=== PATIENT | female | born 1965 | race Caucasian/White ===

== ENCOUNTER 2021-02-06 16:05 | Inpatient (IN) | payer SELFPAY ==
[2021-02-06] VITALS (7 sets, daily range): BP systolic 99–145; BP diastolic 79–113; PULSE 120–157; RESP 16–27; TEMP 36.6; O2SAT 94–96; BMI 42.5
--- NOTE | 2021-02-06 16:33 | XRR_ITS ---
PROCEDURE INFORMATION: Exam: XR Chest Exam date and time: 02/06/2021 4:37 PM Age: 55 years old Clinical indication: Shortness of breath; Additional info: SOB TECHNIQUE: Imaging protocol: XR of the chest. Views: 1 view. COMPARISON: No relevant prior studies available. FINDINGS: Lungs: Well inflated and clear. Pleural spaces: Unremarkable. No pleural effusion. No pneumothorax. Heart/Mediastinum: The cardiac shadow is significantly enlarged. Bones/joints: No acute abnormality. XR/XR chest 1V portable [id number] IMPRESSION: Significant enlargement of the cardiac shadow.
--- NOTE | 2021-02-06 16:36 | ECG_ITS ---
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1965 Requested By: Gomez Ty Order Number: [id number] Reading MD: DAVID TY Measurements Intervals [place] Rate: 154 P: [place]: QRS: 64 QRSD: 64 T: 0 QT: 142 QTc: 227 Interpretive Statements ATRIAL FLUTTER/TACHYCARDIA WITH RAPID VENTRICULAR RESPONSE LOW QRS VOLTAGE IN PRECORDIAL LEADS [QRS DEFLECTION < 1.0 mV IN CHEST LEADS] NONSPECIFIC ST & T-WAVE ABNORMALITY CRITICAL TEST RESULT No previous ECG available for comparison Electronically Signed On 02-06-2021 21:15:47 CDT by DAVID TY [id number]
--- NOTE | 2021-02-06 16:42 | W.ED.SOB ---
HPI - SOB/Dyspnea General: Chief Complaint: Shortness of Breath/Dyspnea Stated Complaint: sob Time Seen by Provider: 02/06/21 16:22 History of Present Illness: HPI Narrative: 85-year-old female comes in with shortness of breath. She states this started on Sunday. She states Sunday and Sunday night at work she felt hot and then cold. She does not think she had a fever though. She has been having a very little cough and not coughing anything up. She denies nausea or vomiting, no pain or burning with urination, no diarrhea or constipation, no abdominal pain no flank pain. She has no previous history of any asthma, emphysema or COPD. She has not used inhalers previously however she states that 2 hours ago she used a friend's albuterol per nebulizer. She states that did seem to help. She denies any chest pain. She states she can tell that her heart is going a little fast but she denies any palpitations. She states since Sunday her heart rate has been 100-150. She states if she tries to exert herself she gets more short of breath. Associated symptoms: Reports orthopnea and palpitations (Patient states she did feel her heart beating fast. She denied any chest p); Deny abdominal pain, chest pain, extremity pain, fever(s), hemoptysis, lightheadedness, nausea, syncope or vomiting Review of Systems Const: Reports: other (Patient states she did feel hot and cold.); Denies: fever(s), chills, body aches, change in weight or night sweats Card: Reports: palpitations (Patient states she did feel her heart beating fast. She denied any chest p), dyspnea on exertion and orthopnea; Denies: chest pain, edema, swelling of feet/ankles, lightheadedness, syncope or pre-syncope Resp: Reports: dyspnea and wheezing; Denies: productive cough, non-productive cough, pain on inspiration or hemoptysis GI: Denies: abdominal pain, nausea or vomiting : Denies: flank pain, difficulty voiding, dysuria, urinary frequency or urinary urgency Musc: Denies: neck pain, back pain, extremity pain, extremity swelling, joint pain or joint swelling Neuro: Denies: headache(s), numbness in extremities, weakness in extremities or lack of coordination Physical Exam Narrative: EXAM NARRATIVE: 55-year-old female comes in with shortness of breath. She appears to be in no acute distress. Const: COMMON NORMALS: patient oriented x3 and alert GENERAL APPEARANCE: not lethargic ORIENTATION/CONSCIOUSNESS: Yes oriented to person, Yes oriented to place and Yes oriented to time; not lethargic HENMT: COMMON NORMALS: normocephalic, atraumatic and hearing grossly normal bilaterally HEAD & SCALP: normocephalic and atraumatic MOUTH: Normal oral and palatal mucosa present Eye: COMMON NORMALS: Equal, round and reactive pupils present, EOMs intact bilaterally, conjunctivae normal, no scleral icterus and no papilledema GENERAL EYE: appearance normal, both eyes and all related structures and normal light reflex CONJUNCTIVA: Yes conjunctivae normal PUPIL: Yes Equal, round and reactive pupils present DIRECT OPHTHALMOSCOPY: Yes normal light reflex and Yes no papilledema Neck/C-Spine: COMMON NORMALS: full ROM, no lymphadenopathy, supple, no meningeal signs, no JVD and Thyroid normal GENERAL: Yes normal visual inspection, Yes trachea midline and No anterior neck swelling THYROID: Thyroid normal CERVICAL SPINE: Yes cervical ROM normal and No pain with cervical ROM Resp: COMMON NORMALS: negative for No retractions, negative for No use of accessory muscles and negative for clear to auscultation bilaterally EFFORT & INSPECTION: Yes able to speak in complete sentences, Yes symmetric chest movement, No abnormal respiratory pattern, No tachypneic, No respiratory distress, No decreased respiratory effort, No labored, No grunting, No stridor, No Actively coughing, No retractions and No uses accessory muscles AUSCULTATION: not clear to auscultation bilaterally, crackles, no rales, no rhonchi, wheezes and diminished lung sounds Cardio: COMMON NORMALS: no JVD, regular rate, regular rhythm, No gallops present (Cardio), No clicks present (Cardio), No murmurs present (Cardio), No rub (Cardio) and Peripheral pulses 2+ throughout RATE: regular rate RHYTHM: regular rhythm HEART SOUNDS: no murmurs PERIPHERAL PULSES: Peripheral pulses 2+ throughout GI: COMMON NORMALS: Soft to palpation, non-tender, No hepatosplenomegaly present, no masses and no bruits INSPECTION: Yes normal to inspection AUSCULTATION: Yes normoactive bowel sounds PALPATION: Yes Soft to palpation, No Firmness to palpation present (GI), No Tenderness to palpation present (GI), No Guarding due to palpation present (GI), No Rigid due to palpation and Yes No hepatosplenomegaly present : COMMON NORMALS: Yes no CVA tenderness BLADDER/KIDNEY EXAM: Yes no CVA tenderness Back/Pelvis: COMMON NORMALS: no CVA tenderness Extremity: COMMON NORMALS: normal to inspection, full ROM, capillary refill normal, no joint enlargement, no clubbing, cyanosis or edema, no calf tenderness and no pedal edema GENERAL: Yes normal exam except as noted Neuro: COMMON NORMALS: patient oriented x3, moves all extremities and no focal motor deficits SENSORIUM/ORIENTATION: Yes alert, Yes oriented to person, Yes oriented to place, Yes oriented to time, Yes Orientation impaired, No lethargic, No somnolent, No obtunded and No stuporous MENINGEAL SIGNS: Yes no meningeal signs Course Vital Signs: Vital signs: Vital Signs Temperature 97.8 F 02/06/21 16:09 Pulse Rate 157 H 02/06/21 16:09 Respiratory Rate 18 02/06/21 16:09 Blood Pressure 139/101 02/06/21 16:09 Pulse Oximetry 96 02/06/21 16:09 MDM - SOB/Dyspnea Lab Data: Labs: Lab Results 02/06/21 02/06/21 02/06/21 Range/Units 17:00 17:00 17:00 WBC 8.1 (4.0-10.0) 10^3/ uL RBC 4.53 (4.1-5.3) 10^6/u L Hgb 12.9 (11.5-15.3) g/dL Hct 41.5 (37.0-47.0) % MCV 91.6 (81-99) fL MCH 28.5 (28.0-34.0) pg MCHC 31.1 (30.0-36.0) g/dL RDW 12.9 (12.1-15.1) % Plt Count 295 (130-400) 10^3/c mm MPV 11.1 H (7.4-10.4) fL Neut % (Auto) 72.7 % Lymph % (Auto) 19.7 % [place] % (Auto) 5.1 % Eos % (Auto) 1.5 % Baso % (Auto) 0.6 % Neut # (Auto) 5.90 (1.8-7.7) 10^3/u L Lymph # (Auto) 1.6 (0.8-4.8) 10^3/u L [place] # (Auto) 0.4 (0.2-0.9) 10^3/u L Eos # (Auto) 0.1 (0.0-0.8) 10^3/u L Baso # (Auto) 0.1 (0.0-0.1) 10^3/u L Nucleated RBC % (a uto) 0 % Nucleated RBCs # 0.0 /100WBC Sodium 141 (136-145) mmol/L Potassium 4.0 (3.5-5.1) mmol/L Chloride 106 (98-107) mmol/L Carbon Dioxide 24 (22-29) mmol/L Anion Gap 15.0 (5-19) BUN 17 (6-20) mg/dL Creatinine 0.5 (0.5-0.9) mg/dL GFR Calculation 127.2 (90-130) mL/min Glucose 108 (65-115) mg/dL Calculated Osmolal ity 294 (285-295) mOsm/k g Lactate (0.5-2.2) mmol/L Calcium 8.2 L (8.5-10.5) mg/dL Magnesium 2.0 (1.7-2.3) mg/dL Total Bilirubin 0.5 (0.15-1.2) mg/dL AST 114 H (0-32) U/L ALT 184 H (0-33) U/L Alkaline Phosphata se 164 H (35-105) IU/L Troponin T Baselin e 32 H (0-10) ng/L NT-Pro-B Natriuret Pep 2866 H (0-125) pg/mL Total Protein 6.2 L (6.6-8.7) g/dL Albumin 4.1 (3.5-5.2) g/dL Globulin 2.1 (1.3-4.6) g/dL 02/06/21 Range/Units 17:14 WBC (4.0-10.0) 10^3/ uL RBC (4.1-5.3) 10^6/u L Hgb (11.5-15.3) g/dL Hct (37.0-47.0) % MCV (81-99) fL MCH (28.0-34.0) pg MCHC (30.0-36.0) g/dL RDW (12.1-15.1) % Plt Count (130-400) 10^3/c mm MPV (7.4-10.4) fL Neut % (Auto) % Lymph % (Auto) % [place] % (Auto) % Eos % (Auto) % Baso % (Auto) % Neut # (Auto) (1.8-7.7) 10^3/u L Lymph # (Auto) (0.8-4.8) 10^3/u L [place] # (Auto) (0.2-0.9) 10^3/u L Eos # (Auto) (0.0-0.8) 10^3/u L Baso # (Auto) (0.0-0.1) 10^3/u L Nucleated RBC % (a uto) % Nucleated RBCs # /100WBC Sodium (136-145) mmol/L Potassium (3.5-5.1) mmol/L Chloride (98-107) mmol/L Carbon Dioxide (22-29) mmol/L Anion Gap (5-19) BUN (6-20) mg/dL Creatinine (0.5-0.9) mg/dL GFR Calculation (90-130) mL/min Glucose (65-115) mg/dL Calculated Osmolal ity (285-295) mOsm/k g Lactate 1.3 (0.5-2.2) mmol/L Calcium (8.5-10.5) mg/dL Magnesium (1.7-2.3) mg/dL Total Bilirubin (0.15-1.2) mg/dL AST (0-32) U/L ALT (0-33) U/L Alkaline Phosphata se (35-105) IU/L Troponin T Baselin e (0-10) ng/L NT-Pro-B Natriuret Pep (0-125) pg/mL Total Protein (6.6-8.7) g/dL Albumin (3.5-5.2) g/dL Globulin (1.3-4.6) g/dL Discharge Plan Discharge Prescriptions: No Action multivitamin Tablet 1 tab PO DAILY RF: 0 aspirin 325 mg Tablet 325 mg PO DAILY RF: 0 Tylenol Extra Strength 500 mg Tablet 1,000 mg PO PRN RF: 0 Coding Level of Care Code ED Secondary History Teacher for Richie Weber
[2021-02-06 17:10] LABS: Basophils # 0.1 10^3/uL (0.0-0.1); Basophils % 0.6 %; Eosinophils # 0.1 10^3/uL (0.0-0.8); Eosinophils % 1.5 %; Hematocrit 41.5 % (37.0-47.0); Hemoglobin 12.9 g/dL (11.5-15.3); Lymphocytes # 1.6 10^3/uL (0.8-4.8); Lymphocytes % 19.7 %; Mean Corpuscular HGB Conc 31.1 g/dL (30.0-36.0); Mean Corpuscular Hemoglobin 28.5 pg (28.0-34.0); Mean Corpuscular Volume 91.6 fL (81-99); Mean Platelet Volume 11.1 fL (7.4-10.4); Monocytes # 0.4 10^3/uL (0.2-0.9); Monocytes % 5.1 %; Neutrophils % 72.7 %; Nucleated Red Blood Cells % 0 %; Platelet Count 295 10^3/cmm (130-400); Red Blood Count 4.53 10^6/uL (4.1-5.3); Red Cell Distribution Width 12.9 % (12.1-15.1); White Blood Count 8.1 10^3/uL (4.0-10.0)
[2021-02-06 17:31] LABS: Troponin(5th) Baseline 32 ng/L (0-10)
[2021-02-06 17:44] LABS: Lactate (Lactic Acid level) 1.3 mmol/L (0.5-2.2)
[2021-02-06 17:48] LABS: Alanine Aminotransferase 184 U/L (0-33); Albumin Level 4.1 g/dL (3.5-5.2); Alkaline Phosphatase 164 IU/L (35-105); Aspartate Amino Transferase 114 U/L (0-32); Blood Urea Nitrogen 17 mg/dL (6-20); Calcium 8.2 mg/dL (8.5-10.5); Carbon Dioxide 24 mmol/L (22-29); Chloride 106 mmol/L (98-107); Globulin 2.1 g/dL (1.3-4.6); Glomerular Filtration Rate 127.2 mL/min (90-130); Glucose 108 mg/dL (65-115); NT Pro B Type Natriuretic Pept 2866 pg/mL (0-125); Osmolality Calculated 294 mOsm/kg (285-295); Sodium 141 mmol/L (136-145); Total Bilirubin 0.5 mg/dL (0.15-1.2); Total Protein 6.2 g/dL (6.6-8.7)
[2021-02-06 18:21] LABS: INR 1.09 (0.8-1.2); Partial Thromboplastin Time 28.3 SECONDS (23.9-36.7)
--- NOTE | 2021-02-06 18:36 | ECG_ITS ---
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1965 Requested By: Gomez Ty Order Number: [id number] Reading MD: DAVID TY Measurements Intervals [place] Rate: 155 P: [place]: QRS: 63 QRSD: 105 T: -84 QT: 294 QTc: 473 Interpretive Statements ATRIAL FLUTTER/TACHYCARDIA WITH RAPID VENTRICULAR RESPONSE MODERATE T-WAVE ABNORMALITY, CONSIDER INFERIOR ISCHEMIA [-0.1+ mV T WAVE IN II/aVF] CRITICAL TEST RESULT Compared to ECG 02/06/2021 16:47:43 Possible ischemia now present T-wave abnormality still present Electronically Signed On 02-06-2021 21:16:33 CDT by DAVID TY [id number]
[2021-02-06] MEDS: labetalol 5 mg/mL SDV 20mL 10 MG IVP ×2 (18:50→20:20)
[2021-02-06] MEDS: esmolol drip 2,500 MG/250 ML PREMIX 30.6 MG IV (19:25)
[2021-02-06 20:15] LABS: Troponin 5 2HR 40.75 ng/L (0-10); Troponin 5 2HR Delta 8.75 ABS# (0-10)
--- NOTE | 2021-02-06 22:36 | ECG_ITS ---
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1965 Requested By: Gomez Ty Order Number: [id number] Reading MD: DAVID TY Measurements Intervals [place] Rate: 144 P: 73 IA: 154 QRS: 37 QRSD: 78 T: 191 QT: 302 QTc: 468 Interpretive Statements SINUS TACHYCARDIA, POSSIBLE ATRIAL FLUTTER LOW QRS VOLTAGE IN PRECORDIAL LEADS [QRS DEFLECTION < 1.0 mV IN CHEST LEADS] NONSPECIFIC T-WAVE ABNORMALITY Compared to ECG 02/06/2021 18:38:46 Low QRS voltage now present Possible ischemia no longer present T-wave abnormality still present Electronically Signed On 02-06-2021 21:16:28 CDT by DAVID TY [id number]
[2021-02-06] MEDS: sodium chloride 0.9% 500 ML 999 ML IV (22:46)
[2021-02-06] MEDS: LORazepam 2 mg/mL INJ 1 mL 1 MG IVP (22:46)
[2021-02-06 23:01] LABS: D Dimer 1.52 ug/mIFEU (0-0.59)
--- NOTE | 2021-02-06 23:13 | CTR_ITS ---
PROCEDURE INFORMATION: Exam: CTA Chest With Contrast Exam date and time: 02/06/2021 11:38 PM Age: 55 years old Clinical indication: Shortness of breath; Patient HX: C/O cp and SOB worsening x 1 week hr 140; Additional info: Chest pain TECHNIQUE: Imaging protocol: Computed tomographic angiography of the chest with contrast. 3D rendering (Not supervised by radiologist): MIP and/or 3D reconstructed images were created by the technologist. Radiation optimization: All CT scans at this facility use at least one of these dose optimization techniques: automated exposure control; mA and/or kV adjustment per patient size (includes targeted exams where dose is matched to clinical indication); or iterative reconstruction. Contrast material: OMNI 350; Contrast volume: 83 ml; Contrast route: INTRAVENOUS (IV); COMPARISON: CR (CHEST, ) 02/06/2021 4:55 PM RADIATION DOSE METRICS: Total DLP (mGy-cm): 512.33 FINDINGS: Pulmonary arteries: The segmental and subsegmental right upper lobe pulmonary arteries are not well evaluated due to streak artifact. Otherwise no evidence of pulmonary embolus. The pulmonary trunk is normal in caliber. Aorta: No acute abnormality. Veins: Reflux of contrast into the hepatic veins and IVC. Lungs: Minimal right basilar atelectasis. Pleural spaces: Small right trace left pleural effusions. Heart: The heart is enlarged. Trace pericardial effusion. The RV to LV ratio is normal. Lymph nodes: No enlarged lymph nodes. Bones/joints: No acute fracture. Soft tissues: Within normal limits. CT/CT angio chest PE protcl [id number] IMPRESSION: 1. The segmental and subsegmental right upper lobe pulmonary arteries are not well evaluated due to streak artifact. Otherwise no evidence of pulmonary embolus. 2. Small right and trace left pleural effusions. Minimal right basilar atelectasis. 3. Cardiomegaly and trace pericardial effusion. Radiation Dose CTDIVOL = (mGy): DLP = 512.33 (mGy-cm)
--- NOTE | 2021-02-06 23:17 | PM.HP ---
Providers/Chief Complaint Chief Complaint: sob History of Present Illness Poonam Javier is a 55 year old female with no significant past medical history who presents to emergency room with complaints of shortness of breath and palpitations for last 7 to 10 days. Initially intermittent then it became more frequent and currently is constant and severe. Denies any similar episodes in the past. Evaluation in ER revealed atrial flutter with RVR. ER physician spoke with Dr. Ty, on-call steam press operator. The patient was given 2 doses of labetalol and 2 doses of diltiazem without improvement of the heart rate. Then the patient was started on esmolol drip which did not help either. Then the patient was given bolus of amiodarone, again without significant effect. 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 Denies cough, fever or chills, chest pain, nausea or vomiting, diarrhea. Denies any similar episodes in the past. Review of Systems General: Reports: 10 or more systems reviewed and unremarkable except in HPI and below Medications/Allergies Home Medications Medication Instructions Recorded Confirmed Last Taken Type acetaminophen [Tylenol Extra 1,000 mg PO PRN 02/06/21 02/06/21 Unknown History Strength] aspirin 325 mg PO DAILY 02/06/21 02/06/21 02/06/21 10:00 History multivitamin 1 tab PO DAILY 02/06/21 02/06/21 02/05/21 History Allergies Allergy/AdvReac Type Severity Reaction Status Date / Time amoxicillin Allergy ADR-Itching Verified 02/06/21 16:13 Penicillins Allergy ALGY-Rash Verified 02/06/21 16:46 Vitals/I&O/Wt Last Vital Signs Temp 97.8 F 02/06/21 16:09 Pulse 144 H 02/06/21 21:39 Resp 16 02/06/21 21:39 BP 99/85 02/06/21 21:39 Pulse Ox 96 02/06/21 21:39 02/06/21 02/06/21 02/07/21 14:59 22:59 06:59 Intake Total 161.288 / 161.288 Balance 161.288 / 161.288 Weight last 48 hrs Weight 102.058 kg Physical Exam Narrative: EXAM NARRATIVE: The patient is awake alert oriented. No acute distress. Mood and affect are appropriate. And responses are adequate. Skin is warm and dry. Worsening tremors Eyes PERRL, extraocular muscles are intact Neck supple. No JVD Normal speech Lungs bilateral wheezes are present. No respiratory distress at rest. Heart. S1, S2, irregularly irregular Abdomen is obese, soft, nontender, bowel sounds are present Extremities no edema cyanosis or calf tenderness bilaterally Neuro examination is nonfocal Data : 02/06/21 17:00 02/06/21 17:00 Other Labs: Laboratory Results WBC 8.1 10^3/uL (4.0-10.0) 02/06/21 17:00 RBC 4.53 10^6/uL (4.1-5.3) 02/06/21 17:00 Hgb 12.9 g/dL (11.5-15.3) 02/06/21 17:00 Hct 41.5 % (37.0-47.0) 02/06/21 17:00 MCV 91.6 fL (81-99) 02/06/21 17:00 MCH 28.5 pg (28.0-34.0) 02/06/21 17:00 MCHC 31.1 g/dL (30.0-36.0) 02/06/21 17:00 RDW 12.9 % (12.1-15.1) 02/06/21 17:00 Plt Count 295 10^3/cmm (130-400) 02/06/21 17:00 MPV 11.1 fL (7.4-10.4) H 02/06/21 17:00 Neut % (Auto) 72.7 % 02/06/21 17:00 Lymph % (Auto) 19.7 % 02/06/21 17:00 [place] % (Auto) 5.1 % 02/06/21 17:00 Eos % (Auto) 1.5 % 02/06/21 17:00 Baso % (Auto) 0.6 % 02/06/21 17:00 Neut # (Auto) 5.90 10^3/uL (1.8-7.7) 02/06/21 17:00 Lymph # (Auto) 1.6 10^3/uL (0.8-4.8) 02/06/21 17:00 [place] # (Auto) 0.4 10^3/uL (0.2-0.9) 02/06/21 17:00 Eos # (Auto) 0.1 10^3/uL (0.0-0.8) 02/06/21 17:00 Baso # (Auto) 0.1 10^3/uL (0.0-0.1) 02/06/21 17:00 Nucleated RBC % (auto) 0 % 02/06/21 17:00 Nucleated RBCs # 0.0 /100WBC 02/06/21 17:00 PT 14.40 SECONDS (12.1-14.9) 02/06/21 17:14 INR 1.09 (0.8-1.2) 02/06/21 17:14 APTT 28.3 SECONDS (23.9-36.7) 02/06/21 17:14 D-Dimer 1.52 ug/mIFEU (0-0.59) H 02/06/21 17:14 Sodium 141 mmol/L (136-145) 02/06/21 17:00 Potassium 4.0 mmol/L (3.5-5.1) 02/06/21 17:00 Chloride 106 mmol/L (98-107) 02/06/21 17:00 Carbon Dioxide 24 mmol/L (22-29) 02/06/21 17:00 Anion Gap 15.0 (5-19) 02/06/21 17:00 BUN 17 mg/dL (6-20) 02/06/21 17:00 Creatinine 0.5 mg/dL (0.5-0.9) 02/06/21 17:00 GFR Calculation 127.2 mL/min (90-130) 02/06/21 17:00 Glucose 108 mg/dL (65-115) 02/06/21 17:00 Calculated Osmolality 294 mOsm/kg (285-295) 02/06/21 17:00 Lactate 1.3 mmol/L (0.5-2.2) 02/06/21 17:14 Calcium 8.2 mg/dL (8.5-10.5) L 02/06/21 17:00 Magnesium 2.0 mg/dL (1.7-2.3) 02/06/21 17:00 Total Bilirubin 0.5 mg/dL (0.15-1.2) 02/06/21 17:00 AST 114 U/L (0-32) H 02/06/21 17:00 ALT 184 U/L (0-33) H 02/06/21 17:00 Alkaline Phosphatase 164 IU/L (35-105) H 02/06/21 17:00 Troponin T Baseline 32 ng/L (0-10) H 02/06/21 17:00 Troponin T 120 Minute 40.75 ng/L (0-10) H 02/06/21 19:35 Delta Troponin T 8.75 ABS# (0-10) 02/06/21 19:35 NT-Pro-B Natriuret Pep 2866 pg/mL (0-125) H 02/06/21 17:00 Total Protein 6.2 g/dL (6.6-8.7) L 02/06/21 17:00 Albumin 4.1 g/dL (3.5-5.2) 02/06/21 17:00 Globulin 2.1 g/dL (1.3-4.6) 02/06/21 17:00 Impressions Chest X-Ray 02/06/21 16:33 IMPRESSION: Significant enlargement of the cardiac shadow. Micro: Microbiology 02/06/21 17:40 Blood Culture - Preliminary Blood SPECIMEN COLLECTED 02/06/21 17:14 Blood Culture - Preliminary Blood SPECIMEN COLLECTED A&P Additional A&P Information 55-year-old female with no significant past medical history who is presenting with palpitations and shortness of breath. Has atrial flutter with RVR. BNP is elevated. Atrial flutter, RVR. Did not respond to beta-andrew or calcium channel andrew. Did not improve with bolus of amiodarone. Currently amiodarone drip is being initiated. Discussed with Dr. Ty. We will try digoxin if amiodarone drip is not effective. Additionally the patient will receive IV fluids for possible dehydration. Her D-dimer is elevated. We will send her to CT to rule out PE. Will start Lovenox. We will check her TSH Dehydration. Gentle hydration. Elevated BNP. Her CHF could be due to RVR. I think it is reasonable to try to gently hydrate her in order to control her ventricular rate. However if her breathing worsens will consider diuretics. Elevated LFTs. She denies history of alcohol. Could be from fatty liver. We will monitor this. We will probably require outpatient work-up and close monitoring. CODE STATUS. She wants to be full code. The plan of care was discussed with the patient and her significant other who is at the bedside. They verbalized understanding and agreement. Attestations Medical Necessity Statement*: Based on my assessment of her current condition and findings she needs to be admitted to ICU for very close monitoring and IV cardiac medications. I expect that the patient will spend more than 2 midnights in the hospital. Critical care time spent on this encounter is 55 minutes. Coding Level of Care Code Acute Export Coordinator for Richie Weber
[2021-02-06 23:51] LABS: Troponin 5 6HR 34.93 ng/L (0-10); Troponin 5 6HR Delta 2.93 ng/L (0-12)
[2021-02-07] VITALS (43 sets, daily range): BP systolic 103–141; BP diastolic 55–110; PULSE 0–146; RESP 13–42; TEMP 36.3; O2SAT 87–98
[2021-02-07] MEDS: iohexol 350 mg/mL 100 mL Btl IV (00:18)
[2021-02-07] MEDS: enoxaparin 100 mg/mL Syringe SUBCUT ×2 (00:48→10:46)
[2021-02-07 02:19] LABS: Add Urine Microscopic? YES; Bilirubin Urine 1+ (Negative); Blood Urine 2+ (Negative); Glucose Urine UA Norm (Normal); Ketones Urine 1+ (Negative); Leukocyte Esterase Urine Negative (Negative); Nitrate Urine Negative (Negative); Protein Urine 2+ (Negative); Urine Appearance SL Hazy (CLEAR); Urine Color Yellow (Yellow); Urobilinogen Urine 1 mg/dL (Negative); pH Urine 5 (5-7)
[2021-02-07 02:20] LABS: Add Urine Culture? No; Bacteria Urine 3+ /hpf; Mucus Urine 2+ /hpf; Squamous Epithelial Cell Urine >100 /hpf (0-5)
[2021-02-07] MEDS: LORazepam 2 mg/mL INJ 1 mL 1 MG IVP (02:35)
[2021-02-07] MEDS: digoxin 250 mcg/ml INJ 2 mL IVP (02:36)
[2021-02-07] MEDS: lactated ringers 1,000 ML 75 ML IV (02:37)
--- NOTE | 2021-02-07 02:43 | PC.NURSE ---
SOB Pt complaining of shortness of breath. Pt breathing 28 times a minute, panting and mumbling oh god between breaths. Lungs clear throughout, oxygen saturation 95% room air. Pt remains in Afib rvr rate is 138. Dr. Roberts called nurse and gave orders for administration of 250mcg IVP digoxin. Also gave orders for 1mg IV Ativan. Pt laying far on left side, declines position changes at this time.
[2021-02-07 05:06] LABS: Alanine Aminotransferase 173 U/L (0-33); Albumin Level 3.8 g/dL (3.5-5.2); Alkaline Phosphatase 150 IU/L (35-105); Anion Gap 17.5 (5-19); Aspartate Amino Transferase 93 U/L (0-32); Blood Urea Nitrogen 20 mg/dL (6-20); Calcium 7.7 mg/dL (8.5-10.5); Carbon Dioxide 20 mmol/L (22-29); Chloride 106 mmol/L (98-107); Globulin 2.3 g/dL (1.3-4.6); Glucose 158 mg/dL (65-115); Osmolality Calculated 296 mOsm/kg (285-295); Potassium 3.5 mmol/L (3.5-5.1); Sodium 140 mmol/L (136-145); Thyroid Stimulating Hormone 0.89 uIU/mL (0.27-4.20); Total Bilirubin 0.7 mg/dL (0.15-1.2); Total Protein 6.1 g/dL (6.6-8.7)
[2021-02-07 05:25] LABS: Basophils % 0.4 %; Eosinophils % 0.1 %; Hematocrit 41.1 % (37.0-47.0); Hemoglobin 12.4 g/dL (11.5-15.3); Lymphocytes % 12.5 %; Mean Corpuscular HGB Conc 30.2 g/dL (30.0-36.0); Mean Corpuscular Volume 96.3 fL (81-99); Mean Platelet Volume 11.4 fL (7.4-10.4); Monocytes # 0.4 10^3/uL (0.2-0.9); Neutrophils % 81.5 %; Nucleated Red Blood Cells % 0 %; Platelet Count 279 10^3/cmm (130-400); Red Blood Count 4.27 10^6/uL (4.1-5.3)
[2021-02-07] MEDS: ALPRAZolam 0.25 mg Tablet 0.125 MG PO ×2 (06:22→20:23)
[2021-02-07] MEDS: digoxin 250 mcg/ml INJ 2 mL 125 MCG IVP (06:23)
--- NOTE | 2021-02-07 09:10 | P.CONIM_ITS ---
Providers/Reason For Consult Consulting Physican/Specialty*: Cardiology Reason for Consult*: New onset of heart failure, atrial flutter with rapid ventricle response. Attending Physician: Xu Cox MD History of Present Illness History of Present Illness Poonam Javier is a 55 year old female past medical history significant hypertension was admitted with worsening of shortness of breath PND orthopnea by noted to have atrial flutter with rapid ventricle response. According to the patient for the past few days she has been feeling off and on fluttering sensation but she did not know what is going on. She also admits to worsening of shortness of breath which is going on for months but in the last 1 week she noticed orthopnea and post nocturnal dyspnea. She thinks that she continues to gain weight but this is going on for many years. She denies any history of diabetes mellitus or smoking. In the ER she was given Cardizem bolus and started on esmolol drip despite of that she did not slow down. She was then switched to amiodarone. We have been asked to assist in her care. When I saw her this morning patient continues to be in A. fib with RVR. She appeared to be volume overloaded. She denies chest pain Review of Systems General: Reports: 10 or more systems reviewed and unremarkable except in HPI and below Const: Reports: other (Patient states she did feel hot and cold.); Denies: fever(s), chills, body aches, change in weight or night sweats Card: Reports: palpitations (Patient states she did feel her heart beating fast. She denied any chest p), dyspnea on exertion and orthopnea; Denies: chest pain, edema, swelling of feet/ankles, lightheadedness, syncope or pre-syncope Resp: Reports: dyspnea and wheezing; Denies: productive cough, non-productive cough, pain on inspiration or hemoptysis GI: Denies: abdominal pain, nausea or vomiting : Denies: flank pain, difficulty voiding, dysuria, urinary frequency or urinary urgency Musc: Denies: neck pain, back pain, extremity pain, extremity swelling, joint pain or joint swelling Neuro: Denies: headache(s), numbness in extremities, weakness in extremities or lack of coordination Meds/Allergies Home Medications and Allergies Home Medications Medication Instructions Recorded Confirmed Last Taken Type acetaminophen [Tylenol Extra 1,000 mg PO PRN 02/06/21 02/06/21 Unknown History Strength] aspirin 325 mg PO DAILY 02/06/21 02/06/21 02/06/21 10:00 History multivitamin 1 tab PO DAILY 02/06/21 02/06/21 02/05/21 History Allergies Allergy/AdvReac Type Severity Reaction Status Date / Time amoxicillin Allergy ADR-Itching Verified 02/06/21 16:13 Penicillins Allergy ALGY-Rash Verified 02/06/21 16:46 Current Medications Current Medications Generic Name Dose Route Start Last Admin Trade Name Freq PRN Reason Stop Dose Admin Alprazolam 0.125 mg 02/07/21 06:09 02/07/21 06:22 Alprazolam 0.25 Mg Tablet PO 0.125 mg TID PRN Administration ANXIETY Enoxaparin Sodium 100 mg 02/06/21 23:45 02/07/21 00:48 Enoxaparin 100 Mg/Ml Syringe SUBCUT 100 mg Q12H MALLORY Administration Amiodarone HCl 900 mg/ 518 mls @ 0 mls/hr 02/06/21 22:45 02/07/21 06:07 Dextrose/ IV Miscellaneous IV 0.5 mg/min Supplies .Q0M MALLORY 17.3 mls/hr Titration Protocol Per Protocol Lactated Ringer's 1,000 mls @ 75 mls/hr 02/06/21 23:15 02/07/21 02:37 Lactated Ringers IV 02/07/21 12:34 75 mls/hr .[id number] MALLORY Administration Vitals/I&O/Wt Last Vital Signs Temp 97.4 F L 02/07/21 08:00 Pulse 138 H 02/07/21 08:00 Resp 19 H 02/07/21 08:00 BP 118/99 02/07/21 08:00 Pulse Ox 95 02/07/21 08:00 02/06/21 02/07/21 02/07/21 22:59 06:59 14:59 Intake Total 161.288 / 161.288 241.5 / 402.788 603 / 603 Output Total 300 / 300 Balance 161.288 / 161.288 -58.5 / 102.788 603 / 603 Weight last 48 hrs Weight 264 lb 1.6 oz Weight 264 lb 1.6 oz Weight 225 lb Physical Exam Narrative: EXAM NARRATIVE: GENERAL: Patient is alert, awake and oriented x3. NECK: No jugular vein distension. HEENT: No cyanosis. No icterus. No pallor. HEART: Regularly irregular S1 and S2. No murmur, rub or gallop. LUNGS: Clear to auscultate bilaterally. ABDOMEN: Soft, nontender and nondistended. Positive bowel sounds. No guarding, rebound or tenderness. CENTRAL NERVOUS SYSTEM: Grossly nonfocal. EXTREMITIES: Lower extremities with 1+ edema bilaterally. Data Micro: Micro: Microbiology 02/06/21 17:40 Blood Culture - Pr eliminary Blood [facility] 02/06/21 17:14 Blood Culture - Pr eliminary Blood [facility] A&P Assessment and plan (1) Atrial flutter: Patient was started on amiodarone she has not converted back in sinus rhythm. At this point I will add metoprolol to the regimen. I will diurese patient as she is volume overloaded which also can drive her heart rate high, due to high end-diastolic pressure. Once slow down will ask for echocardiogram to assess LV function Status: Acute Qualifiers: Atrial flutter type: atypical Qualified Code(s): I48.4 - Atypical atrial flutter (2) CHF (congestive heart failure): We will start patient on IV diuresis with 60 mg of Lasix twice a day and 20 mEq of potassium. Continue to Status: Acute Qualifiers: Heart failure chronicity: acute Heart failure type: unspecified Qualified Code(s): I50.9 - Heart failure, unspecified (3) Essential hypertension: Well-controlled. 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
[2021-02-07] MEDS: FUROsemide 10 mg/mL SDV 10mL 60 MG IVP ×2 (09:33→20:55)
[2021-02-07] MEDS: potassium chloride ER 20 mEq Tablet PO ×2 (09:51→17:07)
--- NOTE | 2021-02-07 17:20 | PM.PN ---
Subjective Subjective: Interval history: Patient admitted overnight. H&P and labs noted. On examination patient sitting comfortably in chair. She denies any nausea vomiting, headache. She continues to remain in A. fib with RVR. States her breathing is better. She denies of feeling any palpitations at present. Vitals/I&O/Wt Last Vital Signs Temp 97.4 F L 02/07/21 08:00 Pulse 140 H 02/07/21 16:00 Resp 19 H 02/07/21 16:00 BP 118/99 02/07/21 08:00 Pulse Ox 95 02/07/21 08:00 02/07/21 02/07/21 02/07/21 06:59 14:59 22:59 Intake Total 241.5 / 860.691 3026.5 / 1213.5 Output Total 300 / 300 1200 / 1200 400 / 1600 Balance -58.5 / 102.788 13.5 / 13.5 -400 / -386.5 Weight last 48 hrs Weight 119.794 kg Weight 119.794 kg Weight 102.058 kg Physical Exam Narrative: EXAM NARRATIVE: The patient is awake alert oriented. No acute distress. Mood and affect are appropriate. And responses are adequate. Skin is warm and dry. Worsening tremors Eyes PERRL, extraocular muscles are intact Neck supple. No JVD Normal speech Lungs bilateral wheezes are present. No respiratory distress at rest. Heart. S1, S2, irregularly irregular Abdomen is obese, soft, nontender, bowel sounds are present Extremities no edema cyanosis or calf tenderness bilaterally Neuro examination is nonfocal Data : 02/07/21 03:50 02/07/21 03:50 Micro: Microbiology 02/06/21 17:40 Blood Culture - Preliminary Blood SPECIMEN COLLECTED 02/06/21 17:14 Blood Culture - Preliminary Blood SPECIMEN COLLECTED A&P Additional A&P Information 55-year-old female with no significant past medical history who is presenting with palpitations and shortness of breath. Has atrial flutter with RVR. BNP is elevated. Atrial flutter, RVR: Continue with amiodarone load for now. Patient still drinks. Will give bolus 150 again. It is quite possible if patient continues to remain in A. fib with RVR she will require DENNIS cardioversion. Stop IV fluids. Start patient on IV Lasix 40 mg twice daily. Strict input output charting. Daily weights. Echocardiogram awaited. Continue with Lovenox 1 mg/kg body weight for anticoagulation for now. Appreciate Dr Ty's recommendations. Congestive heart failure: Echocardiogram awaited. Most likely secondary to rapid ventricular response. Continue with Lasix for now. Oxygen supplementation keeping saturation over 92. Transaminitis: Could be secondary to congestive hepatomegaly versus secondary to obesity. Check hepatitis panel, HIV. Ultrasound liver. We will continue to monitor. She does not have PCP or insurance. Will ask case management of financial assistance and PCP if possible. Check iron panel because folic acid, vitamin B12 levels, lipid panel, HbA1c. CODE STATUS. She wants to be full code. Lovenox will help with DVT PPx. The plan of care was discussed with the patient and her significant other who is at the bedside. They verbalized understanding and agreement. Attestations Medical Necessity Statement*: Patient requires further hospitalization for management of A. fib with RVR, congestive heart failure. Critical Care Time: Amnio drip for A. 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
[2021-02-07] MEDS: metoprolol tartrate 25 mg Tablet PO (17:56)
[2021-02-07 19:14] LABS: Gamma Glutamyl Transferase 308 U/L (5-36); Iron 42 ug/dL (37-145); Percent Saturation 16.1 % (20-50); Total Iron Binding Capacity 260 mcg/dl; Unsaturated Iron Binding 218 ug/dL (112-347)
[2021-02-07 19:15] LABS: HIV 1 & 2 Antibody Non-Reactive (Non-Reactiv); HIV 1 & 2 Antigen Non-Reactive (Non-Reactiv)
[2021-02-07 20:32] LABS: Hepatitis A Antibody IgM Non-Reactive (Nonreactive); Hepatitis B Core AB, Total Non-Reactive (Nonreactive); Hepatitis B Surface AB 3.5 (11.5-1000); Hepatitis B Surface Antigen Non-Reactive (Nonreactive); Hepatitis C Virus Antibody Non-Reactive (Nonreactive)
[2021-02-08] VITALS (39 sets, daily range): BP systolic 86–157; BP diastolic 63–119; PULSE 96–144; RESP 14–27; TEMP 36.6–36.8; O2SAT 90–98
[2021-02-08] MEDS: enoxaparin 100 mg/mL Syringe SUBCUT ×3 (00:24→23:20)
[2021-02-08] MEDS: diphenhydrAMINE 50 mg/mL SDV 1mL 25 MG IVP (00:50)
[2021-02-08 03:43] LABS: Basophils # 0.1 10^3/uL (0.0-0.1); Basophils % 0.6 %; Eosinophils # 0.1 10^3/uL (0.0-0.8); Eosinophils % 0.9 %; Hematocrit 39.5 % (37.0-47.0); Hemoglobin 12.6 g/dL (11.5-15.3); Lymphocytes # 2.6 10^3/uL (0.8-4.8); Lymphocytes % 25.2 %; Mean Corpuscular HGB Conc 31.9 g/dL (30.0-36.0); Mean Corpuscular Hemoglobin 28.9 pg (28.0-34.0); Mean Corpuscular Volume 90.6 fL (81-99); Monocytes # 0.7 10^3/uL (0.2-0.9); Neutrophils # 6.69 10^3/uL (1.8-7.7); Neutrophils % 65.9 %; Nucleated Red Blood Cells % 0 %; Platelet Count 269 10^3/cmm (130-400); Red Blood Count 4.36 10^6/uL (4.1-5.3); Red Cell Distribution Width 12.8 % (12.1-15.1); White Blood Count 10.2 10^3/uL (4.0-10.0)
[2021-02-08 04:04] LABS: Alanine Aminotransferase 127 U/L (0-33); Albumin Level 3.6 g/dL (3.5-5.2); Alkaline Phosphatase 137 IU/L (35-105); Anion Gap 12.2 (5-19); Aspartate Amino Transferase 56 U/L (0-32); Blood Urea Nitrogen 18 mg/dL (6-20); Calcium 8.1 mg/dL (8.5-10.5); Carbon Dioxide 29 mmol/L (22-29); Chloride 102 mmol/L (98-107); Chol HDL Ratio 3.19 mg/dL (0.0-4.40); Cholesterol 118 mg/dL (0-200); Globulin 2.3 g/dL (1.3-4.6); Glomerular Filtration Rate 86.2 mL/min (90-130); Glucose 121 mg/dL (65-115); HDL Cholesterol 37 mg/dL (60-100); LDL Cholesterol Calculated 59 mg/dL (50-129); Osmolality Calculated 293 mOsm/kg (285-295); Potassium 3.2 mmol/L (3.5-5.1); Sodium 140 mmol/L (136-145); Total Bilirubin 0.5 mg/dL (0.15-1.2); Total Protein 5.9 g/dL (6.6-8.7); Triglycerides 108 mg/dL (0-150); VLDL Cholestrol Calculation 22 mg/dL (0-30)
[2021-02-08 04:12] LABS: Estmated Average Glucose 117; Hemoglobin A1C 5.7 % (4.0-6.0)
--- NOTE | 2021-02-08 07:55 | PC.NURSE ---
Physician Rounding Dr. Ty and this nurse at bedside discussing plan of care. Plans to perform a DENNIS w/ cardioversion later this afternoon. Pt verbalized understanding, asking, What time will this procedure be done exactly? This Nurse states, We will have to get ahold of anesthesiology to get a time. Pt verbalizes understanding. Will continue to monitor.
[2021-02-08] MEDS: potassium chloride ER 20 mEq Tablet PO ×2 (08:36→17:56)
[2021-02-08] MEDS: potassium chloride ER 20 mEq Tablet 40 MEQ PO (08:36)
[2021-02-08] MEDS: metoprolol tartrate 25 mg Tablet PO ×2 (08:37→20:16)
[2021-02-08] MEDS: acetaminophen 325 mg Tablet 650 MG PO ×3 (08:46→23:17)
[2021-02-08] MEDS: FUROsemide 10 mg/mL SDV 10mL 60 MG IVP ×2 (08:53→20:30)
[2021-02-08] MEDS: ALPRAZolam 0.25 mg Tablet 0.125 MG PO ×2 (10:50→23:17)
--- NOTE | 2021-02-08 10:50 | PC.NURSE ---
Pt complains SOB Pt complaining of shortness of breath feelings of being suffocated, vital signs listed below. Pt appears to be sweating and request for the fan to be turned back on and to be placed back on oxygen. Temperature therapy applied via cold wet wash cloth placed on pt forehead and fan turned back on. O2 0.5L NC applied. PRN Xanax 0.125MG PO given per patient's request. Immediately after pt states I already am feeling better, I believe it is just anxiety. I feel like I'm am having a anxiety attack. Will continue to monitor. Vital Signs TEMP: 97.8 oral HR: 141 (Afib) O2: 93% on 0.5L NC RR: 24 BP: 128/86 1200 Pt states, That xanax helped me so much, I took the oxygen off. I feel a whole lot better. O2: 96% on Room Air
--- NOTE | 2021-02-08 13:25 | P.ANESASSM_ITS ---
Pre-Anesthetic Assessment Pre-Anesthetic Assessment: Height/Weight: Height 1.55 m Weight 116.709 kg Temp Pulse Resp BP Pulse Ox 97.8 F 142 H 22 H 128/86 96 02/08/21 12:00 02/08/21 13:08 02/08/21 13:08 02/08/21 12:00 02/08/21 13:08 Preop Diagnosis: Atrial flutter Proposed Procedure: Operation Date: 02/08/21 16:00 Proposed Procedures p DENNIS (Transesophageal Echocardiogram)(Not Applicable) - Osmin Ty MD Familial anesthetic complications: None Was Beta Tania taken within 24 hours: N/A Was Clonidine taken within 24 hours: N/A Last intake: NPO > 8 hrs Social: Social History: No alcohol and No tobacco Exam: Pre-Anes Outpt Exam: alert, oriented x 3, clear to auscultation bilaterally and regular rate & rhythm Airway: Cervical ROM: WNL MP: 4 Dentition: Full CV/HEM: CV/HEM: Afib, CHF and HTN Hepatic: Comments: increased LFTS Metabolic: Metabolic: Morbid obesity Anesthetic Plan: ASA status: 3 Anesthesia: MAC Risk of > 500 ml blood loss (7ml/kg in children): No Meds/Allergies Current Medications: Current Medications Generic Name Dose Route Start Last Admin Trade Name Freq PRN Reason Stop Dose Admin Acetaminophen 650 mg 02/08/21 08:43 02/08/21 08:46 Acetaminophen 32 5 Mg Tablet PO 650 mg Q6H PRN Administration MILD PAIN Alprazolam 0.125 mg 02/07/21 06:09 02/08/21 10:50 Alprazolam 0.25 Mg Tablet PO 0.125 mg TID PRN Administration ANXIETY Enoxaparin Sodium 100 mg 02/06/21 23:45 02/08/21 10:49 Enoxaparin 100 M g/Ml Syringe SUBCUT 100 mg Q12H MALLORY Administration Furosemide 60 mg 02/07/21 09:30 02/08/21 08:53 Furosemide 10 Mg /Ml Sdv 10ml IVP 60 mg Q12H MALLORY Administration Amiodarone HCl 900 mg/ 518 mls @ 0 mls/h r 02/06/21 22:45 02/07/21 22:56 Dextrose/ IV Misce llaneous IV 0.5 mg/min Supplies .Q0M MALLORY 17.3 mls/hr Administration Protocol Per Protocol Metoprolol Tartrat e 25 mg 02/07/21 18:00 02/08/21 08:37 Metoprolol Tartr ate 25 Mg Tablet PO 25 mg BID@0900,2100 MALLORY Administration Potassium Chloride 20 meq 02/07/21 09:30 02/08/21 08:36 Potassium Chlori de Er 20 Meq Table t PO 20 meq BID MALLORY Administration Data Anesthesia CBC & Chem 7: 02/08/21 03:30 02/08/21 03:30 Other Labs: Laboratory Results - last 48 hr 02/06/21 02/06/21 02/06/21 17:00 17:00 17:00 WBC 8.1 RBC 4.53 Hgb 12.9 Hct 41.5 MCV 91.6 MCH 28.5 MCHC 31.1 RDW 12.9 Plt Count 295 MPV 11.1 H Neut % (Auto) 72.7 Lymph % (Auto) 19.7 [place] % (Auto) 5.1 Eos % (Auto) 1.5 Baso % (Auto) 0.6 Neut # (Auto) 5.90 Lymph # (Auto) 1.6 [place] # (Auto) 0.4 Eos # (Auto) 0.1 Baso # (Auto) 0.1 Nucleated RBC % (auto) 0 Nucleated RBCs # 0.0 PT INR APTT D-Dimer Sodium 141 Potassium 4.0 Chloride 106 Carbon Dioxide 24 Anion Gap 15.0 BUN 17 Creatinine 0.5 GFR Calculation 127.2 Glucose 108 Estimat Average Glucose Hemoglobin A1c Calculated Osmolality 294 Lactate Calcium 8.2 L Magnesium 2.0 Iron TIBC % Saturation Unsat Iron Binding Total Bilirubin 0.5 GGT AST 114 H ALT 184 H Alkaline Phosphatase 164 H Troponin T Baseline 32 H Troponin T 120 Minute Delta Troponin T Troponin T Hi Sens 6Hr Troponin T Hi Sens 6Hr Delta NT-Pro-B Natriuret Pep 2866 H Total Protein 6.2 L Albumin 4.1 Globulin 2.1 Triglycerides Cholesterol LDL Cholesterol, Calc Total VLDL Cholesterol HDL Cholesterol Cholesterol/HDL Ratio TSH Urine Color Urine Appearance Urine pH Ur Specific [place] Urine Protein Urine Glucose (UA) Urine Ketones Urine Blood Urine Nitrate Urine Bilirubin Urine Urobilinogen Ur Leukocyte Esterase Urine RBC Urine WBC Ur Squamous Epith Cells Amorphous Sediment Urine Bacteria Hyaline Casts Urine Mucus Hepatitis A IgM Ab Hep Bs Antigen Hep Bs Antibody Hep B Core Total Ab Hepatitis C Antibody HIV 1&2 Ab & HIV 1 Ag HIV 1&2 Antibody 02/06/21 02/06/21 02/06/21 17:14 17:14 17:14 WBC RBC Hgb Hct MCV MCH MCHC RDW Plt Count MPV Neut % (Auto) Lymph % (Auto) [place] % (Auto) Eos % (Auto) Baso % (Auto) Neut # (Auto) Lymph # (Auto) [place] # (Auto) Eos # (Auto) Baso # (Auto) Nucleated RBC % (auto) Nucleated RBCs # PT 14.40 INR 1.09 APTT 28.3 D-Dimer 1.52 H Sodium Potassium Chloride Carbon Dioxide Anion Gap BUN Creatinine GFR Calculation Glucose Estimat Average Glucose Hemoglobin A1c Calculated Osmolality Lactate 1.3 Calcium Magnesium Iron TIBC % Saturation Unsat Iron Binding Total Bilirubin GGT AST ALT Alkaline Phosphatase Troponin T Baseline Troponin T 120 Minute Delta Troponin T Troponin T Hi Sens 6Hr Troponin T Hi Sens 6Hr Delta NT-Pro-B Natriuret Pep Total Protein Albumin Globulin Triglycerides Cholesterol LDL Cholesterol, Calc Total VLDL Cholesterol HDL Cholesterol Cholesterol/HDL Ratio TSH Urine Color Urine Appearance Urine pH Ur Specific [place] Urine Protein Urine Glucose (UA) Urine Ketones Urine Blood Urine Nitrate Urine Bilirubin Urine Urobilinogen Ur Leukocyte Esterase Urine RBC Urine WBC Ur Squamous Epith Cells Amorphous Sediment Urine Bacteria Hyaline Casts Urine Mucus Hepatitis A IgM Ab Hep Bs Antigen Hep Bs Antibody Hep B Core Total Ab Hepatitis C Antibody HIV 1&2 Ab & HIV 1 Ag HIV 1&2 Antibody 02/06/21 02/06/21 02/07/21 19:35 23:30 01:50 WBC RBC Hgb Hct MCV MCH MCHC RDW Plt Count MPV Neut % (Auto) Lymph % (Auto) [place] % (Auto) Eos % (Auto) Baso % (Auto) Neut # (Auto) Lymph # (Auto) [place] # (Auto) Eos # (Auto) Baso # (Auto) Nucleated RBC % (auto) Nucleated RBCs # PT INR APTT D-Dimer Sodium Potassium Chloride Carbon Dioxide Anion Gap BUN Creatinine GFR Calculation Glucose Estimat Average Glucose Hemoglobin A1c Calculated Osmolality Lactate Calcium Magnesium Iron TIBC % Saturation Unsat Iron Binding Total Bilirubin GGT AST ALT Alkaline Phosphatase Troponin T Baseline Troponin T 120 Minute 40.75 H Delta Troponin T 8.75 Troponin T Hi Sens 6Hr 34.93 H Troponin T Hi Sens 6Hr Delta 2.93 NT-Pro-B Natriuret Pep Total Protein Albumin Globulin Triglycerides Cholesterol LDL Cholesterol, Calc Total VLDL Cholesterol HDL Cholesterol Cholesterol/HDL Ratio TSH Urine Color Yellow Urine Appearance Sl hazy Urine pH 5 Ur Specific [place] 1.020 Urine Protein 2+ H Urine Glucose (UA) Norm Urine Ketones 1+ H Urine Blood 2+ H Urine Nitrate Negative Urine Bilirubin 1+ H Urine Urobilinogen 1 H Ur Leukocyte Esterase Negative Urine RBC 5-10 H Urine WBC 5-10 H Ur Squamous Epith Cells >100 H Amorphous Sediment Not Reportable Urine Bacteria 3+ H Hyaline Casts 5-10 H Urine Mucus 2+ Hepatitis A IgM Ab Hep Bs Antigen Hep Bs Antibody Hep B Core Total Ab Hepatitis C Antibody HIV 1&2 Ab & HIV 1 Ag HIV 1&2 Antibody 02/07/21 02/07/21 02/07/21 03:50 03:50 03:50 WBC 8.0 RBC 4.27 Hgb 12.4 Hct 41.1 MCV 96.3 D MCH 29.0 MCHC 30.2 RDW 13.0 Plt Count 279 MPV 11.4 H Neut % (Auto) 81.5 Lymph % (Auto) 12.5 [place] % (Auto) 5.0 Eos % (Auto) 0.1 Baso % (Auto) 0.4 Neut # (Auto) 6.50 Lymph # (Auto) 1.0 [place] # (Auto) 0.4 Eos # (Auto) 0.0 Baso # (Auto) 0.0 Nucleated RBC % (auto) 0 Nucleated RBCs # 0.0 PT INR APTT D-Dimer Sodium 140 Potassium 3.5 Chloride 106 Carbon Dioxide 20 L Anion Gap 17.5 BUN 20 Creatinine 0.6 GFR Calculation 103.0 Glucose 158 H Estimat Average Glucose Hemoglobin A1c Calculated Osmolality 296 H Lactate Calcium 7.7 L Magnesium 2.0 Iron TIBC % Saturation Unsat Iron Binding Total Bilirubin 0.7 GGT AST 93 H ALT 173 H Alkaline Phosphatase 150 H Troponin T Baseline Troponin T 120 Minute Delta Troponin T Troponin T Hi Sens 6Hr Troponin T Hi Sens 6Hr Delta NT-Pro-B Natriuret Pep Total Protein 6.1 L Albumin 3.8 Globulin 2.3 Triglycerides Cholesterol LDL Cholesterol, Calc Total VLDL Cholesterol HDL Cholesterol Cholesterol/HDL Ratio TSH 0.89 Urine Color Urine Appearance Urine pH Ur Specific [place] Urine Protein Urine Glucose (UA) Urine Ketones Urine Blood Urine Nitrate Urine Bilirubin Urine Urobilinogen Ur Leukocyte Esterase Urine RBC Urine WBC Ur Squamous Epith Cells Amorphous Sediment Urine Bacteria Hyaline Casts Urine Mucus Hepatitis A IgM Ab Non-reactive Hep Bs Antigen Non-reactive Hep Bs Antibody 3.5 L Hep B Core Total Ab Non-reactive Hepatitis C Antibody Non-reactive HIV 1&2 Ab & HIV 1 Ag HIV 1&2 Antibody 02/07/21 02/07/21 02/08/21 03:50 03:50 03:30 WBC 10.2 H RBC 4.36 Hgb 12.6 Hct 39.5 MCV 90.6 D MCH 28.9 MCHC 31.9 D RDW 12.8 Plt Count 269 MPV 11.0 H Neut % (Auto) 65.9 Lymph % (Auto) 25.2 [place] % (Auto) 7.0 Eos % (Auto) 0.9 Baso % (Auto) 0.6 Neut # (Auto) 6.69 Lymph # (Auto) 2.6 [place] # (Auto) 0.7 Eos # (Auto) 0.1 Baso # (Auto) 0.1 Nucleated RBC % (auto) 0 Nucleated RBCs # 0.0 PT INR APTT D-Dimer Sodium Potassium Chloride Carbon Dioxide Anion Gap BUN Creatinine GFR Calculation Glucose Estimat Average Glucose Hemoglobin A1c Calculated Osmolality Lactate Calcium Magnesium Iron 42 TIBC 260 % Saturation 16.1 L Unsat Iron Binding 218 Total Bilirubin GGT 308 H AST ALT Alkaline Phosphatase Troponin T Baseline Troponin T 120 Minute Delta Troponin T Troponin T Hi Sens 6Hr Troponin T Hi Sens 6Hr Delta NT-Pro-B Natriuret Pep Total Protein Albumin Globulin Triglycerides Cholesterol LDL Cholesterol, Calc Total VLDL Cholesterol HDL Cholesterol Cholesterol/HDL Ratio TSH Urine Color Urine Appearance Urine pH Ur Specific [place] Urine Protein Urine Glucose (UA) Urine Ketones Urine Blood Urine Nitrate Urine Bilirubin Urine Urobilinogen Ur Leukocyte Esterase Urine RBC Urine WBC Ur Squamous Epith Cells Amorphous Sediment Urine Bacteria Hyaline Casts Urine Mucus Hepatitis A IgM Ab Hep Bs Antigen Hep Bs Antibody Hep B Core Total Ab Hepatitis C Antibody HIV 1&2 Ab & HIV 1 Ag Non-reactive HIV 1&2 Antibody Non-reactive 02/08/21 02/08/21 02/08/21 03:30 03:30 03:30 WBC RBC Hgb Hct MCV MCH MCHC RDW Plt Count MPV Neut % (Auto) Lymph % (Auto) [place] % (Auto) Eos % (Auto) Baso % (Auto) Neut # (Auto) Lymph # (Auto) [place] # (Auto) Eos # (Auto) Baso # (Auto) Nucleated RBC % (auto) Nucleated RBCs # PT INR APTT D-Dimer Sodium 140 Potassium 3.2 L Chloride 102 Carbon Dioxide 29 Anion Gap 12.2 BUN 18 Creatinine 0.7 GFR Calculation 86.2 L Glucose 121 H Estimat Average Glucose 117 Hemoglobin A1c 5.7 Calculated Osmolality 293 Lactate Calcium 8.1 L Magnesium Iron TIBC % Saturation Unsat Iron Binding Total Bilirubin 0.5 GGT AST 56 H ALT 127 H Alkaline Phosphatase 137 H Troponin T Baseline Troponin T 120 Minute Delta Troponin T Troponin T Hi Sens 6Hr Troponin T Hi Sens 6Hr Delta NT-Pro-B Natriuret Pep Total Protein 5.9 L Albumin 3.6 Globulin 2.3 Triglycerides 108 Cholesterol 118 LDL Cholesterol, Calc 59 Total VLDL Cholesterol 22 HDL Cholesterol 37 L Cholesterol/HDL Ratio 3.19 TSH Urine Color Urine Appearance Urine pH Ur Specific [place] Urine Protein Urine Glucose (UA) Urine Ketones Urine Blood Urine Nitrate Urine Bilirubin Urine Urobilinogen Ur Leukocyte Esterase Urine RBC Urine WBC Ur Squamous Epith Cells Amorphous Sediment Urine Bacteria Hyaline Casts Urine Mucus Hepatitis A IgM Ab Hep Bs Antigen Hep Bs Antibody Hep B Core Total Ab Hepatitis C Antibody HIV 1&2 Ab & HIV 1 Ag HIV 1&2 Antibody Micro: Microbiology 02/06/21 17:40 Blood Culture - Preliminary Blood NEGATIVE TO DATE 02/06/21 17:14 Blood Culture - Preliminary Blood NEGATIVE TO DATE Cardiac Studies: No Data to Display
--- NOTE | 2021-02-08 15:30 | P.PN_ITS ---
Subjective Subjective: Interval history: Patient continues to remain in A. fib with RVR. Has diuresed well overnight. Hemodynamically stable. Afebrile. On room air saturating 86%. Documented urine output more than 3 L. Vitals/I&O/Wt Last Vital Signs Temp 97.8 F 02/08/21 12:00 Pulse 140 H 02/08/21 14:00 Resp 25 H 02/08/21 14:00 BP 157/89 02/08/21 14:00 Pulse Ox 96 02/08/21 14:00 02/08/21 02/08/21 02/08/21 06:59 14:59 22:59 Intake Total 0 / 1490.0 Output Total 1500 / 3700 1200 / 1200 Balance -1500 / -2210.0 -1200 / -1200 Weight last 48 hrs Weight 116.709 kg Weight 119.794 kg Weight 119.794 kg Weight 102.058 kg Physical Exam Narrative: EXAM NARRATIVE: The patient is awake alert oriented. No acute distress. Mood and affect are appropriate. And responses are adequate. Skin is warm and dry. Worsening tremors Eyes PERRL, extraocular muscles are intact Neck supple. No JVD Normal speech Lungs bilateral wheezes are present. No respiratory distress at rest. Heart. S1, S2, irregularly irregular Abdomen is obese, soft, nontender, bowel sounds are present Extremities no edema cyanosis or calf tenderness bilaterally Neuro examination is nonfocal Data : 02/08/21 03:30 02/08/21 03:30 Micro: Microbiology 02/06/21 17:40 Blood Culture - Preliminary Blood NEGATIVE TO DATE 02/06/21 17:14 Blood Culture - Preliminary Blood NEGATIVE TO DATE A&P Additional A&P Information 55-year-old female with no significant past medical history who is presenting with palpitations and shortness of breath. Has atrial flutter with RVR. BNP is elevated. Atrial flutter, RVR: Continues to remain in rapid ventricular response. Continue with amiodarone per protocol for now. Plan for DENNIS cardioversion today. Echocardiogram awaited. Continue Lasix 60 mg IV twice daily. Metoprolol added as per cardiology recommendations. Lovenox 1 mg/kg body weight every 12 hourly for now. We will switch over to Eliquis prior to discharge. Congestive heart failure: Echocardiogram awaited. Most likely secondary to rapid ventricular response. Continue with Lasix for now. Oxygen supplementation keeping saturation over 92. Transaminitis: Could be secondary to congestive hepatomegaly versus secondary to obesity. Hepatitis panel, HIV negative. Ultrasound liver. We will continue to monitor. She does not have PCP or insurance. Will ask case management of financial assistance and PCP if possible. Iron panel, lipid panel, A1c, TSH results appreciated. CODE STATUS. She wants to be full code. Lovenox will help with DVT PPx. The plan of care was discussed with the patient and her significant other who is at the bedside. They verbalized understanding and agreement. Attestations Medical Necessity Statement*: Patient requires further hospitalization for management of atrial fibrillation with RVR requiring DENNIS cardioversion. Critical Care Time: Critical Care Time (min): 50 Coding Level of Care Code Acute Vocational Education Teacher for Richie Weber
[2021-02-08] MEDS: sodium chloride 0.9% 1,000 ML 30 ML IV (15:50)
--- NOTE | 2021-02-08 16:00 | USCV_ITS ---
Poonam Javier Age: 55 Gender: F : 1965 Exam Date: 02/08/2021 16:01 Ordering Phys: Osmin Ty MD ([email or web address]) Technologist: Terri Andersno [place] [facility] [place] A FLUTTER WITH CARDIOVERSION BP: 122 / 95 HR: 139 Rhythm: Sinus Technical Quality: Good MEASUREMENTS (Male / Female) Normal Values Medications Patient given IV sedation by anesthesia service, for details please refer to the anesthesia report. Complications None. Proc. Components This is a limited study due to as patient was not able to tolerate therefore we have to shorten it. FINDINGS Left Ventricle Right Ventricle Right Atrium Left Atrium LA Appendage IA Septum Mitral Valve Aortic Valve Tricuspid Valve Pulmonic Valve Pericardium Aorta CONCLUSIONS This exam was completed on a [employer] Aplio 500 with a PST-30BT Multi-Frequency Sector Transducer. 1-Due to foreshortening views secondary to instability of patient, we cannot assess LV function however it appeared to be normal grossly and at least 55% 2-All the valves including aortic tricuspid pulmonic and mitral appear to be opening and closing fine hemodynamics cannot be assessed due to lack of doppler data 3-left atrial appendage appeared to be normal and free of clot 4-Proceed with DC cardioversion Osmin Ty MD (Electronically Signed) Final Date: 19 Feb 2021 18:40 S
--- NOTE | 2021-02-08 17:54 | ANE.PACU2 ---
Inpatient post-anesthesia follow up: Airway intact: Yes Vital signs: Temperature 97.8 F Pulse Rate [Left B rachial] 157 Pulse Rate 143 Respiratory Rate 19 Blood Pressure [Ri ght Arm] 139/101 Blood Pressure 122/95 Pulse Oximetry 96 Oxygen Delivery Me thod Room Air Oxygen Flow Rate Fraction of Inspir ed Oxygen Hydration adequate: Yes Nausea and vomiting: No Pain level: 1 Mental status: Baseline
[2021-02-08] MEDS: amiodarone 200 mg Tablet 400 MG PO (17:55)
--- NOTE | 2021-02-08 21:19 | P.PN_ITS ---
Subjective Subjective: Interval history: Status post electrical cardioversion with the help of transesophageal echocardiogram Medications: Reviewed: Yes Vitals/I&O/Wt Last Vital Signs Temp 97.8 F 02/08/21 12:00 Pulse 104 H 02/08/21 19:00 Resp 22 H 02/08/21 19:00 BP 100/84 02/08/21 19:00 Pulse Ox 95 02/08/21 19:00 02/08/21 02/08/21 02/08/21 06:59 14:59 22:59 Intake Total 0 / 1490.0 847.913 / 847.913 Output Total 1500 / 3700 1200 / 1200 Balance -1500 / -2210.0 -1200 / -1200 847.913 / -352.087 Weight last 48 hrs Weight 257 lb 4.8 oz Weight 264 lb 1.6 oz Weight 264 lb 1.6 oz Physical Exam Narrative: EXAM NARRATIVE: GENERAL: Patient is alert, awake and oriented x3. NECK: No jugular vein distension. HEENT: No cyanosis. No icterus. No pallor. HEART: Regular S1 and S2. No murmur, rub or gallop. LUNGS: Clear to auscultate bilaterally. ABDOMEN: Soft, nontender and nondistended. Positive bowel sounds. No guarding, rebound or tenderness. CENTRAL NERVOUS SYSTEM: Grossly nonfocal. EXTREMITIES: Lower extremities without edema bilaterally. Pulses palpable in the lower extremities, both dorsalis pedis and posterior tibial. Data : 02/08/21 03:30 02/08/21 03:30 Micro: Microbiology 02/06/21 17:40 Blood Culture - Preliminary Blood NEGATIVE TO DATE 02/06/21 17:14 Blood Culture - Preliminary Blood NEGATIVE TO DATE A&P Assessment and plan (1) Atrial flutter: Despite of 24-hour out amiodarone patient did not converted to sinus rhythm. Today we performed DENNIS guided electrical cardioversion which remained successful currently patient is in sinus rhythm. We will switch patient to oral 400 mg of amiodarone will keep metoprolol 25 mg twice daily. Continue anticoagulation Status: Acute Qualifiers: Atrial flutter type: atypical Qualified Code(s): I48.4 - Atypical atrial flutter (2) Essential hypertension: Well-controlled continue medicine Status: Acute (3) CHF (congestive heart failure): Continue IV diuresis. Status: Acute Qualifiers: Heart failure type: unspecified Heart failure chronicity: acute Qualified Code(s): I50.9 - Heart failure, unspecified Attestations Medical Necessity Statement*: Patient require continuation hospitalization for above defined care Coding Level of Care Code Established Pt Acute Infantry Unit Leader for g Fwd Patient Type Established History Detailed Exam Detailed Medical Decision Making Moderate Complexity Diagnoses Atrial flutter I48.4 Atrial flutter type: atypical Essential hypertension I10 CHF (congestive heart failure) I50.9 Heart failure type: unspecified Heart failure chronicity: acute
[2021-02-09] VITALS (38 sets, daily range): BP systolic 95–134; BP diastolic 51–110; PULSE 74–101; RESP 12–36; TEMP 35.9–36.8; O2SAT 94–99
--- NOTE | 2021-02-09 05:18 | PC.NURSE ---
Shift Summary Patient was cardioverted at the end of day shift, Heart rate is in the low 100s, Patient seems to have severe anxiety and has complained of side pain and abdominal cramping. Her cramping became severe enough that I called Dr Og at 0 to see if he had any suggestions to help her with her abdominal cramping, he ordered a 1 time dose of Ativan. When I went to give her the Ativan her IV went bad and was removed from her wrist. She was then attempted 4 times to get an IV on and on day shift she was attempted on multiple times with ultrasound and anesthesia with only one small 22 as success, since that iv went bad I was not able to give her Ativan so had to waste it and proceed with her Xanax. After giving her Tylenol and Xanax she rested comfortably the duration of the night.
[2021-02-09] MEDS: metoprolol tartrate 25 mg Tablet PO ×2 (08:50→21:16)
[2021-02-09] MEDS: potassium chloride ER 20 mEq Tablet PO ×2 (08:50→18:05)
[2021-02-09] MEDS: acetaminophen 325 mg Tablet 650 MG PO (09:39)
[2021-02-09] MEDS: FUROsemide 40 mg Tablet 60 MG PO ×2 (09:40→18:04)
--- NOTE | 2021-02-09 09:56 | PC.CHAP ---
Pastoral Care Encounter/Spiritual Assessment Type of Contact [] Declined four h agent visit [] Patient/Family/Request visit [] Outpatient visit [] Follow-up visit [] Physician referral [] Code/Alert [] Routine visit [] Staff referral [] Actively dying [] Patient sleeping [] Family support [] [] Out of room [] Palliative care [] [] Receiving care in room [] Pre-surgical visit [] Trauma [] Long length of stay [x] ICU visit [] Other: Relational/Emotional Strength [x] Patient feels connected with others/family/visitors/staff [] Distress [] Loneliness/isolation [] Abandonment Spirituality of Patient [x] Person of Lily [x] Attends Confucianist of their Lily [x] Believes in Prayer [x] Reads Bible or Anglican materials [] There are Spiritual issues to be addressed Configuration Engineer Interventions [x] Prayer [x] Active listening [x] Non-anxious presence [x] Spiritual/emotional support [] Crisis/trauma care [] Spiritual counseling [] Bereavement support [] Provided bereavement packet [] Provided Bible/devotional materials [] Provided toy/stuffed animal, coloring book to patient or family member [] Provided Communion [] Anointing/[place] [] Salvation [x] Completed spiritual assessment [] Other: Impact on Illness or Injury [] Angry [] Fearful [] Anxious [] Often cries [] Exhaustion [] Unable to work [] Unable to attend episcopal [] Unable to walk/stand [] Unable to read [] Unable to drive [] Unable to eat/drink [] Unable to sleep [] Unable to be with family [] Patient intubated [] Other: Summary Pt explained when she came to hospital, she did not believe she would be leaving to go home. She stated she is at peace, which somewhat surprised her. She is a person of lily. Accepted a Bible and a DB Time spent with patient 15m
--- NOTE | 2021-02-09 09:58 | PC.NURSE ---
[address] Clar[address] diet order with Dr. Cox. Orders for Cardiac diet. Reported that patient does not have an IV and is refusing anymore sticks. 0855 Dr. Ty at bedside. Reported that patient does not have an IV and is refusing replacement. Orders to change Lasix from IV to PO. Ok with him to transfer patient to Med/Surg with tele. Will plan to DC home in the next 24 hours. [address] Cox. Discussed medications and plan of care. Plan to transfer patient to med/surg with tele.
--- NOTE | 2021-02-09 10:09 | PM.PN ---
Subjective Subjective: Interval history: No acute events overnight. Patient underwent DENNIS cardioversion yesterday and has been NSR since then. She has remained hemodynamically stable and is currently on RA mantaining her saturations over 95% Medications: Reviewed: Yes Vitals/I&O/Wt Last Vital Signs Temp 97.8 F 02/09/21 07:00 Pulse 91 02/09/21 09:00 Resp 24 H 02/09/21 09:00 BP 97/51 02/09/21 09:00 Pulse Ox 96 02/09/21 09:00 02/08/21 02/09/21 02/09/21 22:59 06:59 14:59 Intake Total 947.913 / 947.913 150 / 1097.913 400 / 400 Output Total 750 / 1950 300 / 300 Balance 197.913 / -1002.087 150 / -852.087 100 / 100 Weight last 48 hrs Weight 116.936 kg Weight 116.709 kg Physical Exam Narrative: EXAM NARRATIVE: The patient is awake alert oriented. No acute distress. Mood and affect are appropriate. And responses are adequate. Skin is warm and dry. Worsening tremors Eyes PERRL, extraocular muscles are intact Neck supple. No JVD Normal speech Lungs bilateral wheezes are present. No respiratory distress at rest. Heart. S1, S2, irregularly irregular Abdomen is obese, soft, nontender, bowel sounds are present Extremities no edema cyanosis or calf tenderness bilaterally Neuro examination is nonfocal Data : 02/08/21 03:30 02/08/21 03:30 A&P Assessment and plan (1) Atrial flutter: Status: Acute Qualifiers: Atrial flutter type: atypical Qualified Code(s): I48.4 - Atypical atrial flutter (2) Atrial fibrillation status post cardioversion: Status: Acute (3) CHF (congestive heart failure): Status: Acute Qualifiers: Heart failure chronicity: acute Heart failure type: unspecified Qualified Code(s): I50.9 - Heart failure, unspecified (4) Essential hypertension: Status: Acute (5) Anxiety: Status: Acute Additional A&P Information 55-year-old female with no significant past medical history who is presenting with palpitations and shortness of breath. Has atrial flutter with RVR. BNP is elevated. Atrial flutter, RVR: NSR now. Post Cardioversion. Echo done but results awaited. Amio 400 mg PO QD, Lopressor 25 mg BID. Lasix 60 mg PO BID. For now c/w Lovenox 1 mg/kg body weight for now. Will switch to oral AC on discharge. Most likely Eliquis 5 mg PO BID. Will confirm with care management what medication will be easily and continuously as outpatient dependant on her social discord. Congestive heart failure: Echocardiogram awaited. Lasix as above Oxygen supplementation keeping saturation over 92. Transaminitis: Could be secondary to congestive hepatomegaly versus secondary to obesity. Hepatitis panel, HIV negative. Ultrasound liver. We will continue to monitor. Appointment has been made with PCP. Iron panel, lipid panel, A1c, TSH results appreciated. CODE STATUS. She wants to be full code. Lovenox will help with DVT PPx. The plan of care was discussed with the patient and her significant other who is at the bedside. They verbalized understanding and agreement. Transfer to Med/Surg Attestations Medical Necessity Statement*: Require further hospitalization for further management of Afib, post cardioversion Time Spent in Patient Care: Greater than 35 minutes (>than 50% of time spent in counselling and/or direct pt care on unit). Coding Level of Care Code Acute Floor Covering Printer Assistant for Richie Weber Diagnoses Atrial flutter I48.4 Atrial flutter type: atypical Atrial fibrillation status post cardioversion I48.91 CHF (congestive heart failure) I50.9 Heart failure chronicity: acute Heart failure type: unspecified Essential hypertension I10 Anxiety F41.9
[2021-02-09] MEDS: enoxaparin 100 mg/mL Syringe SUBCUT ×2 (11:31→22:53)
[2021-02-09] MEDS: amiodarone 200 mg Tablet 400 MG PO (18:05)
--- NOTE | 2021-02-09 20:20 | PM.PN ---
Subjective Subjective: Interval history: Yesterday patient underwent DENNIS guided electrical cardioversion continues to do fine. She is in sinus rhythm. She has been diuresed for heart failure. Medications: Reviewed: Yes Vitals/I&O/Wt Last Vital Signs Temp 97.8 F 02/09/21 20:00 Pulse 93 02/09/21 20:00 Resp 22 H 02/09/21 20:00 BP 130/82 02/09/21 20:00 Pulse Ox 98 02/09/21 20:00 02/09/21 02/09/21 02/09/21 06:59 14:59 22:59 Intake Total 150 / 7497.462 3745 / 1485 480 / 1965 Output Total 300 / 300 Balance 150 / -855.487 8530 / 1185 480 / 1665 Weight last 48 hrs Weight 257 lb 12.8 oz Weight 257 lb 4.8 oz Physical Exam Narrative: EXAM NARRATIVE: GENERAL: Patient is alert, awake and oriented x3. NECK: No jugular vein distension. HEENT: No cyanosis. No icterus. No pallor. HEART: Regular S1 and S2. No murmur, rub or gallop. LUNGS: Clear to auscultate bilaterally. ABDOMEN: Soft, nontender and nondistended. Positive bowel sounds. No guarding, rebound or tenderness. CENTRAL NERVOUS SYSTEM: Grossly nonfocal. EXTREMITIES: Lower extremities without edema bilaterally. Pulses palpable in the lower extremities, both dorsalis pedis and posterior tibial. Data : 02/08/21 03:30 02/08/21 03:30 A&P Assessment and plan (1) Atrial flutter: Currently in sinus rhythm post electrical cardioversion. Continue 400 mg of amiodarone and 25 mg of metoprolol twice daily. Continue anticoagulation Status: Acute Qualifiers: Atrial flutter type: atypical Qualified Code(s): I48.4 - Atypical atrial flutter (2) Essential hypertension: Well-controlled. Continue current regimen Status: Acute (3) CHF (congestive heart failure): Continue diuresis we will switch patient to 40 mg of Lasix twice a day from tomorrow Status: Acute Qualifiers: Heart failure type: unspecified Heart failure chronicity: acute Qualified Code(s): I50.9 - Heart failure, unspecified Attestations Medical Necessity Statement*: Patient require continuation hospitalization for above plan of care Coding Level of Care Code Established Pt Acute Client Sales And Service Officer for Chg Fwd Patient Type Established History Detailed Exam Detailed Medical Decision Making Moderate Complexity Diagnoses Atrial flutter I48.4 Atrial flutter type: atypical Essential hypertension I10 CHF (congestive heart failure) I50.9 Heart failure type: unspecified Heart failure chronicity: acute
[2021-02-09] MEDS: ALPRAZolam 0.25 mg Tablet 0.125 MG PO (22:53)
[2021-02-10 03:35] VITALS: BP 112/69; PULSE 80; RESP 16; TEMP 37.1; O2SAT 94
[2021-02-10] MEDS: acetaminophen 325 mg Tablet 650 MG PO (05:30)
[2021-02-10 05:52] LABS: Alanine Aminotransferase 109 U/L (0-33); Albumin Level 3.7 g/dL (3.5-5.2); Alkaline Phosphatase 136 IU/L (35-105); Anion Gap 13.9 (5-19); Aspartate Amino Transferase 44 U/L (0-32); Blood Urea Nitrogen 18 mg/dL (6-20); Calcium 7.8 mg/dL (8.5-10.5); Carbon Dioxide 31 mmol/L (22-29); Chloride 97 mmol/L (98-107); Globulin 2.4 g/dL (1.3-4.6); Glomerular Filtration Rate 86.2 mL/min (90-130); Glucose 113 mg/dL (65-115); Magnesium 1.7 mg/dL (1.7-2.3); Osmolality Calculated 291 mOsm/kg (285-295); Sodium 139 mmol/L (136-145); Total Bilirubin 0.6 mg/dL (0.15-1.2); Total Protein 6.1 g/dL (6.6-8.7)
[2021-02-10 05:53] LABS: Potassium 2.9 mmol/L (3.5-5.1)
[2021-02-10 06:00] VITALS: PULSE 82
[2021-02-10 08:00] VITALS: BP 113/76; PULSE 81; RESP 18; TEMP 37.1; O2SAT 94
[2021-02-10] MEDS: potassium chloride ER 20 mEq Tablet PO (08:16)
[2021-02-10] MEDS: FUROsemide 40 mg Tablet 60 MG PO (08:16)
[2021-02-10] MEDS: metoprolol tartrate 25 mg Tablet PO (08:16)
[2021-02-10] MEDS: amiodarone 200 mg Tablet 400 MG PO (08:16)
[2021-02-10 11:02] VITALS: BP 103/68; PULSE 77; RESP 18; TEMP 36.6; O2SAT 94
[2021-02-10] MEDS: potassium chloride ER 20 mEq Tablet 60 MEQ PO (13:20)
--- NOTE | 2021-02-10 13:49 | P.DS_ITS ---
Discharge Providers Date of Admission: 02/07/21 00:23 Date of Discharge: February 10, 2021 Attending Provider at Admission: Nba Roberts Attending Provider at Discharge: Lucia Soler MD Diagnoses at Discharge Discharge Diagnosis (1) Atrial flutter: Status: Acute Qualifiers: Atrial flutter type: atypical Qualified Code(s): I48.4 - Atypical atrial flutter (2) Essential hypertension: Status: Acute (3) CHF (congestive heart failure): Status: Acute Qualifiers: Heart failure chronicity: acute Heart failure type: unspecified Qualified Code(s): I50.9 - Heart failure, unspecified Reason for Visit Reason for Visit: sob Hospital Course Hospital Course 55 year old female past medical history significant hypertension was admitted with worsening of shortness of breath PND orthopnea by noted to have atrial flutter with rapid ventricle response. She was started on amiodarone however Despite 24-hour of amiodarone patient did not converted to sinus rhythm. On 02/08 she underwent DENNIS guided electrical cardioversion which remained successful ; currently patient is in sinus rhythm. She is being discharged today in stable condition with 400 mg of amiodarone and metoprolol 25 mg twice daily. Continued anticoagulation with Xarelto on discharge. Lasix 40 mg BID additionally added at discharge. Patient feels feel, hemodynamically stable at discharge. Physical Exam Narrative: EXAM NARRATIVE: GEN: Awake, alert and oriented, no acute distress CVS: S1S2 N RS: CTA B/L all areas Abd: Soft, nt/nd , bs+ RESEARCH BIOSTATISTICIAN: no focal neuro deficits Ext: no Le edema noted Discharge Data Data Completed and Pending: Completed Studies During Hospitalization Category Date Time Status CT angio chest PE protcl [id number] Urge nt Cat Scan 02/06/21 23:13 Completed XR chest 1V robin ble [id number] Urgent Exams 02/06/21 16:33 Completed Pending at discharge Category Date Time Status Blood Culture Sta t Lab 02/06/21 17:40 Results DENNIS [CV echo [place] sesophageal [id number]] Routine Ultrasound 02/08/21 16:00 Taken Labs from last 24 hours 02/10/21 04:30 Sodium 139 Potassium 2.9 L Chloride 97 L Carbon Dioxide 31 H Anion Gap 13.9 BUN 18 Creatinine 0.7 GFR Calculation 86.2 L Glucose 113 Calculated Osmolal ity 291 Calcium 7.8 L Magnesium 1.7 Total Bilirubin 0.6 AST 44 H ALT 109 H Alkaline Phosphata se 136 H Total Protein 6.1 L Albumin 3.7 Globulin 2.4 Vitals: Last Vital Signs Temp 97.8 F 02/10/21 11:02 Pulse 77 02/10/21 11:02 Resp 18 02/10/21 11:02 BP 103/68 02/10/21 11:02 Pulse Ox 94 02/10/21 11:02 Discharge Plan Discharge Patient Disposition: Home Condition: Stable Prescriptions: New potassium chloride [Klor-Con M20] 20 mEq Tablet,Er Particles/Crystals 20 meq PO BID Qty: 60 RF: 3 metoprolol tartrate 25 mg Tablet 25 mg PO BID@0900,2100 Qty: 60 RF: 3 furosemide 40 mg Tablet 40 mg PO BID@08,16 Qty: 60 RF: 3 rivaroxaban 20 mg tablet 20 mg PO DAILY Qty: 90 RF: 4 spironolactone [Aldactone] 25 mg tablet 25 mg PO DAILY Qty: 30 RF: 6 amiodarone [Pacerone] 200 mg Tablet 400 mg PO DAILY Qty: 30 RF: 3 Continued multivitamin Tablet 1 tab PO DAILY RF: 0 Tylenol Extra Strength 500 mg Tablet 1,000 mg PO PRN RF: 0 Changed aspirin 325 mg Tablet 81 mg PO DAILY Qty: 90 RF: 3 Discharge Orders: Discharge Order (Routine); Ordered 02/10/21 Ordered By: Lucia Soler Referrals: Aimee Chavira DO [Physician] - 02/21/21 10:30 am Kristan Somers FNP [Nurse Practitioner] - 02/17/21 2:00 pm Discharge Diet: Usual diet Discharge Activity: Resume usual activity Patient Instructions: Atrial Fibrillation, Metoprolol (By mouth), Spironolactone (By mouth), Furosemide (By mouth), Potassium Chloride (By mouth), Amiodarone (By mouth), Rivaroxaban (By mouth), Heart Failure (GEN), Transesophageal Echocardiogram (DC), CHF Stoplight, Opioid Safety Activity Restrictions/Additional Instructions: Keep a log of blood pressure pulse daily weight. If you gain more than 3 pounds in 2 consecutive days take extra Lasix and potassium. Please follow-up with Kristan Somers cardiology nurse practitioner in 7 days. We will perform EKG as well. You will be seeing Dr. Ty in 6 to 8 weeks Discharge Attestations Time Spent in Discharge Care*: greater than 30 min Quality Metrics Clinical Quality Measures During this hospital stay, did patient experience: None Coding Level of Care Code Acute Chg FW AL note Diagnoses Atrial flutter I48.4 Atrial flutter type: atypical Essential hypertension I10 CHF (congestive heart failure) I50.9 Heart failure chronicity: acute Heart failure type: unspecified
--- NOTE | 2021-02-10 13:51 | ECG_ITS ---
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 Measurements Intervals [place] Rate: 85 P: 42 IL: 169 QRS: 29 QRSD: 70 T: 152 QT: 369 QTc: 439 Interpretive Statements SINUS RHYTHM WITH OCCASIONAL VENTRICULAR PREMATURE COMPLEXES WITH OCCASIONAL SUPRAVENTRICULAR PREMATURE COMPLEXES LOW QRS VOLTAGE IN PRECORDIAL LEADS [QRS DEFLECTION < 1.0 mV IN CHEST LEADS] NONSPECIFIC ST & T-WAVE ABNORMALITY Compared to ECG 02/06/2021 20:51:13 Ventricular premature complex(es) now present T-wave abnormality still present Electronically Signed On 02-11-2021 7:43:14 CDT by Janneth Oscar M.D. [id number]
--- NOTE | 2021-02-10 14:23 | PM.PN ---
Subjective Subjective: Interval history: Stays in sinus rhythm. Appeared to be euvolemic Medications: Reviewed: Yes Vitals/I&O/Wt Last Vital Signs Temp 97.8 F 02/10/21 11:02 Pulse 77 02/10/21 11:02 Resp 18 02/10/21 11:02 BP 103/68 02/10/21 11:02 Pulse Ox 94 02/10/21 11:02 02/09/21 02/10/21 02/10/21 22:59 06:59 14:59 Intake Total 480 / 1965 600 / 2565 480 / 480 Output Total 400 / 700 850 / 1550 Balance 80 / 1265 -250 / 1015 480 / 480 Weight last 48 hrs Weight 255 lb 9.6 oz Weight 257 lb 12.8 oz Physical Exam Narrative: EXAM NARRATIVE: GENERAL: Patient is alert, awake and oriented x3. NECK: No jugular vein distension. HEENT: No cyanosis. No icterus. No pallor. HEART: Regular S1 and S2. No murmur, rub or gallop. LUNGS: Clear to auscultate bilaterally. ABDOMEN: Soft, nontender and nondistended. Positive bowel sounds. No guarding, rebound or tenderness. CENTRAL NERVOUS SYSTEM: Grossly nonfocal. EXTREMITIES: Lower extremities without edema bilaterally. Data : 02/08/21 03:30 02/10/21 04:30 A&P Assessment and plan (1) Atrial fibrillation status post cardioversion: Remains in sinus rhythm patient has been started on amiodarone 400 mg p.o. daily metoprolol 25 mg p.o. twice a day has been added as well, will add apixaban Status: Acute (2) Essential hypertension: Well-controlled. Continue current regimen Status: Acute (3) CHF (congestive heart failure): Well compensated. Will add Aldactone to the regimen Status: Acute Qualifiers: Heart failure type: unspecified Heart failure chronicity: acute Qualified Code(s): I50.9 - Heart failure, unspecified Attestations Medical Necessity Statement*: From a cardiovascular perspective patient can be discharged home Coding Level of Care Code New Pt Acute Systems Coordinator for [place] Fwd Patient Type New History Detailed Exam Detailed Medical Decision Making Moderate Complexity Diagnoses Atrial fibrillation status post cardioversion I48.91 Essential hypertension I10 CHF (congestive heart failure) I50.9 Heart failure type: unspecified Heart failure chronicity: acute
[2021-02-10 15:13] VITALS: BP 110/64; PULSE 89; RESP 17; TEMP 36.7; O2SAT 96
[2021-02-10 17:02] VITALS: BP 110/64; PULSE 89; RESP 17; TEMP 36.7; O2SAT 96
--- NOTE | 2021-02-23 15:06 | P.PCN_ITS ---
Procedure Note: Date of procedure: 02/08/21 Pre-procedure diagnosis: Atrial flutter Other Information: After carefully explaining risk benefit and alternative for the procedure. Propofol was administered by anesthesia. DENNIS was performed to rule out left atrial appendage clot. DENNIS ruled out intra cardiac thrombosis or clot. With the help of biphasic defibrillator 200 J of shock was delivered to the patient after confirming deep sedation. Patient converted into sinus rhythm. Patient recovered without any complication. Coding Level of Care Code Acute Engineering And Development Director for Richie Weber
== END 2021-02-10 16:45 | disposition home or self-care (01) | DRG 308 ==
LOC: ER 23:30 → ICU 02-07 06:19 → MEDSURG 02-09 13:28
PROVIDERS: Emergency Medicine; Internal Medicine Cardiovascular Disease; Student in an Organized Health Care Education/Training Program; Admitting Provider Internal Medicine; Emergency Provider Emergency Medicine; Visit Provider Student in an Organized Health Care Education/Training Program
PROC: B24BZZ4 Ultrasonography of Heart with Aorta, Transesophageal (ICD-10-PCS; CPT 93312; principal; 2021-02-08 16:00)
DX: I48.91 Unspecified atrial fibrillation (principal); I50.31 Acute diastolic (congestive) heart failure; Z68.42 Body mass index [BMI] 45.0-49.9, adult; I11.0 Hypertensive heart disease with heart failure; E86.0 Dehydration; I48.4 Atypical atrial flutter; E66.01 Morbid (severe) obesity due to excess calories; F41.9 Anxiety disorder, unspecified
CPT/HCPCS: 36415; 71045; 71275; 80053; 80061; 81001; 82977; 83036; 83540; 83550; 83605; 83735; 83880; 84443; 84484; 85025; 85378; 85610; 85730; 86705; 86706; 86709; 86803; 87040; 87340; 87806; 93005; 93312; 93320; 93325; 96365; 96367; 96372; 96375; 96376; 99291; J0282; J1160; J1200; J1650; J1940; J2060; J2704; J3490; J7030; J7040; J7060; Q9967

== ENCOUNTER → 2021-02-17 14:59 | Outpatient (BNVA) | payer SELFPAY | PROVIDERS: Visit Provider Nurse Practitioner Family | DX: I48.91 Unspecified atrial fibrillation (principal) | CPT/HCPCS: 80048 ==

== ENCOUNTER 2021-02-24 13:10 | Inpatient (IN) | payer SELFPAY ==
[2021-02-24] VITALS (9 sets, daily range): BP systolic 92–138; BP diastolic 64–98; PULSE 97–145; RESP 13–22; TEMP 36.7; O2SAT 96–99; BMI 27.3
--- NOTE | 2021-02-24 13:31 | XR_ITS ---
WS: [id number] Portable AP upright chest, 02/24/2021 Clinical Data: tachycardia Comparison: Portable chest, 02/06/2021. Findings: No nodules, masses or effusions are seen. The heart is enlarged. The pulmonary vascularity is not increased. No pneumonia or pneumothorax is seen. XR/XR chest 1V portable [id number] Impression: Cardiomegaly.
--- NOTE | 2021-02-24 13:31 | ECG_ITS ---
[facility] Test Date: 2021-02-24 Pat Name: Poonam Javier Department: Room: Gender: Female Stamp Redemption Clerk: : 1965 Requested By: Luba Matias Order Number: [id number] Carson MD: Tray Parr M.D. Measurements Intervals [place] Rate: 142 P: 46 VA: 137 QRS: 14 QRSD: 88 T: 39 QT: 328 QTc: 504 Interpretive Statements Atrial flutter with RVR NONSPECIFIC T-WAVE ABNORMALITY ABNORMAL RHYTHM ECG Compared to ECG 02/10/2021 14:07:42 Sinus rhythm no longer present Ventricular premature complex(es) no longer present T-wave abnormality still present Electronically Signed On 02-24-2021 19:25:29 CDT by Tray Parr M.D. [id number]
[2021-02-24 14:36] LABS: Basophils # 0.1 10^3/uL (0.0-0.1); Basophils % 0.7 %; Eosinophils # 0.1 10^3/uL (0.0-0.8); Eosinophils % 0.6 %; Hematocrit 47.7 % (37.0-47.0); Hemoglobin 14.7 g/dL (11.5-15.3); Lymphocytes # 1.9 10^3/uL (0.8-4.8); Lymphocytes % 18.4 %; Mean Corpuscular HGB Conc 30.8 g/dL (30.0-36.0); Mean Corpuscular Hemoglobin 28.3 pg (28.0-34.0); Mean Corpuscular Volume 91.9 fL (81-99); Monocytes # 0.7 10^3/uL (0.2-0.9); Monocytes % 6.3 %; Neutrophils # 7.61 10^3/uL (1.8-7.7); Neutrophils % 73.7 %; Nucleated Red Blood Cells % 0 %; Platelet Count 360 10^3/cmm (130-400); Red Blood Count 5.19 10^6/uL (4.1-5.3); Red Cell Distribution Width 12.7 % (12.1-15.1); White Blood Count 10.3 10^3/uL (4.0-10.0)
[2021-02-24 14:57] LABS: Troponin(5th) Baseline 16 ng/L (0-10)
[2021-02-24 15:05] LABS: Alanine Aminotransferase 61 U/L (0-33); Albumin Level 4.2 g/dL (3.5-5.2); Alkaline Phosphatase 110 IU/L (35-105); Blood Urea Nitrogen 22 mg/dL (6-20); Calcium 8.4 mg/dL (8.5-10.5); Carbon Dioxide 26 mmol/L (22-29); Chloride 99 mmol/L (98-107); Globulin 2.7 g/dL (1.3-4.6); Glomerular Filtration Rate 73.9 mL/min (90-130); Glucose 153 mg/dL (65-115); NT Pro B Type Natriuretic Pept 4622 pg/mL (0-125); Osmolality Calculated 288 mOsm/kg (285-295); Sodium 136 mmol/L (136-145); Total Bilirubin 0.6 mg/dL (0.15-1.2); Total Protein 6.9 g/dL (6.6-8.7)
[2021-02-24 15:10] LABS: Anion Gap 15.3 (5-19); Aspartate Amino Transferase 38 U/L (0-32); Potassium 4.3 mmol/L (3.5-5.1)
--- NOTE | 2021-02-24 15:27 | ED_ITS ---
HPI - Chest Pain General: Chief Complaint: Chest Pain Stated Complaint: HIGH HEART RATE Time Seen by Provider: 02/24/21 14:11 History of Present Illness: HPI narrative: 55-year-old female presents emergency room she has a history of intermittent atrial fibrillation recently decreased her amiodarone and now she is having intermittent episodes of rapid heart rate not feeling well. She sees her primary care doctor and they increased her amiodarone back to his previous dose but despite that overnight she continues to have intermittent episodes of rapid heart rate. Timing of current episode: episodic Prior episodes: Yes Onset: during rest Severity: mild Relieving factors: nothing Exacerbating factors: nothing Associated symptoms: Deny abdominal pain, diaphoresis, dyspnea, fever(s), leg edema, nausea, palpitations, sense of impending doom, syncope or vomiting Review of Systems Const: Denies: fever(s) or diaphoresis ENMT: Denies: throat pain, ear or mastoid pain, nasal discharge or nasal congestion Card: Denies: palpitations or syncope Resp: Denies: dyspnea GI: Denies: abdominal pain, nausea or vomiting : Denies: flank pain, difficulty voiding, dysuria, urinary frequency or urinary urgency Skin/Breast: Denies: rash or pruritus PFSH ED PFSH: Medical History Atrial fibrillation status post cardioversion Atrial flutter CHF (congestive heart failure) Essential hypertension Surgical History No pertinent past surgical history Family History Other CAD (coronary artery disease) Social History Smoking and tobacco status: never smoked Alcohol intake: never Physical Exam Const: COMMON NORMALS: no acute distress GENERAL APPEARANCE: cooperative and comfortable ORIENTATION/CONSCIOUSNESS: Yes awake, Yes oriented to person, Yes oriented to place and Yes oriented to time HENMT: COMMON NORMALS: normocephalic, atraumatic and hearing grossly normal bilaterally HEAD & SCALP: normocephalic and atraumatic Neck/C-Spine: COMMON NORMALS: no JVD Resp: COMMON NORMALS: normal respiratory effort, No retractions, No use of accessory muscles and clear to auscultation bilaterally AUSCULTATION: clear to auscultation bilaterally Cardio: COMMON NORMALS: no JVD, regular rhythm and No murmurs present (Cardio) RATE: tachycardic RHYTHM: regular rhythm GI: COMMON NORMALS: Soft to palpation and No hepatosplenomegaly present AUSCULTATION: Yes normoactive bowel sounds PALPATION: Yes Soft to palpation, No Tenderness to palpation present (GI), No Guarding due to palpation present (GI) and Yes No hepatosplenomegaly present Extremity: COMMON NORMALS: normal to inspection, capillary refill normal, no clubbing, cyanosis or edema, no calf tenderness and no pedal edema Neuro: SENSORIUM/ORIENTATION: Yes oriented to person, Yes oriented to place and Yes oriented to time Skin: COMMON NORMALS: no rashes or lesions noted GENERAL SKIN EXAM: no rashes or lesions noted Course Vital Signs: Vital signs: Vital Signs Temperature 98.1 F 02/26/21 07:15 Pulse Rate 90 02/26/21 07:15 Respiratory Rate 20 H 02/26/21 07:15 Blood Pressure 115/65 02/26/21 07:15 Pulse Oximetry 98 02/26/21 07:15 MDM - Chest Pain MDM Narrative: Medical decision making narrative: Patient has a few intermittent episodes of atrial fibrillation on the monitor. For the majority time she has identifiable P waves. On her twelve-lead's there is a lot of artifact and appears it may be a slow atrial flutter but the P waves do seem to be consistent with the QRSs the rate at most will get to 140 other times drops down to 10 5-1 20. Discussed with cardiology and the hospitalist will admit for further evaluation cardiology consultation she had difficult time with recent hospitalization with rate control as well. Discussed the EKGs with cardiology. Lab Data: Labs: Lab Results 02/24/21 02/24/21 02/24/21 Range/Units 14:20 14:20 14:20 WBC 10.3 H (4.0-10.0) 10^3/ uL RBC 5.19 (4.1-5.3) 10^6/u L Hgb 14.7 (11.5-15.3) g/dL Hct 47.7 H (37.0-47.0) % MCV 91.9 (81-99) fL MCH 28.3 (28.0-34.0) pg MCHC 30.8 (30.0-36.0) g/dL RDW 12.7 (12.1-15.1) % Plt Count 360 (130-400) 10^3/c mm MPV 11.0 H (7.4-10.4) fL Neut % (Auto) 73.7 % Lymph % (Auto) 18.4 % [place] % (Auto) 6.3 % Eos % (Auto) 0.6 % Baso % (Auto) 0.7 % Neut # (Auto) 7.61 (1.8-7.7) 10^3/u L Lymph # (Auto) 1.9 (0.8-4.8) 10^3/u L [place] # (Auto) 0.7 (0.2-0.9) 10^3/u L Eos # (Auto) 0.1 (0.0-0.8) 10^3/u L Baso # (Auto) 0.1 (0.0-0.1) 10^3/u L Nucleated RBC % (a uto) 0 % Nucleated RBCs # 0.0 /100WBC Sodium 136 (136-145) mmol/L Potassium 4.3 (3.5-5.1) mmol/L Chloride 99 (98-107) mmol/L Carbon Dioxide 26 (22-29) mmol/L Anion Gap 15.3 (5-19) BUN 22 H (6-20) mg/dL Creatinine 0.8 (0.5-0.9) mg/dL GFR Calculation 73.9 L (90-130) mL/min Glucose 153 H (65-115) mg/dL Calculated Osmolal ity 288 (285-295) mOsm/k g Calcium 8.4 L (8.5-10.5) mg/dL Total Bilirubin 0.6 (0.15-1.2) mg/dL AST 38 H (0-32) U/L ALT 61 H (0-33) U/L Alkaline Phosphata se 110 H (35-105) IU/L Troponin T Baselin e 16 H (0-10) ng/L Troponin T 120 Min [place] (0-10) ng/L Delta Troponin T (0-10) ABS# NT-Pro-B Natriuret Pep 4622 H (0-125) pg/mL Total Protein 6.9 (6.6-8.7) g/dL Albumin 4.2 (3.5-5.2) g/dL Globulin 2.7 (1.3-4.6) g/dL TSH (0.27-4.20) uIU/ mL 02/24/21 02/24/21 Range/Units 14:20 16:31 WBC (4.0-10.0) 10^3/ uL RBC (4.1-5.3) 10^6/u L Hgb (11.5-15.3) g/dL Hct (37.0-47.0) % MCV (81-99) fL MCH (28.0-34.0) pg MCHC (30.0-36.0) g/dL RDW (12.1-15.1) % Plt Count (130-400) 10^3/c mm MPV (7.4-10.4) fL Neut % (Auto) % Lymph % (Auto) % [place] % (Auto) % Eos % (Auto) % Baso % (Auto) % Neut # (Auto) (1.8-7.7) 10^3/u L Lymph # (Auto) (0.8-4.8) 10^3/u L [place] # (Auto) (0.2-0.9) 10^3/u L Eos # (Auto) (0.0-0.8) 10^3/u L Baso # (Auto) (0.0-0.1) 10^3/u L Nucleated RBC % (a uto) % Nucleated RBCs # /100WBC Sodium (136-145) mmol/L Potassium (3.5-5.1) mmol/L Chloride (98-107) mmol/L Carbon Dioxide (22-29) mmol/L Anion Gap (5-19) BUN (6-20) mg/dL Creatinine (0.5-0.9) mg/dL GFR Calculation (90-130) mL/min Glucose (65-115) mg/dL Calculated Osmolal ity (285-295) mOsm/k g Calcium (8.5-10.5) mg/dL Total Bilirubin (0.15-1.2) mg/dL AST (0-32) U/L ALT (0-33) U/L Alkaline Phosphata se (35-105) IU/L Troponin T Baselin e (0-10) ng/L Troponin T 120 Min [place] 15.67 H (0-10) ng/L Delta Troponin T -0.33 L (0-10) ABS# NT-Pro-B Natriuret Pep (0-125) pg/mL Total Protein (6.6-8.7) g/dL Albumin (3.5-5.2) g/dL Globulin (1.3-4.6) g/dL TSH 2.89 (0.27-4.20) uIU/ mL Discharge Plan Discharge Patient Disposition: Admitted As Inpatient Admit Provider: Lucia Soler Clinical Impression: Arrhythmia Condition: Stable Coding Level of Care Code ED Systems Test Engineer for Richie Weber
--- NOTE | 2021-02-24 15:31 | ECG_ITS ---
[facility] Test Date: 2021-02-24 Pat Name: Poonam Javier Department: Room: Gender: Female Animal Cytologist: : 1965 Requested By: Luba Matias Order Number: [id number] Carson MD: Tray Parr M.D. Measurements Intervals [place] Rate: 129 P: 56 CA: 194 QRS: 24 QRSD: 82 T: 64 QT: 357 QTc: 524 Interpretive Statements Atrial flutter with rapid ventricular rate NONSPECIFIC T-WAVE ABNORMALITY Compared to ECG 02/24/2021 13:37:19 No significant changes Electronically Signed On 02-24-2021 19:31:51 CDT by Tray Parr M.D. [id number]
--- NOTE | 2021-02-24 16:47 | CTR_ITS ---
PROCEDURE INFORMATION: Exam: CTA Chest With Contrast Exam date and time: 02/24/2021 5:00 PM Age: 55 years old Clinical indication: Shortness of breath; Patient HX: SOB on exertion, tachycardia; Additional info: Tachycardia, dyspnea TECHNIQUE: Imaging protocol: Computed tomographic angiography of the chest with contrast. 3D rendering (Not supervised by radiologist): MIP and/or 3D reconstructed images were created by the technologist. Radiation optimization: All CT scans at this facility use at least one of these dose optimization techniques: automated exposure control; mA and/or kV adjustment per patient size (includes targeted exams where dose is matched to clinical indication); or iterative reconstruction. Contrast material: OMNI 350; Contrast volume: 81 ml; Contrast route: INTRAVENOUS (IV); COMPARISON: CT angio chest PE protcl [id number] 02/07/2021 12:21 AM RADIATION DOSE METRICS: Total DLP (mGy-cm): 565.65 FINDINGS: Pulmonary arteries: No pulmonary embolus. Aorta: The aorta is not opacified. Lungs: Unremarkable. No consolidation. No masses. Pleural spaces: Unremarkable. No pneumothorax. No pleural effusion. Heart: Unremarkable. No cardiomegaly. No pericardial effusion. Lymph nodes: Calcified left hilar nodes and/or mediastinal nodes and/or lung granulomas consistent with old granulomatous disease. Bones/joints: Moderate thoracic spondylosis. Soft tissues: Unremarkable. CT/CT angio chest PE protcl [id number] IMPRESSION: No pulmonary embolus. Radiation Dose CTDIVOL = (mGy): DLP = 565.65 (mGy-cm)
[2021-02-24 17:07] LABS: Troponin 5 2HR 15.67 ng/L (0-10)
[2021-02-24 17:08] LABS: Troponin 5 2HR Delta -0.33 ABS# (0-10)
[2021-02-24 17:12] LABS: Thyroid Stimulating Hormone 2.89 uIU/mL (0.27-4.20)
[2021-02-24] MEDS: iohexol 350 mg/mL 100 mL Btl IV (17:23)
--- NOTE | 2021-02-24 21:21 | PM.HP ---
Providers/Chief Complaint Admitting Physician: Lucia Soler MD Chief Complaint: HIGH HEART RATE History of Present Illness Poonam Javier is a 55 year old female who was recently admitted 02/06-02/10 with A fib with RVR s/p cardioversion on 02/08 after she did not respond to amiodarone infusion. Doing well at discharge, in sinus rhythm, discharged with amiodarone 400mg po daily, metoprolol 25mg po BID, spirinolactone 25mg daily and lasix 40mg BID. Followed up on 02/17 with heart care, HR at the time between 58-90, amiodarone was reduced to 200mg po daily. By 02/20, she again developed tachycardia to HR 120-150, after which amiodarone to 400mg po daily. Metoprolol continued at same dose. On 02/22, she developed associated symptoms including palpitationss, fatigue, sweating, nausea. Denies chest pain, dyspnea, syncope. Has not gained any weight in the past week, no LE swelling. ROS negative for fever, cough. Review of Systems General: Reports: 10 or more systems reviewed and unremarkable except in HPI and below Const: Denies: fever(s), chills or body aches Eyes: Denies: change in vision, blurry vision or photophobia ENMT: Reports: hoarseness; Denies: throat pain, enlarged tonsils, odynophagia or nasal congestion Card: Denies: chest pain, palpitations, irregular heart rhythm, edema, swelling of feet/ankles, lightheadedness, pre-syncope, dyspnea on exertion or orthopnea Resp: Denies: dyspnea, productive cough, non-productive cough, wheezing, stridor, pain on inspiration, change in phlegm color, hemoptysis or chest congestion GI: Denies: abdominal pain, nausea, vomiting, hematemesis, coffee ground emesis, dysphagia, heartburn, diarrhea, constipation, GI cramping, change in stool character, hematochezia or melena : Denies: flank pain, difficulty voiding, dysuria, urinary frequency, urinary urgency, urinary hesitancy or hematuria Musc: Denies: neck pain, back pain, extremity pain, joint swelling, joint warmth or deformity Neuro: Denies: headache(s), numbness in extremities, weakness in extremities, sensory changes, difficulty walking, frequent falls, dizziness, vertigo, behavioral changes, Slurred speech present or seizure-like activity Psych: Denies: anxiety, depression, suicidal ideation or homicidal ideation Endo: Denies: polyuria, polydipsia, tired all the time, cold intolerance or hot flashes Ramone/Lymph: Denies: easy bruising or easy bleeding Medications/Allergies Home Medications Medication Instructions Recorded Confirmed Last Taken Type acetaminophen [Tylenol Extra 1,000 mg PO Q6H PRN 02/06/21 02/24/21 Unknown History Strength] furosemide 40 mg PO BID@08,16 #60 tab 02/10/21 02/24/21 02/24/21 Rx metoprolol tartrate 25 mg PO BID@0900,2100 #60 tab 02/10/21 02/24/21 02/24/21 Rx potassium chloride [Klor-Con M20] 20 meq PO BID #60 tab 02/10/21 02/24/21 02/24/21 Rx amiodarone 200 mg tablet 200 mg PO BID@08,16 tab 02/21/21 02/24/21 02/24/21 History Zoloft 25 mg PO DAILY@0800 02/24/21 02/24/21 02/24/21 History aspirin 325 - 650 mg PO DAILY MDD SEE 02/24/21 02/24/21 02/24/21 History PHARMACY COMMENT rivaroxaban 20 mg PO DAILY@1800 02/24/21 02/24/21 02/23/21 History spironolactone [Aldactone] 25 mg PO DAILY@0800 02/24/21 02/24/21 02/24/21 History Allergies Allergy/AdvReac Type Severity Reaction Status Date / Time amoxicillin Allergy ADR-Itching Verified 02/24/21 13:43 Penicillins Allergy ALGY-Rash Verified 02/24/21 13:43 PFSH Acute PFSH: Medical History Atrial fibrillation status post cardioversion Atrial flutter CHF (congestive heart failure) Essential hypertension Surgical History No pertinent past surgical history Family History Other CAD (coronary artery disease) Social History Smoking and tobacco status: never smoked Alcohol intake: never Vitals/I&O/Wt Last Vital Signs Temp 98.0 F 02/24/21 13:38 Pulse 145 H 02/24/21 21:04 Resp 20 H 02/24/21 21:04 BP 123/98 02/24/21 21:04 Pulse Ox 98 02/24/21 18:37 Weight last 48 hrs Weight 65.589 kg Physical Exam Narrative: EXAM NARRATIVE: General: No acute distress, AO x3 HEENT: PERRLA, pupils bilaterally equal and reactive, pallors not present Chest: Normal vesicular breath sounds, no added sounds, equal good air entry bilaterally CVS: S1-S2 regular, no murmurs, no tachycardia, no gallops, no rubs Abdomen: Soft, nontender, no organomegaly, bowel sounds present Neuro: No focal deficits, no facial deformity, AO x3, power 5/5 in all limbs Extremities: no LE swelling, clubbing or cyanosis Data : 02/24/21 14:20 02/24/21 14:20 A&P Assessment and plan (1) Atrial fibrillation with RVR: s/p recent cardioversion on 02/08 Currently on amiodarone 400mg po daily, metoprolol 25mg BID as outpatient. Amiodarone dose increased from 200 to 400mg daily on 02/20/21 Plan: Start amiodarone infusion for rate/rhythm control Continue metoprolol 25mg po BID, starting now BP upon admission at 98 systolic, at time of evaluation at 126/[address]-T wave changes on EKG, troponin series without significant delta Above plan discussed with Dr. Parr , cardiology consult Status: Acute (2) CHF (congestive heart failure): Currently clinically euvolemic No LE edema or crackles on exam Continue lasix at home dose of 40mg po BID Monitor urine output and daily weight Status: Acute Qualifiers: Heart failure type: unspecified Heart failure chronicity: acute Qualified Code(s): I50.9 - Heart failure, unspecified (3) Essential hypertension: Currently BP is well controlled Status: Acute (4) Transaminitis: Persisting but improved over 02/03/20, Hepatitis screen negative at the time Appears to pre date starting amiodarone Status: Acute Additional A&P Information DVT ppx: On Xarelto Full code Attestations Medical Necessity Statement*: Anticipate >2midnight for management of recurrent A fib with RVR currently needing amiodarone infusion, evaluation for cardioversion Coding Level of Care Code Acute Dimensional Integration Engineer for [place] Fwd Diagnoses Atrial fibrillation with RVR I48.91 CHF (congestive heart failure) I50.9 Heart failure type: unspecified Heart failure chronicity: acute Essential hypertension I10 Transaminitis R74.01
[2021-02-24] MEDS: metoprolol tartrate 25 mg Tablet PO (22:20)
[2021-02-25] VITALS (9 sets, daily range): BP systolic 103–121; BP diastolic 65–86; PULSE 86–142; RESP 14–24; TEMP 36.4–36.8; O2SAT 94–98
--- NOTE | 2021-02-25 05:38 | PC.NURSE ---
Patient not saving urine overnight. Patient reports voiding 4 times.
[2021-02-25 05:41] LABS: Basophils # 0.1 10^3/uL (0.0-0.1); Basophils % 0.6 %; Eosinophils # 0.1 10^3/uL (0.0-0.8); Eosinophils % 1.7 %; Hematocrit 42.3 % (37.0-47.0); Hemoglobin 13.4 g/dL (11.5-15.3); Mean Corpuscular HGB Conc 31.7 g/dL (30.0-36.0); Mean Corpuscular Hemoglobin 28.3 pg (28.0-34.0); Mean Corpuscular Volume 89.4 fL (81-99); Mean Platelet Volume 11.3 fL (7.4-10.4); Monocytes # 0.6 10^3/uL (0.2-0.9); Monocytes % 7.6 %; Neutrophils # 6.31 10^3/uL (1.8-7.7); Neutrophils % 77.6 %; Nucleated Red Blood Cells % 0 %; Platelet Count 254 10^3/cmm (130-400); Red Blood Count 4.73 10^6/uL (4.1-5.3); Red Cell Distribution Width 12.6 % (12.1-15.1); White Blood Count 8.1 10^3/uL (4.0-10.0)
[2021-02-25 06:24] LABS: Alanine Aminotransferase 50 U/L (0-33); Albumin Level 3.6 g/dL (3.5-5.2); Alkaline Phosphatase 97 IU/L (35-105); Anion Gap 13.9 (5-19); Aspartate Amino Transferase 27 U/L (0-32); Blood Urea Nitrogen 20 mg/dL (6-20); Calcium 8.2 mg/dL (8.5-10.5); Carbon Dioxide 26 mmol/L (22-29); Chloride 99 mmol/L (98-107); Globulin 2.5 g/dL (1.3-4.6); Glomerular Filtration Rate 86.2 mL/min (90-130); Glucose 136 mg/dL (65-115); Osmolality Calculated 287 mOsm/kg (285-295); Sodium 136 mmol/L (136-145); Total Bilirubin 0.6 mg/dL (0.15-1.2); Total Protein 6.1 g/dL (6.6-8.7)
[2021-02-25 06:45] LABS: Potassium 2.9 mmol/L (3.5-5.1)
--- NOTE | 2021-02-25 07:37 | PM.CONSULT ---
Providers/Reason For Consult Consulting Physican/Specialty*: Tray Parr MD/ Cardiology Reason for Consult*: Afib with RVR Requesting Tonyan: Dr Zaman Attending Physician: Lucia Soler MD History of Present Illness History of Present Illness 55 year old female with PMH of htn and a recent admission for A fib with RVR s/p cardioversion on 02/08.She was discharged in sinus rhythm on amiodarone 400mg po daily, metoprolol 25mg po BID.Her amiodarone was reduced to 200mg BID. She came last night with symptoms of fatigue, palpitations, nausea and sweating. She was found to be in afib with RVR again. Review of Systems General: Reports: 10 or more systems reviewed and unremarkable except in HPI and below Const: Denies: fever(s), chills or body aches Eyes: Denies: change in vision, blurry vision or photophobia ENMT: Reports: hoarseness; Denies: throat pain, enlarged tonsils, odynophagia or nasal congestion Card: Denies: chest pain, palpitations, irregular heart rhythm, edema, swelling of feet/ankles, lightheadedness, pre-syncope, dyspnea on exertion or orthopnea Resp: Denies: dyspnea, productive cough, non-productive cough, wheezing, stridor, pain on inspiration, change in phlegm color, hemoptysis or chest congestion GI: Denies: abdominal pain, nausea, vomiting, hematemesis, coffee ground emesis, dysphagia, heartburn, diarrhea, constipation, GI cramping, change in stool character, hematochezia or melena : Denies: flank pain, difficulty voiding, dysuria, urinary frequency, urinary urgency, urinary hesitancy or hematuria Musc: Denies: neck pain, back pain, extremity pain, joint swelling, joint warmth or deformity Neuro: Denies: headache(s), numbness in extremities, weakness in extremities, sensory changes, difficulty walking, frequent falls, dizziness, vertigo, behavioral changes, Slurred speech present or seizure-like activity Psych: Denies: anxiety, depression, suicidal ideation or homicidal ideation Endo: Denies: polyuria, polydipsia, tired all the time, cold intolerance or hot flashes Ramone/Lymph: Denies: easy bruising or easy bleeding Meds/Allergies Home Medications and Allergies Home Medications Medication Instructions Recorded Confirmed Last Taken Type acetaminophen [Tylenol Extra 1,000 mg PO Q6H PRN 02/06/21 02/24/21 Unknown History Strength] furosemide 40 mg PO BID@08,16 #60 tab 02/10/21 02/24/21 02/24/21 Rx metoprolol tartrate 25 mg PO BID@0900,2100 #60 tab 02/10/21 02/24/21 02/24/21 Rx potassium chloride [Klor-Con M20] 20 meq PO BID #60 tab 02/10/21 02/24/21 02/24/21 Rx amiodarone 200 mg tablet 200 mg PO BID@08,16 tab 02/21/21 02/24/21 02/24/21 History Zoloft 25 mg PO DAILY@0800 02/24/21 02/24/21 02/24/21 History aspirin 325 - 650 mg PO DAILY MDD SEE 02/24/21 02/24/21 02/24/21 History PHARMACY COMMENT rivaroxaban 20 mg PO DAILY@1800 02/24/21 02/24/21 02/23/21 History spironolactone [Aldactone] 25 mg PO DAILY@0800 02/24/21 02/24/21 02/24/21 History Allergies Allergy/AdvReac Type Severity Reaction Status Date / Time amoxicillin Allergy ADR-Itching Verified 02/24/21 13:43 Penicillins Allergy ALGY-Rash Verified 02/24/21 13:43 Current Medications Current Medications Generic Name Dose Route Start Last Admin Trade Name Freq PRN Reason Stop Dose Admin Amiodarone HCl 900 mg/ 518 mls @ 0 mls/hr 02/24/21 22:15 02/25/21 05:00 Dextrose/ IV Miscellaneous IV 0.5 mg/min Supplies .Q0M MALLORY 17.3 mls/hr Titration Protocol Per Protocol Metoprolol Tartrate 25 mg 02/24/21 22:15 02/24/21 22:20 Metoprolol Tartrate 25 Mg Tablet PO 25 mg BID@0900,2100 MALLORY Administration PFSH Acute PFSH: Medical History Atrial fibrillation status post cardioversion Atrial flutter CHF (congestive heart failure) Essential hypertension Surgical History No pertinent past surgical history Family History Other CAD (coronary artery disease) Social History Smoking and tobacco status: never smoked Alcohol intake: never Vitals/I&O/Wt Last Vital Signs Temp 97.9 F 02/25/21 03:54 Pulse 117 H 02/25/21 05:36 Resp 22 H 02/25/21 03:54 BP 112/83 02/25/21 03:54 Pulse Ox 98 02/25/21 03:54 02/24/21 02/25/21 02/25/21 22:59 06:59 14:59 Intake Total 300 / 300 205.275 / 505.275 Output Total / Balance 299 / 299 205.275 / 504.275 Weight last 48 hrs Weight 258 lb 8 oz Weight 144 lb 9.6 oz Physical Exam Const: COMMON NORMALS: patient oriented x3 HENMT: COMMON NORMALS: normocephalic and atraumatic HEAD & SCALP: normocephalic and atraumatic Resp: COMMON NORMALS: clear to auscultation bilaterally EFFORT & INSPECTION: Yes symmetric chest movement AUSCULTATION: clear to auscultation bilaterally Cardio: COMMON NORMALS: No murmurs present (Cardio), No rub (Cardio) and Peripheral pulses 2+ throughout PERIPHERAL PULSES: Peripheral pulses 2+ throughout OTHER: Irregularly irregular rhythm GI: COMMON NORMALS: Normal to inspection, nondistended, normoactive bowel sounds present, Soft to palpation, non-tender, No hepatosplenomegaly present and no masses AUSCULTATION: Yes normoactive bowel sounds PALPATION: Yes Soft to palpation and Yes No hepatosplenomegaly present RECTAL EXAM: deferred Extremity: COMMON NORMALS: no clubbing, cyanosis or edema and no pedal edema Neuro: COMMON NORMALS: patient oriented x3 A&P Assessment and plan (1) Atrial fibrillation with RVR: Status: Acute (2) CHF (congestive heart failure): Status: Acute Qualifiers: Heart failure type: unspecified Heart failure chronicity: acute Qualified Code(s): I50.9 - Heart failure, unspecified (3) Essential hypertension: Status: Acute Patient has developed afib with RVR again. Continue amio gtt and uptitrate metoprolol as blood pressure allows. She had low BP earlier. Will recommend loading with digoxin (IV 500mcg, followed by 250mcg q 6 x2) and starting daily dose of 250mcg PO thereafter Continue anticoagulation As she has been on amiodarone for a few weeks now, if heart rates are not controlled with these measures, chances of keeping her in sinus rhyhtm will be higher with electrical cardioversion. Continue diuresis Thank you for involving us with care of this patient. We will continue to follow. Please call with questions Coding Level of Care Code Acute Supervisor [employer] for [employer]ie [employer] Diagnoses Atrial fibrillation with RVR I48.91 CHF (congestive heart failure) I50.9 Heart failure type: unspecified Heart failure chronicity: acute Essential hypertension I10
[2021-02-25] MEDS: sertraline 50 mg Tablet 25 MG PO (07:56)
[2021-02-25] MEDS: FUROsemide 40 mg Tablet PO ×2 (07:57→15:19)
[2021-02-25] MEDS: metoprolol tartrate 25 mg Tablet PO (07:57)
[2021-02-25] MEDS: spironolactone 25 mg Tablet PO (07:57)
[2021-02-25] MEDS: potassium chloride ER 20 mEq Tablet 40 MEQ PO (09:50)
[2021-02-25] MEDS: lidocaine 1% 5 ML in potassium chloride premix 100 ML 25 ML IV (09:54)
--- NOTE | 2021-02-25 12:07 | PC.CHAP ---
Pastoral Care Encounter/Spiritual Assessment Type of Contact [] Declined labor relations manager visit [] Patient/Family/Request visit [] Outpatient visit [] Follow-up visit [] Physician referral [] Code/Alert [xx] Routine visit [] Staff referral [] Actively dying [] Patient sleeping [] Family support [] [] Out of room [] Palliative care [] [] Receiving care in room [] Pre-surgical visit [] Trauma [] Long length of stay [] ICU visit [] Other: Relational/Emotional Strength [xx] Patient feels connected with others/family/visitors/staff [] Distress [] Loneliness/isolation [] Abandonment Spirituality of Patient [xx] Person of Lily [xx] Attends Shinto of their Lily [xx] Believes in Prayer [xx] Reads Bible or Church materials [] There are Spiritual issues to be addressed Charge Master Specialist Interventions [xx] Prayer [xx] Active listening [xx] Non-anxious presence [] Spiritual/emotional support [] Crisis/trauma care [] Spiritual counseling [] Bereavement support [] Provided bereavement packet [] Provided Bible/devotional materials [] Provided toy/stuffed animal, coloring book to patient or family member [] Provided Communion [] Anointing/[place] [] Salvation [xx] Completed spiritual assessment [] Other: Impact on Illness or Injury [] Angry [] Fearful [] Anxious [] Often cries [xx] Exhaustion [] Unable to work [] Unable to attend mandaeism [] Unable to walk/stand [] Unable to read [] Unable to drive [] Unable to eat/drink [xx] Unable to sleep [] Unable to be with family [] Patient intubated [] Other: Summary Return visit for patient. She was in for something similar last month. She has had very little sleep and is exhausted. She wanted only prayer that she can sleep and recover. Time spent with patient 4 minutes
--- NOTE | 2021-02-25 14:33 | P.PN_ITS ---
Vitals/I&O/Wt Last Vital Signs Temp 97.6 F 02/25/21 11:02 Pulse 132 H 02/25/21 11:02 Resp 14 02/25/21 11:02 BP 110/82 02/25/21 11:02 Pulse Ox 98 02/25/21 11:02 02/24/21 02/25/21 02/25/21 22:59 06:59 14:59 Intake Total 300 / 300 205.275 / 505.275 600 / 600 Output Total Balance 299 / 299 205.275 / 504.275 600 / 600 Weight last 48 hrs Weight 117.254 kg Weight 65.589 kg Physical Exam Const: COMMON NORMALS: patient oriented x3 HENMT: COMMON NORMALS: normocephalic and atraumatic HEAD & SCALP: normocephalic and atraumatic Resp: COMMON NORMALS: clear to auscultation bilaterally EFFORT & INSPECTI ON: Yes symmetric chest movement AUSCULTATION: clear to auscultation bilaterally Cardio: COMMON NORMALS: No murmurs present (Cardio), No rub (Cardio) and Peripheral pulses 2+ throughout PERIPHERAL PULSES: Peripheral pulses 2+ throughout OTHER: Irregularly irregular rhythm, S1-S2 of variable intensity GI: COMMON NORMALS: Normal to inspection, nondistended, normoactive bowel sounds present, Soft to palpation, non-tender, No hepatosplenomegaly present and no masses AUSCULTATION: Yes normoactive bowel sounds PALPATION: Yes Soft to palpation and Yes No hepatosplenomegaly present RECTAL EXAM: deferred Extremity: COMMON NORMALS: no clubbing, cyanosis or edema and no pedal edema Neuro: COMMON NORMALS: patient oriented x3 Data : 02/25/21 04:30 02/25/21 04:30 A&P Assessment and plan (1) Atrial fibrillation with RVR: s/p recent cardioversion on 02/08 Currently on amiodarone 400mg po daily, metoprolol 25mg BID as outpatient. Amiodarone dose increased from 200 to 400mg daily on 02/20/21 Plan: On amiodarone infusion for rate/rhythm control metoprolol 50 mg po BID Digoxin 500 mcg IV x1 dose BP upon admission at 98 systolic, at time of evaluation at 126/[address]-T wave changes on EKG, troponin series without significant delta Appreciate cardiology consult Status: Acute (2) CHF (congestive heart failure): Currently compensated Lasix 40 IV twice daily Oral potassium: 40 meq po daily Daily weight Intake output charting k>4, Mg>2 Status: Acute Qualifiers: Heart failure type: unspecified Heart failure chronicity: acute Qualified Code(s): I50.9 - Heart failure, unspecified (3) Essential hypertension: Currently BP is well controlled Status: Acute (4) Transaminitis: Persisting but improved over 02/03/20, Hepatitis screen negative at the time Appears to pre date starting amiodarone Status: Acute (5) Hypokalemia: Monitor and replace Status: Acute Additional A&P Information DVT ppx: On Xarelto Full code Attestations Medical Necessity Statement*: Patient needs to be in hospital for management of A. fib with RVR Coding Level of Care Code Acute Administration Vice President for Chg Fwd Diagnoses Atrial fibrillation with RVR I48.91 CHF (congestive heart failure) I50.9 Heart failure type: unspecified Heart failure chronicity: acute Essential hypertension I10 Transaminitis R74.01 Hypokalemia E87.6
[2021-02-25] MEDS: zolpidem 5 mg Tablet PO (15:20)
[2021-02-25] MEDS: digoxin 250 mcg/ml INJ 2 mL 500 MCG IVP (17:09)
[2021-02-25] MEDS: FUROsemide 10 mg/mL SDV 4mL 40 MG IVP (17:10)
[2021-02-25] MEDS: rivaroxaban 10 mg Tablet 20 MG PO (17:11)
[2021-02-25] MEDS: metoprolol tartrate 50 mg Tablet PO (19:59)
[2021-02-25 22:04] LABS: Potassium 3.9 mmol/L (3.5-5.1)
[2021-02-25] MEDS: digoxin 250 mcg/ml INJ 2 mL IVP (23:18)
[2021-02-26] VITALS (9 sets, daily range): BP systolic 96–132; BP diastolic 63–92; PULSE 75–122; RESP 15–22; TEMP 36.4–36.8; O2SAT 92–98
[2021-02-26] MEDS: digoxin 250 mcg/ml INJ 2 mL IVP ×2 (05:46→15:35)
[2021-02-26] MEDS: FUROsemide 10 mg/mL SDV 4mL 40 MG IVP ×2 (05:56→17:22)
[2021-02-26 08:52] LABS: Basophils # 0.1 10^3/uL (0.0-0.1); Basophils % 0.6 %; Eosinophils # 0.2 10^3/uL (0.0-0.8); Eosinophils % 2.7 %; Hematocrit 48.8 % (37.0-47.0); Hemoglobin 15.1 g/dL (11.5-15.3); Lymphocytes # 1.1 10^3/uL (0.8-4.8); Lymphocytes % 12.9 %; Mean Corpuscular HGB Conc 30.9 g/dL (30.0-36.0); Mean Corpuscular Hemoglobin 28.1 pg (28.0-34.0); Mean Corpuscular Volume 90.9 fL (81-99); Mean Platelet Volume 11.6 fL (7.4-10.4); Monocytes # 0.7 10^3/uL (0.2-0.9); Monocytes % 7.8 %; Neutrophils # 6.56 10^3/uL (1.8-7.7); Neutrophils % 75.7 %; Nucleated Red Blood Cells % 0 %; Platelet Count 289 10^3/cmm (130-400); Red Blood Count 5.37 10^6/uL (4.1-5.3); Red Cell Distribution Width 12.6 % (12.1-15.1); White Blood Count 8.7 10^3/uL (4.0-10.0)
[2021-02-26] MEDS: metoprolol tartrate 50 mg Tablet PO ×2 (08:55→20:01)
[2021-02-26] MEDS: potassium chloride ER 20 mEq Tablet 40 MEQ PO (08:55)
[2021-02-26] MEDS: sertraline 50 mg Tablet 25 MG PO (08:56)
[2021-02-26] MEDS: spironolactone 25 mg Tablet PO (08:56)
--- NOTE | 2021-02-26 09:11 | PC.NURSE ---
pt wants bath tonight
[2021-02-26 09:36] LABS: Anion Gap 19.7 (5-19); Blood Urea Nitrogen 16 mg/dL (6-20); Calcium 8.2 mg/dL (8.5-10.5); Carbon Dioxide 26 mmol/L (22-29); Chloride 97 mmol/L (98-107); Glomerular Filtration Rate 64.5 mL/min (90-130); Glucose 212 mg/dL (65-115); Magnesium 1.9 mg/dL (1.7-2.3); Osmolality Calculated 295 mOsm/kg (285-295); Potassium 3.7 mmol/L (3.5-5.1); Sodium 139 mmol/L (136-145)
--- NOTE | 2021-02-26 09:45 | PC.NURSE ---
Dr Obrien on unit for assessment and POC patient remains in Aflutter with a rate 78-103 at this time currently on Amio GTT at 0.5mg/Kg/hr verbal orders recived and read back 125 mcg Digoxin starting 1800 this evening and amio 200 mg Bid starting now stop GTT 2 hours after PO meds given
[2021-02-26] MEDS: amiodarone 200 mg Tablet PO ×2 (10:29→17:21)
--- NOTE | 2021-02-26 13:20 | P.PN_ITS ---
Subjective Subjective: Interval history: Patient was seen and examined.Currently in a flutter but rate controlled,heart rate in 80s.Denies any chest pain , shortness of breath, nausea vomiting headache confusion. Continues to make good urine output with Lasix. Medications: Reviewed: Yes Medication Review Details: Laboratory Last Values Current Medications Acetaminophen (Acetaminophen 325 Mg Tablet) 650 mg PO Q6H PRN PRN Reason: Mild/Mod Pain Or Temp >/= 101 Amiodarone HCl (Amiodarone 200 Mg Tablet) 200 mg PO BID [facility] Last Admin: 02/26/21 10:29 Dose: 200 mg Documented by: Digoxin (Digoxin 125 Mcg Tablet) 125 mcg PO 1800 [facility] Furosemide (Furosemide 10 Mg/Ml Sdv 4ml) 40 mg IVP Q12H [facility] Last Admin: 02/26/21 05:56 Dose: 40 mg Documented by: Amiodarone HCl 900 mg/Dextrose/ IV Miscellaneous Supplies 518 mls @ 0 mls/hr IV .Q0M [facility], [facility]; Protocol Last Admin: 02/25/21 19:54 Dose: 0.5 mg/min, 17.3 mls/hr Documented by: Metoprolol Tartrate (Metoprolol Tartrate 50 Mg Tablet) 50 mg PO BID@0900,2100 [facility] Last Admin: 02/26/21 08:55 Dose: 50 mg Documented by: Ondansetron HCl (Ondansetron 2 Mg/Ml Sdv 2 Ml) 4 mg IVP Q6H PRN PRN Reason: NAUSEA AND VOMITING Potassium Chloride (Potassium Chloride Er 20 Meq Tablet) 40 meq PO DAILY [facility] Last Admin: 02/26/21 08:55 Dose: 40 meq Documented by: Rivaroxaban (Rivaroxaban 10 Mg Tablet) 20 mg PO DAILY@1800 [facility] Last Admin: 02/25/21 17:11 Dose: 20 mg Documented by: Sertraline HCl (Sertraline 50 Mg Tablet) 25 mg PO DAILY@0800 [facility] Last Admin: 02/26/21 08:56 Dose: 25 mg Documented by: Spironolactone (Spironolactone 25 Mg Tablet) 25 mg PO DAILY@0800 [facility] Last Admin: 02/26/21 08:56 Dose: 25 mg Documented by: Zolpidem Tartrate (Zolpidem 5 Mg Tablet) 5 mg PO BEDTIME PRN PRN Reason: ANXIETY Last Admin: 02/25/21 15:20 Dose: 5 mg Documented by: Vitals/I&O/Wt Last Vital Signs Temp 97.5 F L 02/26/21 10:48 Pulse 99 02/26/21 10:48 Resp 18 02/26/21 10:48 BP 108/63 02/26/21 10:48 Pulse Ox 97 02/26/21 10:48 02/25/21 02/26/21 02/26/21 22:59 06:59 14:59 Intake Total 257.77 / 1520.27 125 / 1645.27 480 / 480 Output Total 1000 / 1700 1000 / 2700 Balance -742.23 / -179.73 -875 / -1054.73 480 / 480 Weight last 48 hrs Weight 114.759 kg Weight 117.254 kg Weight 65.589 kg Physical Exam Const: COMMON NORMALS: patient oriented x3 HENMT: COMMON NORMALS: normocephalic and atraumatic HEAD & SCALP: normocephalic and atraumatic Resp: COMMON NORMALS: clear to auscultation bilaterally EFFORT & INSPECTION: Yes symmetric chest movement AUSCULTATION: clear to auscultation bilaterally Cardio: COMMON NORMALS: No murmurs present (Cardio), No rub (Cardio) and Peripheral pulses 2+ throughout PERIPHERAL PULSES: Peripheral pulses 2+ throughout OTHER: Irregularly irregular rhythm, S1-S2 of variable intensity GI: COMMON NORMALS: Normal to inspection, nondistended, normoactive bowel sounds present, Soft to palpation, non-tender, No hepatosplenomegaly present and no masses AUSCULTATION: Yes normoactive bowel sounds PALPATION: Yes Soft to palpation and Yes No hepatosplenomegaly present RECTAL EXAM: deferred Extremity: COMMON NORMALS: no clubbing, cyanosis or edema and no pedal edema Neuro: COMMON NORMALS: patient oriented x3 Data : 02/26/21 08:09 02/26/21 08:09 A&P Assessment and plan (1) Atrial fibrillation with RVR: s/p recent cardioversion on 02/08 Currently on amiodarone 400mg po daily, metoprolol 25mg BID as outpatient. Amiodarone dose increased from 200 to 400mg daily on 02/20/21 Plan: Initially she was on amiodarone infusion. Amiodarone drip has been switched off, she has been started on amiodarone p.o. 200 mg twice daily. metoprolol dose has been increased to 50 mg po BID She has received loading dose of digoxin 500 mcg IV. Followed by 250 mcg IV x3. We will switch her to to 250 mcg digoxin p.o. daily from 02/27. No acute ST-T wave changes on EKG, troponin series without significant delta Appreciate cardiology consult Status: Acute (2) CHF (congestive heart failure): Currently compensated Lasix 40 IV twice daily Oral potassium: 40 meq po daily Daily weight Intake output charting k>4, Mg>2 Status: Acute Qualifiers: Heart failure type: unspecified Heart failure chronicity: acute Qualified Code(s): I50.9 - Heart failure, unspecified (3) Essential hypertension: Currently BP is well controlled Status: Acute (4) Transaminitis: Persisting but improved over 02/03/20, Hepatitis screen negative at the time Appears to pre date starting amiodarone Status: Acute (5) Hypokalemia: Monitor and replace Status: Acute Additional A&P Information DVT ppx: On Xarelto Full code Attestations Medical Necessity Statement*: Patient needs to be in hospital for management of A. fib/flutter with RVR. Coding Level of Care Code Acute Insect Control Aide for [facility] Fwd Diagnoses Atrial fibrillation with RVR I48.91 CHF (congestive heart failure) I50.9 Heart failure type: unspecified Heart failure chronicity: acute Essential hypertension I10 Transaminitis R74.01 Hypokalemia E87.6
--- NOTE | 2021-02-26 13:22 | P.PN_ITS ---
Subjective Subjective: Interval history: Patient was started on digoxin yesterday. Her heart rate seems to be getting under control. Telemetry still shows atrial flutter but with a controlled medical response rate of around 70 to 80/min. Her blood pressure is stable. She denies any chest pain or chest tightness. No unusual shortness of breath. No dizziness. No other specific complaints. Still has some amount of weakness and sweating. Medications: Reviewed: Yes Medication Review Details: Laboratory Last Values Current Medications Acetaminophen (Acetaminophen 325 Mg Tablet) 650 mg PO Q6H PRN PRN Reason: Mild/Mod Pain Or Temp >/= 101 Amiodarone HCl (Amiodarone 200 Mg Tablet) 200 mg PO BID [facility] Last Admin: 02/26/21 10:29 Dose: 200 mg Documented by: Digoxin (Digoxin 125 Mcg Tablet) 125 mcg PO 1800 [facility] Furosemide (Furosemide 10 Mg/Ml Sdv 4ml) 40 mg IVP Q12H [facility] Last Admin: 02/26/21 05:56 Dose: 40 mg Documented by: Amiodarone HCl 900 mg/Dextrose/ IV Miscellaneous Supplies 518 mls @ 0 mls/hr IV .Q0M [facility]; Protocol Last Admin: 02/25/21 19:54 Dose: 0.5 mg/min, 17.3 mls/hr Documented by: Metoprolol Tartrate (Metoprolol Tartrate 50 Mg Tablet) 50 mg PO BID@0900,2100 [facility] Last Admin: 02/26/21 08:55 Dose: 50 mg Documented by: Ondansetron HCl (Ondansetron 2 Mg/Ml Sdv 2 Ml) 4 mg IVP Q6H PRN PRN Reason: NAUSEA AND VOMITING Potassium Chloride (Potassium Chloride Er 20 Meq Tablet) 40 meq PO DAILY [facility] Last Admin: 02/26/21 08:55 Dose: 40 meq Documented by: Rivaroxaban (Rivaroxaban 10 Mg Tablet) 20 mg PO DAILY@1800 [facility] Last Admin: 02/25/21 17:11 Dose: 20 mg Documented by: Sertraline HCl (Sertraline 50 Mg Tablet) 25 mg PO DAILY@0800 [facility] Last Admin: 02/26/21 08:56 Dose: 25 mg Documented by: Spironolactone (Spironolactone 25 Mg Tablet) 25 mg PO DAILY@0800 [facility] Last Admin: 02/26/21 08:56 Dose: 25 mg Documented by: Zolpidem Tartrate (Zolpidem 5 Mg Tablet) 5 mg PO BEDTIME PRN PRN Reason: ANXIETY Last Admin: 02/25/21 15:20 Dose: 5 mg Documented by: Vitals/I&O/Wt Last Vital Signs Temp 97.5 F L 02/26/21 10:48 Pulse 99 02/26/21 10:48 Resp 18 02/26/21 10:48 BP 108/63 02/26/21 10:48 Pulse Ox 97 02/26/21 10:48 02/25/21 02/26/21 02/26/21 22:59 06:59 14:59 Intake Total 257.77 / 1520.27 125 / 1645.27 480 / 480 Output Total 1000 / 1700 1000 / 2700 Balance -742.23 / -179.73 -875 / -1054.73 480 / 480 Weight last 48 hrs Weight 253 lb Weight 258 lb 8 oz Weight 144 lb 9.6 oz Physical Exam Narrative: EXAM NARRATIVE: GENERAL: The patient is alert and oriented times three. Not in any acute distress. Morbidly obese HEENT: No significant pallor, icterus or lymphadenopathy.Oral cavity: There are no mucous membrane lesions. NECK: Trachea appears to be central. No masses noted. No JVD or thyromegaly appr eciated. RESPIRATORY: Chest is symmetrical. No intercostals muscle retraction or any accessory muscle activation. There is no chest wall tenderness. Breath sounds are heard bilaterally. No rales or rhonchi heard. No evidence of any consolidation. BREASTS: Deferred. HEART: The heart sounds are normal. No S3 or S4. No significant murmurs. No pericardial rub ABDOMEN: Obese no vessel pulsations or distention. No tenderness. No organomegaly appreciated. Bowel sounds are normally heard. : Deferred. RECTAL: Deferred. LYMPHATIC: No lymphadenopathy noted in the neck. EXTREMITIES: No edema or cyanosis. No clubbing. MUSCULOSKELETAL: No acute joint deformities or swelling SKIN: There are no significant rashes or ecchymosis NEUROPSYCHIATRIC: The patient is alert and oriented x3. Appears to be in a good mood. No tremors or rigidity noted. Data : 02/26/21 08:09 02/26/21 08:09 Other Labs: Laboratory Last Values WBC 8.7 10^3/uL (4.0-10.0) 02/26/21 08:09 RBC 5.37 10^6/uL (4.1-5.3) H 02/26/21 08:09 Hgb 15.1 g/dL (11.5-15.3) 02/26/21 08:09 Hct 48.8 % (37.0-47.0) H 02/26/21 08:09 MCV 90.9 fL (81-99) 02/26/21 08:09 MCH 28.1 pg (28.0-34.0) 02/26/21 08:09 MCHC 30.9 g/dL (30.0-36.0) 02/26/21 08:09 RDW 12.6 % (12.1-15.1) 02/26/21 08:09 Plt Count 289 10^3/cmm (130-400) 02/26/21 08:09 MPV 11.6 fL (7.4-10.4) H 02/26/21 08:09 Neut % (Auto) 75.7 % 02/26/21 08:09 Lymph % (Auto) 12.9 % 02/26/21 08:09 [place] % (Auto) 7.8 % 02/26/21 08:09 Eos % (Auto) 2.7 % 02/26/21 08:09 Baso % (Auto) 0.6 % 02/26/21 08:09 Neut # (Auto) 6.56 10^3/uL (1.8-7.7) 02/26/21 08:09 Lymph # (Auto) 1.1 10^3/uL (0.8-4.8) 02/26/21 08:09 [place] # (Auto) 0.7 10^3/uL (0.2-0.9) 02/26/21 08:09 Eos # (Auto) 0.2 10^3/uL (0.0-0.8) 02/26/21 08:09 Baso # (Auto) 0.1 10^3/uL (0.0-0.1) 02/26/21 08:09 Nucleated RBC % (auto) 0 % 02/26/21 08:09 Nucleated RBCs # 0.0 /100WBC 02/26/21 08:09 Sodium 139 mmol/L (136-145) 02/26/21 08:09 Potassium 3.7 mmol/L (3.5-5.1) 02/26/21 08:09 Chloride 97 mmol/L (98-107) L 02/26/21 08:09 Carbon Dioxide 26 mmol/L (22-29) 02/26/21 08:09 Anion Gap 19.7 (5-19) H 02/26/21 08:09 BUN 16 mg/dL (6-20) 02/26/21 08:09 Creatinine 0.9 mg/dL (0.5-0.9) 02/26/21 08:09 GFR Calculation 64.5 mL/min (90-130) L 02/26/21 08:09 Glucose 212 mg/dL (65-115) H 02/26/21 08:09 Calculated Osmolality 295 mOsm/kg (285-295) 02/26/21 08:09 Calcium 8.2 mg/dL (8.5-10.5) L 02/26/21 08:09 Magnesium 1.9 mg/dL (1.7-2.3) 02/26/21 08:09 Total Bilirubin 0.6 mg/dL (0.15-1.2) 02/25/21 04:30 AST 27 U/L (0-32) 02/25/21 04:30 ALT 50 U/L (0-33) H 02/25/21 04:30 Alkaline Phosphatase 97 IU/L (35-105) 02/25/21 04:30 Troponin T Baseline 16 ng/L (0-10) H 02/24/21 14:20 Troponin T 120 Minute 15.67 ng/L (0-10) H 02/24/21 16:31 Delta Troponin T -0.33 ABS# (0-10) L 02/24/21 16:31 NT-Pro-B Natriuret Pep 4622 pg/mL (0-125) H 02/24/21 14:20 Total Protein 6.1 g/dL (6.6-8.7) L 02/25/21 04:30 Albumin 3.6 g/dL (3.5-5.2) 02/25/21 04:30 Globulin 2.5 g/dL (1.3-4.6) 02/25/21 04:30 TSH 2.89 uIU/mL (0.27-4.20) 02/24/21 14:20 A&P Assessment and plan (1) Atrial fibrillation with controlled ventricular rate: Status: Acute (2) Acute diastolic heart failure: Status: Acute (3) Benign essential hypertension with target blood pressure below 140/90: Status: Acute Additional A&P Information The patient is admitted with atrial fibrillation rapid ventricular rate. She is on amiodarone. Digoxin was started yesterday. Currently the rate is under control. We will continue on the current medications. She has some symptoms of sweating and fatigue. It is not very clear whether this is related to the arrhythmia or not. Encourage for ambulation on telemetry. If she has significant improvement of the symptoms, we may continue on the current medications. If she gets more symptomatic, need to consider repeat cardioversion. For the long-term management, she may benefit from a catheter-based option. She is known to have high blood pressure. Currently she is normotensive. May continue on the current medications. She also had features of diastolic heart failure. Currently she seems to be getting compensated. We will try to optimize her heart failure medications. EKG and dig level in the morning Encourage ambulation on telemetry Attestations Medical Necessity Statement*: Patient requires continued hospital stay for close monitoring and further management Coding Level of Care Code Acute Artist Woodblock for [facility] Fwd Exam Detailed Diagnoses Atrial fibrillation with controlled ventricular rate I48.91 Acute diastolic heart failure I50.31 Benign essential hypertension with target blood pressure below 140/90 I10 Time Spent (min) 35
--- NOTE | 2021-02-26 15:12 | PC.NURSE ---
Dr. Rasheed on unit to assess patient HR 110-[address] rasheed notifid at this time this nurse missed the turn off amio gtt 2 hours after medication instructions to give stop amio drip and give 250mcg IVP digoxin upon entering room patient reports she was just out of bed patient instructions from Dr rasheed to hold dig administration for 40 min if HR remains elevated give Dig
--- NOTE | 2021-02-26 16:33 | PC.NURSE ---
1626 patient HR is no 97 Blood pressure 107/92 patient remains asymptomatic 1635 while writing this note patient HR elevated to 130-[address] Obrien notified instructions to continue to monitor while writing this note patient continue to fluctuate 88-120 will continue to monitor
[2021-02-26] MEDS: rivaroxaban 10 mg Tablet 20 MG PO (17:21)
[2021-02-26] MEDS: ondansetron 2 mg/ML SDV 2 mL 4 MG IVP (19:56)
[2021-02-26] MEDS: zolpidem 5 mg Tablet PO (19:57)
[2021-02-27] VITALS (9 sets, daily range): BP systolic 99–136; BP diastolic 52–87; PULSE 80–106; RESP 12–23; TEMP 36.6–36.7; O2SAT 92–99
[2021-02-27 03:41] LABS: Basophils # 0.1 10^3/uL (0.0-0.1); Basophils % 0.6 %; Eosinophils # 0.2 10^3/uL (0.0-0.8); Eosinophils % 1.9 %; Hematocrit 48.7 % (37.0-47.0); Hemoglobin 15.4 g/dL (11.5-15.3); Lymphocytes # 2.1 10^3/uL (0.8-4.8); Lymphocytes % 16.8 %; Mean Corpuscular HGB Conc 31.6 g/dL (30.0-36.0); Mean Corpuscular Hemoglobin 28.4 pg (28.0-34.0); Mean Corpuscular Volume 89.9 fL (81-99); Mean Platelet Volume 11.6 fL (7.4-10.4); Neutrophils # 8.85 10^3/uL (1.8-7.7); Neutrophils % 72.3 %; Nucleated Red Blood Cells % 0 %; Platelet Count 301 10^3/cmm (130-400); Red Blood Count 5.42 10^6/uL (4.1-5.3); Red Cell Distribution Width 12.7 % (12.1-15.1); White Blood Count 12.2 10^3/uL (4.0-10.0)
[2021-02-27 04:02] LABS: Blood Urea Nitrogen 16 mg/dL (6-20); Calcium 8.5 mg/dL (8.5-10.5); Carbon Dioxide 28 mmol/L (22-29); Chloride 99 mmol/L (98-107); Glomerular Filtration Rate 86.2 mL/min (90-130); Glucose 94 mg/dL (65-115); Magnesium 2.2 mg/dL (1.7-2.3); Osmolality Calculated 289 mOsm/kg (285-295); Sodium 139 mmol/L (136-145)
[2021-02-27 04:04] LABS: Anion Gap 16.2 (5-19); Potassium 4.2 mmol/L (3.5-5.1)
[2021-02-27 04:12] LABS: Digoxin 2.1 ng/mL (0.6-1.2)
[2021-02-27] MEDS: FUROsemide 10 mg/mL SDV 4mL 40 MG IVP ×2 (05:53→17:17)
--- NOTE | 2021-02-27 06:00 | ECG_ITS ---
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 Measurements Intervals [place] Rate: 115 P: [place]: QRS: 12 QRSD: 67 T: 121 QT: 326 QTc: 452 Interpretive Statements ATRIAL FLUTTER/TACHYCARDIA WITH RAPID VENTRICULAR RESPONSE LOW QRS VOLTAGE IN PRECORDIAL LEADS [QRS DEFLECTION < 1.0 mV IN CHEST LEADS] POSSIBLE ANTERIOR MYOCARDIAL INFARCTION [30 ms Q WAVE IN V3/V4, OR R < 0.2 mV IN V4], OF INDETERMINATE AGE MODERATE T-WAVE ABNORMALITY, CONSIDER LATERAL ISCHEMIA [-0.1+ mV T WAVE IN I/aVL/V5/V6] Compared to ECG 02/24/2021 15:41:28 Low QRS voltage now present Myocardial infarct finding now present Possible ischemia now present T-wave abnormality still present Electronically Signed On 02-27-2021 20:50:26 CDT by Dennys Haley M.D. [id number]
[2021-02-27] MEDS: sertraline 50 mg Tablet 25 MG PO (08:19)
[2021-02-27] MEDS: metoprolol tartrate 50 mg Tablet PO ×3 (08:19→20:13)
[2021-02-27] MEDS: spironolactone 25 mg Tablet PO (08:19)
[2021-02-27] MEDS: amiodarone 200 mg Tablet PO ×2 (08:19→17:17)
[2021-02-27] MEDS: potassium chloride ER 20 mEq Tablet 40 MEQ PO (08:24)
--- NOTE | 2021-02-27 09:46 | P.PN_ITS ---
Subjective Subjective: Interval history: The patient is feeling better.. Has some dyspnea on exertion. Heart rate is mostly under control. She has intermittent fast heartbeat. Medications: Reviewed: Yes Medication Review Details: Current Medications Acetaminophen (Acetaminophen 325 Mg Tablet) 650 mg PO Q6H PRN PRN Reason: Mild/Mod Pain Or Temp >/= 101 Amiodarone HCl (Amiodarone 200 Mg Tablet) 200 mg PO BID [facility] Last Admin: 02/27/21 08:19 Dose: 200 mg Documented by: Digoxin (Digoxin 250 Mcg Tablet) 250 mcg PO DAILY [facility] Furosemide (Furosemide 10 Mg/Ml Sdv 4ml) 40 mg IVP Q12H [facility] Last Admin: 02/27/21 05:53 Dose: 40 mg Documented by: Amiodarone HCl 900 mg/Dextrose/ IV Miscellaneous Supplies 518 mls @ 0 mls/hr IV .Q0M [facility]; Protocol Last Titration: 02/26/21 15:11 Dose: Infused Documented by: Metoprolol Tartrate (Metoprolol Tartrate 50 Mg Tablet) 50 mg PO BID@0900,2100 [facility] Last Admin: 02/27/21 08:19 Dose: 50 mg Documented by: Ondansetron HCl (Ondansetron 2 Mg/Ml Sdv 2 Ml) 4 mg IVP Q6H PRN PRN Reason: NAUSEA AND VOMITING Last Admin: 02/26/21 19:56 Dose: 4 mg Documented by: Potassium Chloride (Potassium Chloride Er 20 Meq Tablet) 40 meq PO DAILY [facility] Last Admin: 02/27/21 08:24 Dose: 40 meq Documented by: Rivaroxaban (Rivaroxaban 10 Mg Tablet) 20 mg PO DAILY@1800 [facility] Last Admin: 02/26/21 17:21 Dose: 20 mg Documented by: Sertraline HCl (Sertraline 50 Mg Tablet) 25 mg PO DAILY@0800 [facility] Last Admin: 02/27/21 08:19 Dose: 25 mg Documented by: Spironolactone (Spironolactone 25 Mg Tablet) 25 mg PO DAILY@0800 [facility] Last Admin: 02/27/21 08:19 Dose: 25 mg Documented by: Zolpidem Tartrate (Zolpidem 5 Mg Tablet) 5 mg PO BEDTIME PRN PRN Reason: ANXIETY Last Admin: 02/26/21 19:57 Dose: 5 mg Documented by: Vitals/I&O/Wt Last Vital Signs Temp 98.0 F 02/27/21 07:23 Pulse 106 H 02/27/21 07:23 Resp 20 H 02/27/21 07:23 BP 136/87 02/27/21 07:23 Pulse Ox 92 02/27/21 07:23 02/26/21 02/27/21 02/27/21 22:59 06:59 14:59 Intake Total 793.602 / 1273.602 120 / 120 Output Total 900 / 1900 Balance 793.602 / 273.602 -900 / -626.398 120 / 120 Weight last 48 hrs Weight 154 lb 9.6 oz Weight 253 lb Physical Exam Narrative: EXAM NARRATIVE: GENERAL: The patient is alert and oriented times three. Not in any acute distress. Morbidly obese HEENT: No significant pallor, icterus or lymphadenopathy.Oral cavity: There are no mucous membrane lesions. NECK: Trachea appears to be central. No masses noted. No JVD or thyromegaly appreciated. RESPIRATORY: Chest is symmetrical. No intercostals muscle retraction or any accessory muscle activation. There is no chest wall tenderness. Breath sounds are heard bilaterally. No rales or rhonchi heard. No evidence of any consolid ation. BREASTS: Deferred. HEART: The heart sounds are normal. No S3 or S4. No significant murmurs. No pericardial rub ABDOMEN: Obese no vessel pulsations or distention. No tenderness. No organomeg vernon appreciated. Bowel sounds are normally heard. : Deferred. RECTAL: Deferred. LYMPHATIC: No lymphadenopathy noted in the neck. EXTREMITIES: No edema or cyanosis. No clubbing. MUSCULOSKELETAL: No acute joint deformities or swelling SKIN: There are no significant rashes or ecchymosis NEUROPSYCHIATRIC: The patient is alert and oriented x3. Appears to be in a good mood. No tremors or rigidity noted. Data : 02/27/21 02:46 02/27/21 02:46 Other Labs: Laboratory Last Values WBC 12.2 10^3/uL (4.0-10.0) H 02/27/21 02:46 RBC 5.42 10^6/uL (4.1-5.3) H 02/27/21 02:46 Hgb 15.4 g/dL (11.5-15.3) H 02/27/21 02:46 Hct 48.7 % (37.0-47.0) H 02/27/21 02:46 MCV 89.9 fL (81-99) 02/27/21 02:46 MCH 28.4 pg (28.0-34.0) 02/27/21 02:46 MCHC 31.6 g/dL (30.0-36.0) 02/27/21 02:46 RDW 12.7 % (12.1-15.1) 02/27/21 02:46 Plt Count 301 10^3/cmm (130-400) 02/27/21 02:46 MPV 11.6 fL (7.4-10.4) H 02/27/21 02:46 Neut % (Auto) 72.3 % 02/27/21 02:46 Lymph % (Auto) 16.8 % 02/27/21 02:46 [place] % (Auto) 8.0 % 02/27/21 02:46 Eos % (Auto) 1.9 % 02/27/21 02:46 Baso % (Auto) 0.6 % 02/27/21 02:46 Neut # (Auto) 8.85 10^3/uL (1.8-7.7) H 02/27/21 02:46 Lymph # (Auto) 2.1 10^3/uL (0.8-4.8) 02/27/21 02:46 [place] # (Auto) 1.0 10^3/uL (0.2-0.9) H 02/27/21 02:46 Eos # (Auto) 0.2 10^3/uL (0.0-0.8) 02/27/21 02:46 Baso # (Auto) 0.1 10^3/uL (0.0-0.1) 02/27/21 02:46 Nucleated RBC % (auto) 0 % 02/27/21 02:46 Nucleated RBCs # 0.0 /100WBC 02/27/21 02:46 Sodium 139 mmol/L (136-145) 02/27/21 02:46 Potassium 4.2 mmol/L (3.5-5.1) 02/27/21 02:46 Chloride 99 mmol/L (98-107) 02/27/21 02:46 Carbon Dioxide 28 mmol/L (22-29) 02/27/21 02:46 Anion Gap 16.2 (5-19) 02/27/21 02:46 BUN 16 mg/dL (6-20) 02/27/21 02:46 Creatinine 0.7 mg/dL (0.5-0.9) 02/27/21 02:46 GFR Calculation 86.2 mL/min (90-130) L 02/27/21 02:46 Glucose 94 mg/dL (65-115) 02/27/21 02:46 Calculated Osmolality 289 mOsm/kg (285-295) 02/27/21 02:46 Calcium 8.5 mg/dL (8.5-10.5) 02/27/21 02:46 Magnesium 2.2 mg/dL (1.7-2.3) 02/27/21 02:46 Total Bilirubin 0.6 mg/dL (0.15-1.2) 02/25/21 04:30 AST 27 U/L (0-32) 02/25/21 04:30 ALT 50 U/L (0-33) H 02/25/21 04:30 Alkaline Phosphatase 97 IU/L (35-105) 02/25/21 04:30 Troponin T Baseline 16 ng/L (0-10) H 02/24/21 14:20 Troponin T 120 Minute 15.67 ng/L (0-10) H 02/24/21 16:31 Delta Troponin T -0.33 ABS# (0-10) L 02/24/21 16:31 NT-Pro-B Natriuret Pep 4622 pg/mL (0-125) H 02/24/21 14:20 Total Protein 6.1 g/dL (6.6-8.7) L 02/25/21 04:30 Albumin 3.6 g/dL (3.5-5.2) 02/25/21 04:30 Globulin 2.5 g/dL (1.3-4.6) 02/25/21 04:30 TSH 2.89 uIU/mL (0.27-4.20) 02/24/21 14:20 Digoxin 2.1 ng/mL (0.6-1.2) H 02/27/21 02:46 A&P Assessment and plan (1) Atrial fibrillation with controlled ventricular rate: The ventricular rate seems to be getting under control. May continue on the current medications. Encouraged ambulation on telemetry. If she has significant symptoms, need to consider electrical cardioversion Status: Acute (2) Benign essential hypertension with target blood pressure below 140/90: Blood pressure seems to be under control. We will continue on the current medications. Status: Acute (3) Acute diastolic heart failure: Heart failure is currently compensated. I will discontinue the IV Lasix and start her on p.o. Lasix 40 mg p.o. twice daily. Continue the spironolactone Status: Acute (4) Hypokalemia: Currently corrected. Continue on the current dose of potassium Status: Acute (5) SLIM (generalized anxiety disorder): May continue on the current medications. Status: Acute Additional A&P Information BMP and an EKG in the morning. Based on the clinical progress, further management decisions will be made Attestations Medical Necessity Statement*: Patient requires continued hospital stay for close monitoring and further management Coding Level of Care Code Acute Supervisor Compounding And Finishing for [facility] Fwd Diagnoses Atrial fibrillation with controlled ventricular rate I48.91 Benign essential hypertension with target blood pressure below 140/90 I10 Acute diastolic heart failure I50.31 Hypokalemia E87.6 SLIM (generalized anxiety disorder) F41.1
[2021-02-27 09:49] LABS: Digoxin 1.3 ng/mL (0.6-1.2)
--- NOTE | 2021-02-27 10:00 | ECG_ITS ---
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 Measurements Intervals [place] Rate: 100 P: MT: QRS: 17 QRSD: 77 T: 72 QT: 415 QTc: 538 Interpretive Statements ATRIAL FLUTTER/TACHYCARDIA WITH RAPID VENTRICULAR RESPONSE LOW QRS VOLTAGE IN PRECORDIAL LEADS [QRS DEFLECTION < 1.0 mV IN CHEST LEADS] MODERATE T-WAVE ABNORMALITY, CONSIDER ANTERIOR ISCHEMIA [-0.1+ mV T WAVE IN V3/V4] MODERATE T-WAVE ABNORMALITY, CONSIDER INFERIOR ISCHEMIA [-0.1+ mV T WAVE IN II/aVF] Compared to ECG 02/27/2021 05:37:48 Myocardial infarct finding no longer present T-wave abnormality still present Possible ischemia still present Electronically Signed On 02-27-2021 20:50:33 CDT by Dennys Haley M.D. [id number]
--- NOTE | 2021-02-27 14:24 | P.PN_ITS ---
Subjective Subjective: Interval history: Patient was seen and examined.Currently in flutter with rate in 110-130s. She was also complaining of nausea, which she is having since last discharge. Medications: Reviewed: Yes Medication Review Details: Current Medications Acetaminophen (Acetaminophen 325 Mg Tablet) 650 mg PO Q6H PRN PRN Reason: Mild/Mod Pain Or Temp >/= 101 Amiodarone HCl (Amiodarone 200 Mg Tablet) 200 mg PO BID [facility] Last Admin: 02/27/21 08:19 Dose: 200 mg Documented by: Digoxin (Digoxin 250 Mcg Tablet) 250 mcg PO DAILY [facility] Furosemide (Furosemide 10 Mg/Ml Sdv 4ml) 40 mg IVP Q12H [facility] Last Admin: 02/27/21 05:53 Dose: 40 mg Documented by: Amiodarone HCl 900 mg/Dextrose/ IV Miscellaneous Supplies 518 mls @ 0 mls/hr IV .Q0M [facility]; Protocol Last Titration: 02/26/21 15:11 Dose: Infused Documented by: Metoprolol Tartrate (Metoprolol Tartrate 50 Mg Tablet) 50 mg PO BID@0900,2100 [facility] Last Admin: 02/27/21 08:19 Dose: 50 mg Documented by: Ondansetron HCl (Ondansetron 2 Mg/Ml Sdv 2 Ml) 4 mg IVP Q6H PRN PRN Reason: NAUSEA AND VOMITING Last Admin: 02/26/21 19:56 Dose: 4 mg Documented by: Potassium Chloride (Potassium Chloride Er 20 Meq Tablet) 40 meq PO DAILY [facility] Last Admin: 02/27/21 08:24 Dose: 40 meq Documented by: Rivaroxaban (Rivaroxaban 10 Mg Tablet) 20 mg PO DAILY@1800 [facility] Last Admin: 02/26/21 17:21 Dose: 20 mg Documented by: Sertraline HCl (Sertraline 50 Mg Tablet) 25 mg PO DAILY@0800 [facility] Last Admin: 02/27/21 08:19 Dose: 25 mg Documented by: Spironolactone (Spironolactone 25 Mg Tablet) 25 mg PO DAILY@0800 [facility] Last Admin: 02/27/21 08:19 Dose: 25 mg Documented by: Zolpidem Tartrate (Zolpidem 5 Mg Tablet) 5 mg PO BEDTIME PRN PRN Reason: ANXIETY Last Admin: 02/26/21 19:57 Dose: 5 mg Documented by: Vitals/I&O/Wt Last Vital Signs Temp 98.0 F 02/27/21 12:00 Pulse 104 H 02/27/21 12:00 Resp 12 02/27/21 12:00 BP 99/77 02/27/21 12:00 Pulse Ox 99 02/27/21 12:00 02/26/21 02/27/21 02/27/21 22:59 06:59 14:59 Intake Total 793.602 / 1273.602 360 / 360 Output Total 900 / 1900 Balance 793.602 / 273.602 -900 / -626.398 360 / 360 Weight last 48 hrs Weight 70.125 kg Weight 114.759 kg Physical Exam Const: COMMON NORMALS: patient oriented x3 HENMT: COMMON NORMALS: normocephalic and atraumatic HEAD & SCALP: normocephalic and atraumatic Resp: COMMON NORMALS: clear to auscultation bilaterally EFFORT & IN SPECTION: Yes symmetric chest movement AUSCULTATION: clear to auscultation bilaterally Cardio: COMMON NORMALS: No murmurs present (Cardio), No rub (Cardio) and Peripheral pulses 2+ throughout PERIPHERAL PULSES: Peripheral pulses 2+ throughout OTHER: Irregularly irregular rhythm, S1-S2 of variable intensity GI: COMMON NORMALS: Normal to inspection, nondistended, normoactive bowel sounds present, Soft to palpation, non-tender, No hepatosplenomegaly present and no masses AUSCULTATION: Yes normoactive bowel sounds PALPATION: Yes Soft to palpation and Yes No hepatosplenomegaly present RECTAL EXAM: deferred Extremity: COMMON NORMALS: no clubbing, cyanosis or edema and no pedal edema Neuro: COMMON NORMALS: patient oriented x3 Data : 02/27/21 02:46 02/27/21 02:46 A&P Assessment and plan (1) Atrial fibrillation with RVR: s/p recent cardioversion on 02/08 Currently on amiodarone 400mg po daily, metoprolol 25mg BID as outpatient. Amiodarone dose increased from 200 to 400mg daily on 02/20/21 Plan: Initially she was on amiodarone infusion. Amiodarone drip has been switched off, she has been started on amiodarone p.o. 200 mg twice daily. metoprolol dose has been increased to 50 mg po BID, with additional 50 mg po metoprolol dose today, for better heart rate control. She has received loading dose of digoxin 500 mcg IV. Followed by 250 mcg IV x3. Serum digoxin level done this morning was 2.1--->1.3. We will switch her to 125 mcg digoxin p.o. daily once serum digoxin level normalizes. If the rate remains uncontrolled, electrical cardioversion can be attempted, patient can also be a candidate for A.fib/flutter ablation No acute ST-T wave changes on EKG, troponin series without significant delta Appreciate cardiology consult Status: Acute (2) CHF (congestive heart failure): Currently compensated Lasix 40 IV twice daily Oral potassium: 40 meq po daily Currently she is -576 ml Daily weight Intake output charting k>4, Mg>2 Status: Acute Qualifiers: Heart failure type: unspecified Heart failure chronicity: acute Juan Luis lified Code(s): I50.9 - Heart failure, unspecified (3) Elevated digoxin level: Currently she denies any clinical symptoms suggestive of digoxin toxicity. Serial digoxin level We will avoid DIGIFAB Status: Acute (4) Essential hypertension: Currently BP is well controlled Status: Acute (5) Transaminitis: Persisting but improved over 02/03/20 Hepatitis screen negative at the time Appears to pre date starting amiodarone. Status: Acute (6) Hypokalemia: Monitor and replace Status: Acute Additional A&P Information DVT ppx: On Xarelto Full code Attestations 2 Medical Necessity Statement*: Patient needs to be in hospital for management of with A. fib/a flutter with RVR. Coding Level of Care Code Acute Activated Sludge Attendant for [facility] Fwd Diagnoses Atrial fibrillation with RVR I48.91 CHF (congestive heart failure) I50.9 Heart failure type: unspecified Heart failure chronicity: acute Elevated digoxin level R78.89 Essential hypertension I10 Transaminitis R74.01 Hypokalemia E87.6
[2021-02-27] MEDS: ondansetron 2 mg/ML SDV 2 mL 4 MG IVP (14:39)
[2021-02-27] MEDS: rivaroxaban 10 mg Tablet 20 MG PO (17:17)
[2021-02-27] MEDS: zolpidem 5 mg Tablet PO (20:34)
[2021-02-28 03:30] VITALS: BP 116/76; PULSE 80; RESP 12; TEMP 36.8; O2SAT 98
[2021-02-28 04:09] LABS: Basophils # 0.1 10^3/uL (0.0-0.1); Basophils % 0.6 %; Eosinophils # 0.3 10^3/uL (0.0-0.8); Eosinophils % 2.8 %; Hematocrit 47.9 % (37.0-47.0); Lymphocytes # 2.1 10^3/uL (0.8-4.8); Mean Corpuscular HGB Conc 31.3 g/dL (30.0-36.0); Mean Corpuscular Hemoglobin 28.4 pg (28.0-34.0); Mean Corpuscular Volume 90.5 fL (81-99); Mean Platelet Volume 11.2 fL (7.4-10.4); Monocytes # 0.9 10^3/uL (0.2-0.9); Neutrophils # 6.21 10^3/uL (1.8-7.7); Neutrophils % 65.3 %; Nucleated Red Blood Cells % 0 %; Platelet Count 271 10^3/cmm (130-400); Red Blood Count 5.29 10^6/uL (4.1-5.3); Red Cell Distribution Width 12.5 % (12.1-15.1); White Blood Count 9.5 10^3/uL (4.0-10.0)
[2021-02-28 04:28] LABS: Anion Gap 13.6 (5-19); Blood Urea Nitrogen 16 mg/dL (6-20); Calcium 8.4 mg/dL (8.5-10.5); Carbon Dioxide 28 mmol/L (22-29); Chloride 98 mmol/L (98-107); Glomerular Filtration Rate 86.2 mL/min (90-130); Glucose 102 mg/dL (65-115); Magnesium 2.2 mg/dL (1.7-2.3); Osmolality Calculated 283 mOsm/kg (285-295); Potassium 3.6 mmol/L (3.5-5.1); Sodium 136 mmol/L (136-145)
[2021-02-28 04:39] LABS: Digoxin 1.4 ng/mL (0.6-1.2)
[2021-02-28 05:44] VITALS: PULSE 106
[2021-02-28 07:07] VITALS: BP 101/81; PULSE 132; RESP 20; TEMP 36.7; O2SAT 98
[2021-02-28] MEDS: sertraline 50 mg Tablet 25 MG PO (08:23)
[2021-02-28] MEDS: potassium chloride ER 20 mEq Tablet 40 MEQ PO (08:24)
[2021-02-28] MEDS: FUROsemide 40 mg Tablet PO (08:24)
[2021-02-28] MEDS: amiodarone 200 mg Tablet PO (08:24)
[2021-02-28] MEDS: spironolactone 25 mg Tablet PO (08:24)
[2021-02-28] MEDS: metoprolol tartrate 50 mg Tablet PO (08:24)
--- NOTE | 2021-02-28 08:45 | PM.PN ---
Subjective Subjective: Interval history: Patient is doing well. She has converted to normal sinus rhythm. No complaints of chest pain or shortness of breath Vitals/I&O/Wt Last Vital Signs Temp 98.0 F 02/28/21 07:07 Pulse 132 H 02/28/21 07:07 Resp 20 H 02/28/21 07:07 BP 101/81 02/28/21 07:07 Pulse Ox 98 02/28/21 07:07 02/27/21 02/28/21 02/28/21 22:59 06:59 14:59 Intake Total 1242.5 / 1602.5 100 / 1702.5 120 / 120 Output Total 1000 / 1000 Balance 242.5 / 602.5 100 / 702.5 120 / 120 Weight last 48 hrs Weight 156 lb Weight 154 lb 9.6 oz Physical Exam Const: COMMON NORMALS: patient oriented x3 HENMT: COMMON NORMALS: normocephalic and atraumatic HEAD & SCALP: normocephalic and atraumatic Resp: COMMON NORMALS: clear to auscultation bilaterally EFFORT & INSPECTION: Yes symmetric chest movement AUSCULTATION: clear to auscultation bilaterally Cardio: COMMON NORMALS: No murmurs present (Cardio), No rub (Cardio) and Peripheral pulses 2+ throughout PERIPHERAL PULSES: Peripheral pulses 2+ throughout OTHER: Irregularly irregular rhythm GI: COMMON NORMALS: Normal to inspection, nondistended, normoactive bowel sounds present, Soft to palpation, non-tender, No hepatosplenomegaly present and no masses AUSCULTATION: Yes normoactive bowel sounds PALPATION: Yes Soft to palpation and Yes No hepatosplenomegaly present RECTAL EXAM: deferred Extremity: COMMON NORMALS: no clubbing, cyanosis or edema and no pedal edema Neuro: COMMON NORMALS: patient oriented x3 Data : 02/28/21 03:32 02/28/21 03:32 A&P Assessment and plan (1) Atrial fibrillation with RVR: Status: Resolved (2) CHF (congestive heart failure): Status: Resolved Qualifiers: Heart failure chronicity: acute Heart failure type: unspecified Qualified Code(s): I50.9 - Heart failure, unspecified (3) Essential hypertension: Status: Resolved Patient has converted back to normal sinus rhythm. Patient is overall feeling well. Continue anticoagulation with Xarelto Amiodarone 200mg BID can be continued for now. Will down titrate dose of digoxin to 125mcg Lasix PO Thank you for involving us with care of this patient. Patient is ready to be discharged from cardiology standpoint. Please call with questions Attestations Medical Necessity Statement*: Care expected to cross 2 midnights Coding Level of Care Code Acute Bulk Gas Specialist for [place] Fwd Exam Detailed Diagnoses Atrial fibrillation with RVR I48.91 CHF (congestive heart failure) I50.9 Heart failure chronicity: acute Heart failure type: unspecified Essential hypertension I10
--- NOTE | 2021-02-28 09:02 | PC.NURSE ---
Conversion to Sinus Rhythm HR-70s-80s. Pt was on the bed asleep. Pt denies any pain or shortness of breath. Hospitalist and Skimmer notified. 12 Lead EKG taken.
--- NOTE | 2021-02-28 10:01 | ECG_ITS ---
[facility] Test Date: 2021-02-28 Pat Name: Poonam Javier Department: Room: 104 Gender: Female Sampling Expert: : 1965 Requested By: Lucia Soler Order Number: [id number] Reading MD: Dennys Haley M.D. Measurements Intervals [place] Rate: 74 P: 52 W[place]: 189 QRS: 21 QRSD: 82 T: 141 QT: 370 QTc: 411 Interpretive Statements SINUS RHYTHM LOW QRS VOLTAGE IN PRECORDIAL LEADS [QRS DEFLECTION < 1.0 mV IN CHEST LEADS] ST DEVIATION AND MODERATE T-WAVE ABNORMALITY, CONSIDER ANTEROLATERAL ISCHEMIA [-0.1+ mV T WAVE IN V3-V6] Compared to ECG 02/27/2021 10:38:51 Atrial flutter no longer present T-wave abnormality still present Possible ischemia still present Electronically Signed On 03-01-2021 0:52:37 CDT by Dennys Haley M.D. [id number]
[2021-02-28 10:44] VITALS: BP 126/82; PULSE 84; RESP 18; TEMP 36.7; O2SAT 97
--- NOTE | 2021-02-28 11:54 | P.DS_ITS ---
Discharge Providers Date of Admission: 02/24/21 18:01 Date of Discharge: February 28, 2021 Attending Provider at Admission: Lucia Soler MD Attending Provider at Discharge: Lucia Soler MD Diagnoses at Discharge Discharge Diagnosis (1) Atrial fibrillation with controlled ventricular rate: Status: Acute Permanent problem details: Admitted with atrial fibrillation rapid ventricular rate. The rate is getting under control (2) Benign essential hypertension with target blood pressure below 140/90: Status: Acute (3) Acute diastolic heart failure: Status: Acute (4) Hypokalemia: Status: Acute (5) SLIM (generalized anxiety disorder): Status: Acute Reason for Visit Reason for Visit: HIGH HEART RATE Hospital Course Hospital Course Poonam Javier is a 55 year old female who was recently admitted 02/06-02/10 with A fib with RVR s/p cardioversion on 02/08. Doing well at discharge, in sinus rhythm, discharged with amiodarone 400mg po daily, metoprolol 25mg po BID, spirinolactone 25mg daily and lasix 40mg BID. Amiodarone subsequently reduced as outpatient when heart rate noted to be ranging between 58-90. She was admitted on February 24, 2021 with symptoms of fatigue, palpitations, nausea and sweating. She was found to be in afib with RVR again. Started on amiodarone infusion, metoprolol was uptitrated and digoxin was additionally added to her regimen. Anticoagulation was continued with Xarelto. She did achieve rate control with the above measures, and eventually converted into sinus rhythm on the morning of February 28, 2021. Diastolic heart failure remained compensated during the course of admission. This morning patient is noted to be ambulating in the hallway, walked up to the nursing station, saturating 97% on room air, denies any dyspnea or palpitations. Has some lingering nausea, which has been pre-existing since this current admission, may be related to GERD, adding Protonix and as needed Zofran at the time of discharge. QTc interval reviewed normal at 411 ms Physical Exam Narrative: EXAM NARRATIVE: General: No acute distress, AO x3 HEENT: PERRLA, pupils bilaterally equal and reactive, pallors not present Chest: Normal vesicular breath sounds, no added sounds, equal good air entry bilaterally CVS: S1-S2 regular, no murmurs, no tachycardia, no gallops, no rubs Abdomen: Soft, nontender, no organomegaly, bowel sounds present Neuro: No focal deficits, no facial deformity, AO x3, power 5/5 in all limbs Extremities: No edema cyanosis or clubbing Discharge Data Data Completed and Pending: Completed Studies During Hospitalization Category Date Time Status CT angio chest PE protcl 69352 Stat Cat Scan 02/24/21 16:47 Completed XR chest 1V robin ble [id number] Urgent Exams 02/24/21 13:31 Completed Pending at discharge Category Date Time Status Basic Metabolic P adeola AM LABS Lab 03/01/21 04:00 Ordered Complete Blood Co unt w/Auto AM LABS Lab 03/01/21 04:00 Ordered Digoxin AM LABS Lab 03/01/21 04:00 Ordered Digoxin AM LABS Lab 03/02/21 04:00 Ordered Magnesium AM LABS Lab 03/01/21 04:00 Ordered Labs from last 24 hours 02/28/21 02/28/21 02/28/21 03:32 03:32 03:32 WBC 9.5 RBC 5.29 Hgb 15.0 Hct 47.9 H MCV 90.5 MCH 28.4 MCHC 31.3 RDW 12.5 Plt Count 271 MPV 11.2 H Neut % (Auto) 65.3 Lymph % (Auto) 22.0 [place] % (Auto) 9.0 Eos % (Auto) 2.8 Baso % (Auto) 0.6 Neut # (Auto) 6.21 Lymph # (Auto) 2.1 [place] # (Auto) 0.9 Eos # (Auto) 0.3 Baso # (Auto) 0.1 Nucleated RBC % (a uto) 0 Nucleated RBCs # 0.0 Sodium 136 Potassium 3.6 Chloride 98 Carbon Dioxide 28 Anion Gap 13.6 BUN 16 Creatinine 0.7 GFR Calculation 86.2 L Glucose 102 Calculated Osmolal ity 283 L Calcium 8.4 L Magnesium 2.2 Digoxin 1.4 H Vitals: Last Vital Signs Temp 98.0 F 02/28/21 10:44 Pulse 84 02/28/21 10:44 Resp 18 02/28/21 10:44 BP 126/82 02/28/21 10:44 Pulse Ox 97 02/28/21 10:44 Discharge Plan Discharge Patient Disposition: Home Condition: Stable Prescriptions: New Pacerone 200 mg Tablet 200 mg PO BID 30 Days Qty: 60 RF: 0 metoprolol tartrate 50 mg Tablet 50 mg PO BID@0900,2100 30 Days Qty: 60 RF: 0 digoxin 125 mcg (0.125 mg) tablet 125 mcg PO DAILY 30 Days Qty: 30 RF: 0 ondansetron HCl [Zofran] 4 mg tablet 4 mg PO Q8H PRN (Reason: nausea and vomiting) 4 Days Qty: 15 RF: 0 pantoprazole 40 mg tablet,delayed release (DR/EC) 40 mg PO DAILY 30 Days Qty: 30 RF: 0 Continued potassium chloride [Klor-Con M20] 20 mEq Tablet,Er Particles/Crystals 20 meq PO BID Qty: 60 RF: 3 Zoloft 25 mg tablet 25 mg PO DAILY@0800 RF: 0 furosemide 40 mg Tablet 40 mg PO BID@08,16 30 Days Qty: 60 RF: 3 Changed Aldactone 25 mg tablet 25 mg PO DAILY@0800 30 Days Qty: 30 RF: 0 rivaroxaban 20 mg tablet 20 mg PO DAILY@1800 30 Days Qty: 30 RF: 0 acetaminophen [Tylenol Extra Strength] 500 mg Tablet 650 mg PO Q6H PRN (Reason: Pain) Qty: 0 RF: 0 Discontinued Pacerone 200 mg tablet 200 mg PO BID@08,16 RF: 0 metoprolol tartrate 25 mg Tablet 25 mg PO BID@0900,2100 Qty: 60 RF: 3 aspirin 325 mg tablet 325 - 650 mg PO DAILY MDD SEE PHARMACY COMMENT RF: 0 Discharge Orders: Discharge Order (Routine); Ordered 02/28/21 Ordered By: Lucia Soler Referrals: Tray Parr M.D [Physician] - 1 week Discharge Diet: Cardiac Discharge Activity: Resume usual activity Patient Instructions: Opioid Safety Discharge Attestations Time Spent in Discharge Care*: greater than 30 min Quality Metrics Clinical Quality Measures During this hospital stay, did patient experience: None Coding Level of Care Code Acute Chg FW DC note Diagnoses Atrial fibrillation with controlled ventricular rate I48.91 Benign essential hypertension with target blood pressure below 140/90 I10 Acute diastolic heart failure I50.31 Hypokalemia E87.6 SLIM (generalized anxiety disorder) F41.1
[2021-02-28 14:02] VITALS: BP 113/73; PULSE 84; RESP 18; TEMP 36.7; O2SAT 97
--- NOTE | 2021-02-28 15:14 | PC.NURSE ---
Discharge to home with significant other Instructed pt to follow-up with her pcp and assistant director of security. Educated pt on her new meds actions, dosing and timing. Informed pt on the other meds dose changes. Discharge packet provided to pt.
== END 2021-02-28 15:11 | disposition home or self-care (01) | DRG 308 ==
LOC: ER 20:09 → CSU 20:39
PROVIDERS: Internal Medicine; Internal Medicine Cardiovascular Disease; Physician Assistant; Admitting Provider Student in an Organized Health Care Education/Training Program; Emergency Provider Family Medicine; Visit Provider Student in an Organized Health Care Education/Training Program
DX: I48.91 Unspecified atrial fibrillation (principal); I50.31 Acute diastolic (congestive) heart failure; I11.0 Hypertensive heart disease with heart failure; E87.6 Hypokalemia; F41.1 Generalized anxiety disorder
CPT/HCPCS: 36415; 71045; 71275; 80048; 80053; 80162; 83735; 83880; 84132; 84443; 84484; 85025; 93005; J0282; J1160; J1940; J2405; J3480; J7060; Q9967

== ENCOUNTER 2021-10-23 15:29 | Emergency (ER) | payer OTHER, SELFPAY ==
[2021-10-23 15:36] VITALS: BP 162/94; PULSE 52; RESP 16; TEMP 36.5; O2SAT 96; BMI 46.3
--- NOTE | 2021-10-23 15:58 | XRR_ITS ---
PROCEDURE INFORMATION: Exam: XR Left Ankle Exam date and time: 10/23/2021 3:58 PM Age: 55 years old Clinical indication: Injury or trauma; Blunt trauma; Patient HX: Left knee/ankle pain post fall; Additional info: Fall injury TECHNIQUE: Imaging protocol: XR Left ankle. Views: 3 or more views. Total images: 3 COMPARISON: No relevant prior studies available. FINDINGS: Bones/joints: No visible fracture, subluxation, or dislocation. Achilles enthesophyte. Mild osteoarthritis of the tarsals. Soft tissues: Soft tissue swelling over the lateral malleolus. XR/XR ankle LT min 3V* [id number] IMPRESSION: 1. No visible fracture. 2. Soft tissue swelling over the lateral malleolus.
--- NOTE | 2021-10-23 15:58 | XRR_ITS ---
PROCEDURE INFORMATION: Exam: XR Left Knee Exam date and time: 10/23/2021 3:58 PM Age: 55 years old Clinical indication: Injury or trauma; Blunt trauma; Patient HX: Left knee/ankle pain post fall; Additional info: Fall injury TECHNIQUE: Imaging protocol: XR Left knee. Views: 3 views. Total images: 3 COMPARISON: No relevant prior studies available. FINDINGS: Bones/joints: Moderate joint effusion. No visible fracture, subluxation, or dislocation. Soft tissues: Unremarkable. XR/XR knee LT 3V* [id number] IMPRESSION: Moderate joint effusion.
--- NOTE | 2021-10-23 19:28 | ED_ITS ---
HPI - Extremity Injury (Lower) General: Chief Complaint: Extremity Injury, Lower Stated Complaint: WC LEFT LEG AND FOOT INJURY Time Seen by Provider: 10/23/21 19:28 Source: patient Mode of arrival: wheelchair Limitations: no limitations History of Present Illness: HPI Narrative: Patient a 55-year-old female who presents to ED today for evaluation of a left lower extremity injury that she sustained yesterday while at work and slipping and falling. Patient states this is a workers comp injury. She states she twisted her left knee on the fall. She complains of left knee and left ankle pain. Patient states she is not able to ambulate as her left knee feels unstable and briseida when she walks. No other injury sustained during her fall. Review of Systems Resp: Denies: dyspnea GI: Denies: abdominal pain Musc: Reports: joint pain (L knee, L ankle), joint swelling (L knee, L ankle) and limited range of motion; Denies: neck pain, back pain, extremity pain, extremity swelling, joint redness or joint warmth Neuro: Denies: numbness in extremities, weakness in extremities or sensory changes PFSH ED PFSH: Medical History Atrial fibrillation status post cardioversion Atrial flutter Benign essential hypertension with target blood pressure below 140/90 CHF (congestive heart failure) Essential hypertension Surgical History No pertinent past surgical history Family History Other CAD (coronary artery disease) Social History Smoking and tobacco status: never smoked Alcohol intake: never Physical Exam Const: COMMON NORMALS: no acute distress, patient oriented x3, no limitations and alert GENERAL APPEARANCE: cooperative NUTRITIONAL APPEARANCE: obese morbidly obese ORIENTATION/CONSCIOUSNESS: Yes awake, Yes oriented to person, Yes oriented to place and Yes oriented to time HENMT: COMMON NORMALS: normocephalic and atraumatic HEAD & SCALP: normal to inspection, normocephalic and atraumatic Neck/C-Spine: COMMON NORMALS: full ROM CERVICAL SPINE: Yes cervical ROM normal, No pain with cervical ROM and No Cervical spine tenderness Chest: COMMONS NORMALS: normal inspection of the chest and normal palpation of entire chest wall Resp: COMMON NORMALS: normal respiratory effort Back/Pelvis: COMMON NORMALS: thoracic and lumbar spine normal to inspection, no thoracic nor lumbar tenderness and thoraco-lumbar ROM normal Extremity: LEFT LOWER EXTREMITY: Yes knee joint (TTP medial joint line) Left knee: Yes inspection (effusion noted), Yes ROM (limited secondary to pain) and Yes neurovascular exam (normal) and Yes ankle joint (TTP throughout ankle; swelling noted; no bony deformities appreciated) Left ankle: Yes neurovascular exam (normal) Neuro: GRIS COMA SCALE: document GCS findings [place] coma scale eye opening: Spontaneous [place] coma scale verbal response: Orientated [place] coma scale motor response: Obey commands Gris coma scale total score: 15 COMMON NORMALS: patient oriented x3, moves all extremities, no focal motor deficits and no sensory deficits noted SENSORIUM/ORIENTATION: Yes alert, Yes oriented to person, Yes oriented to place and Yes oriented to time Skin: TRAUMA: no lacerations or abrasions Course Vital Signs: Vital signs: Vital Signs Temperature 97.7 F 10/23/21 15:36 Pulse Rate 52 L 10/23/21 15:36 Respiratory Rate 16 10/23/21 20:13 Blood Pressure 162/94 10/23/21 15:36 Pulse Oximetry 96 10/23/21 15:36 MDM - Extremity Injury (Lower) MDM Narrative: Medical decision making narrative: Given history and physical exam/XR findings I would be concerned for a possible internal derangement of left knee. Patient will be placed in EMMA wrap and given crutches. Recommend she follow-up with Worker's Comp for further evaluation and possible MRI of knee. Imaging Data^: XR L ankle: Radiologist's impression: [facility] [address] [place] [address] XRay Report Signed Patient: Poonam Javier Unit #: [id number] : 1965 Age/Sex: 55 / F ADM Date: 10/23/21 Loc: ER Room/Bed: Attending Dr: Ordering Provider/Ordering MD: Nikki Coreas Date of Service: 10/23/21 Procedure(s): XR ankle LT min 3V* [id number] Accession Number(s): [id number] Report Number: [id number] PROCEDURE INFORMATION: Exam: XR Left Ankle Exam date and time: 10/23/2021 3:58 PM Age: 55 years old Clinical indication: Injury or trauma; Blunt trauma; Patient HX: Left knee/ankle pain post fall; Additional info: Fall injury TECHNIQUE: Imaging protocol: XR Left ankle. Views: 3 or more views. Total images: 3 COMPARISON: No relevant prior studies available. FINDINGS: Bones/joints: No visible fracture, subluxation, or dislocation. Achilles enthesophyte. Mild osteoarthritis of the tarsals. Soft tissues: Soft tissue swelling over the lateral malleolus. XR/XR ankle LT min 3V* [id number] IMPRESSION: 1. No visible fracture. 2. Soft tissue swelling over the lateral malleolus. Dictated By: Rodolfo Lewis Signed By: Rodolfo Lewis Signed Date/Time: 10/23/21 1648 DD/ 1558 XR L knee: Radiologist's impression: [address] [address] XRay Report Signed Patient: Poonam Javier Unit #: [id number] : 1965 Age/Sex: 55 / F ADM Date: 10/23/21 Loc: ER Room/Bed: Attending Dr: Ordering Provider/Ordering MD: Nikki Coreas Date of Service: 10/23/21 Procedure(s): XR knee LT 3V* [id number] Accession Number(s): [id number] Report Number: [id number] PROCEDURE INFORMATION: Exam: XR Left Knee Exam date and time: 10/23/2021 3:58 PM Age: 55 years old Clinical indication: Injury or trauma; Blunt trauma; Patient HX: Left knee/ankle pain post fall; Additional info: Fall injury TECHNIQUE: Imaging protocol: XR Left knee. Views: 3 views. Total images: 3 COMPARISON: No relevant prior studies available. FINDINGS: Bones/joints: Moderate joint effusion. No visible fracture, subluxation, or dislocation. Soft tissues: Unremarkable. XR/XR knee LT 3V* [id number] IMPRESSION: Moderate joint effusion. Dictated By: Rodolfo Lewis Signed By: Rodolfo Lewis Signed Date/Time: 10/23/21 1647 DD/ 1558 Discharge Plan Discharge Patient Disposition: Home Clinical Impression: Acute internal derangement of left knee Left ankle sprain Qualifiers: Encounter type: initial encounter Involved ligament of ankle: unspecified ligament Qualified Code(s): S93.402A - Sprain of unspecified ligament of left ankle, initial encounter Condition: Stable Prescriptions: New ibuprofen 800 mg tablet 800 mg PO Q8H PRN (Reason: pain) Qty: 20 RF: 0 hydrocodone-acetaminophen 5-325 mg tablet 1 tab PO Q6H PRN (Reason: pain) Qty: 14 RF: 0 No Action rivaroxaban 20 mg tablet 20 mg PO DAILY 30 Days Qty: 30 RF: 5 sertraline 50 mg tablet 50 mg PO DAILY@0800 Qty: 90 RF: 0 Zofran 4 mg tablet 4 mg PO Q8H PRN (Reason: nausea and vomiting) 4 Days Qty: 15 RF: 1 digoxin 125 mcg (0.125 mg) tablet 125 mcg PO DAILY Qty: 90 RF: 3 metoprolol tartrate 50 mg tablet 50 mg PO BID Qty: 180 RF: 3 Aldactone 25 mg tablet 25 mg PO DAILY@0800 30 Days Qty: 30 RF: 2 Pacerone 200 mg tablet 200 mg PO DAILY 60 Days Qty: 60 RF: 1 furosemide 40 mg tablet 40 mg PO BID 30 Days Qty: 180 RF: 0 potassium chloride [Klor-Con M20] 20 mEq Tablet,Er Particles/Crystals 20 meq PO BID Qty: 60 RF: 3 Discharge Orders: Discharge ED (Routine); Ordered 10/23/21 Ordered By: Luba Matias Referrals: Aimee Chavira DO [Primary Care Provider] - Patient Instructions: Opioid Safety Activity Restrictions/Additional Instructions: [facility] is committed to fighting the nationwide opiate epidemic. We are providing ALL patients with information regarding opiate safety. If you received opiate pain medication during your stay or if you received a prescription for opiate pain medication-please review this handout. If not, you may disregard. Thank you. As we discussed please follow-up with Worker's Comp. as directed. Coding Level of Care Code ED Carpenter Assistant for Richie Weber
[2021-10-23 20:13] VITALS: RESP 16
== END 2021-10-23 20:24 | disposition home or self-care (01) ==
PROVIDERS: Emergency Provider Physician Assistant; PCP Family Medicine
DX: M23.92 Unspecified internal derangement of left knee (principal); S93.402A Sprain of unspecified ligament of left ankle, initial encounter; W01.0XXA Fall on same level from slipping, tripping and stumbling without subsequent striking against object, initial encounter; Y99.0 Civilian activity done for income or pay; I48.91 Unspecified atrial fibrillation; I48.92 Unspecified atrial flutter; I11.0 Hypertensive heart disease with heart failure; I50.9 Heart failure, unspecified; Z79.01 Long term (current) use of anticoagulants
CPT/HCPCS: 73562; 73610; 99283; E0114

== ENCOUNTER → 2021-11-28 11:53 | Outpatient (BNVA) | payer OTHER, SELFPAY | PROVIDERS: PCP Family Medicine; Visit Provider Family Medicine | DX: I10 Essential (primary) hypertension (principal) | CPT/HCPCS: 80053; 80061; 82043; 85025 ==

== ENCOUNTER → 2021-11-29 14:22 | Outpatient (BNVA) | payer OTHER, SELFPAY | PROVIDERS: PCP Family Medicine; Visit Provider Family Medicine | DX: R89.9 Unspecified abnormal finding in specimens from other organs, systems and tissues (principal) | CPT/HCPCS: 83036 ==

== ENCOUNTER 2022-05-29 12:20 | Outpatient (CLI) | payer OTHER, SELFPAY ==
[2022-05-29 13:22] LABS: Basophils # 0.1 10^3/uL (0.0-0.1); Basophils % 0.7 %; Eosinophils # 0.1 10^3/uL (0.0-0.8); Eosinophils % 1.5 %; Hematocrit 42.9 % (37.0-47.0); Hemoglobin 13.5 g/dL (11.5-15.3); Lymphocytes # 1.3 10^3/uL (0.8-4.8); Lymphocytes % 17.2 %; Mean Corpuscular HGB Conc 31.5 g/dL (30.0-36.0); Mean Corpuscular Hemoglobin 28.7 pg (28.0-34.0); Mean Corpuscular Volume 91.3 fl (81-99); Mean Platelet Volume 10.8 fL (7.4-10.4); Monocytes # 0.4 10^3/uL (0.2-0.9); Monocytes % 4.7 %; Neutrophils # 5.69 10^3/uL (1.8-7.7); Neutrophils % 75.6 %; Nucleated Red Blood Cells % 0 %; Platelet Count 272 10^3/cmm (130-400); Red Cell Distribution Width 12.9 % (12.1-15.1); White Blood Count 7.5 10^3/uL (4.0-10.0)
[2022-05-29 13:30] LABS: Erythrocyte Sedimentation Rate 12 mm/hr (0-15)
[2022-05-29 13:52] LABS: Alanine Aminotransferase 46 U/L (0-33); Albumin Level 4.2 g/dL (3.5-5.2); Alkaline Phosphatase 100 U/L (35-105); Anion Gap 16.6 (5-19); Aspartate Amino Transferase 30 U/L (0-32); Blood Urea Nitrogen 15 mg/dL (6-20); Calcium 8.9 mg/dL (8.5-10.5); Carbon Dioxide 26 mmol/L (22-29); Chloride 99 mmol/L (98-107); Globulin 2.7 g/dL (1.3-4.6); Glomerular Filtration Rate 73.7 mL/min (90-130); Glucose 149 mg/dL (65-115); Osmolality Calculated 290 mOsm/kg (285-295); Potassium 3.6 mmol/L (3.5-5.1); Sodium 138 mmol/L (136-145); Total Bilirubin 0.4 mg/dL (0.15-1.2); Total Protein 6.9 g/dL (6.6-8.7)
[2022-05-30 15:18] LABS: Cyclic Citrullinated Peptide <16 UNITS
[2022-05-31 17:58] LABS: Anti-Nuclear Antibody Pattern Nuclear, Speckled; Anti-Nuclear Antibody Screen POSITIVE (NEGATIVE); Anti-Nuclear Antibody Titer 1:40 titer
== END 2022-05-29 12:21 | disposition home or self-care (01) ==
LOC: LAB 12:23
PROVIDERS: PCP Family Medicine; Visit Provider Family Medicine
DX: M25.50 Pain in unspecified joint (principal)
CPT/HCPCS: 36415; 80053; 85025; 85651; 86038; 86140; 86200; 86431

== ENCOUNTER → 2022-08-07 10:07 | Outpatient (BNVA) | payer OTHER, SELFPAY | PROVIDERS: PCP Family Medicine; Referring Provider Family Medicine; Visit Provider Internal Medicine Rheumatology | DX: M25.50 Pain in unspecified joint (principal); S86.912A Strain of unspecified muscle(s) and tendon(s) at lower leg level, left leg, initial encounter; R76.8 Other specified abnormal immunological findings in serum; M19.041 Primary osteoarthritis, right hand; M19.042 Primary osteoarthritis, left hand | CPT/HCPCS: 72170; 73130; 73562; 73630 ==

== ENCOUNTER → 2023-07-12 10:05 | Outpatient (BNVA) | payer OTHER, SELFPAY | PROVIDERS: PCP Family Medicine; Visit Provider Family Medicine | DX: I10 Essential (primary) hypertension (principal); Z68.41 Body mass index [BMI] 40.0-44.9, adult; E66.01 Morbid (severe) obesity due to excess calories | CPT/HCPCS: 80053; 80061; 82043; 85025 ==

== ENCOUNTER 2023-10-06 02:09 | Emergency (ER) | payer OTHER, SELFPAY ==
[2023-10-06 02:11] VITALS: BP 105/74; PULSE 84; RESP 16; TEMP 36.6; O2SAT 94; BMI 47.2
--- NOTE | 2023-10-06 02:29 | CTR_ITS ---
PROCEDURE INFORMATION: Exam: CT Head Without Contrast Exam date and time: 10/06/2023 2:46 AM Age: 57 years old Clinical indication: Altered mental status/memory loss; Patient HX: EMS arrival for AMS due to edible thc ingestion TECHNIQUE: Imaging protocol: Computed tomography of the head without contrast. Radiation optimization: All CT scans at this facility use at least one of these dose optimization techniques: automated exposure control; mA and/or kV adjustment per patient size (includes targeted exams where dose is matched to clinical indication); or iterative reconstruction. REPORTING DATA: Count of CT and Cardiac NM exams in prior 12 months: This patient has received 0 known CTs and 0 known cardiac nuclear medicine studies in the 12 months prior to the current study. COMPARISON: No relevant prior studies available. RADIATION DOSE METRICS: Total DLP (mGy-cm): 1055.58 FINDINGS: Brain: There is no evidence of acute parenchymal hemorrhage, extra-axial collection, or acute infarction. There is no mass effect, midline shift, or downward herniation. Cerebral ventricles: No ventriculomegaly. Paranasal sinuses: Visualized sinuses are unremarkable. No fluid levels. Mastoid air cells: Visualized mastoid air cells are well aerated. Bones/joints: Unremarkable. No acute fracture. Soft tissues: Unremarkable. CT/CT head wo con* [id number] IMPRESSION: No acute intracranial abnormality.
[2023-10-06 02:51] LABS: Basophils % 0.4 %; Eosinophils % 0.3 %; Hematocrit 42.6 % (36-47); Lymphocytes % 9.7 %; Mean Corpuscular HGB Conc 33.3 g/dL (30-55); Mean Corpuscular Volume 89.9 fl (85-98); Mean Platelet Volume 10.3 fL (7.4-10.4); Monocytes # 0.6 10^3/uL (0.2-0.9); Monocytes % 6.2 %; Neutrophils # 8.53 10^3/uL (1.8-7.7); Nucleated Red Blood Cells % 0 %; Platelet Count 257 10^3/cmm (157-399); Red Blood Count 4.74 10^6/uL (3.85-5.65); Red Cell Distribution Width 12.3 % (12.1-15.1); White Blood Count 10.28 10^3/uL (3.29-11.43)
--- NOTE | 2023-10-06 02:53 | ED_ITS ---
HPI - Altered Mental Status 2 General: Chief Complaint: Altered Mental Status Stated Complaint: AMS Time Seen by Provider: 10/06/23 02:15 History of Present Illness: 57-year-old female brought in by EMS. S he presents. 911 was called due to an alteration mental status. According to EMS, she had smoked marijuana, and had significant mental status change following. On their arrival, she became combative, physically and verbally, and had to be given ketamine and lorazepam. She presents lethargic, but answers simple questions. She does not remember the events that brought her to the hospital. She does state that she has not been ill. No fever. No vomiting. No shortness of breath. She has no pain she says. Review of Systems 2 General: Reports: ROS unobtainable due to mental status Const: Denies: fever(s) ENMT: Denies: throat pain Card: Denies: chest pain Resp: Denies: dyspnea GI: Denies: abdominal pain or vomiting Musc: Denies: neck pain PFSH ED 2 PFSH: Medical History Osteoarthritis of hands, bilateral Positive CALDERON (antinuclear antibody) CALDERON 1:40 not clinically significant Polyarthralgia Benign essential hypertension with target blood pressure below 140/90 Atrial fibrillation status post cardioversion Essential hypertension CHF (congestive heart failure) Atrial flutter Surgical History No pertinent past surgical history Family History Other CAD (coronary artery disease) Social History Smoking and tobacco/nicotine status: never used tobacco/nicotine Alcohol intake: never Substance/Drug Use: never Physical Exam 2 Const: GENERAL APPEARANCE: lethargic; not in distress and not ill appearing ORIENTATION/CONSCIOUSNESS: Yes lethargic HENMT: COMMON NORMALS: normocephalic, atraumatic and Normal external nose present HEAD & SCALP: normocephalic and atraumatic FACE & SINUS: normal facial exam and face symmetric NOSE: Normal external nose present MOUTH: N ormal oral and palatal mucosa present Eye: COMMON NORMALS: Equal, round and reactive pupils present and EOMs intact bilaterally PUPIL: Yes Equal, round and reactive pupils present Neck/C-Spine: GENERAL: Yes trachea midline Chest: CHEST: Yes Symmetrical chest wall rise Resp: COMMON NORMALS: normal respiratory effort, No use of accessory muscles and clear to auscultation bilaterally AUSCULTATION: clear to auscultation bilaterally Cardio: COMMON NORMALS: regular rate and regular rhythm RATE: regular rate RHYTHM: regular rhythm GI: COMMON NORMALS: Normal to inspection, nondistended, normoactive bowel sounds present and Soft to palpation PALPATION: Yes Soft to palpation Extremity: COMMON NORMALS: no pedal edema Neuro: GRIS COMA SCALE: document GCS findings Gris coma scale eye opening: To sound [place] coma scale verbal response: Confused [place] coma scale motor response: Obey commands [place] coma scale total score: 13 S ENSORIUM/ORIENTATION: Yes lethargic Psych: COMMON NORMALS: cooperative, denies homicidal ideation and denies suicidal ideation Skin: COMMON NORMALS: no rashes or lesions noted GENERAL SKIN EXAM: no rashes or lesions noted Course 2 Vital Signs: Vital signs: Vital Signs Temperature 98 F 10/06/23 02:11 Pulse Rate 84 10/06/23 02:11 Respiratory Rate 16 10/06/23 02:11 Blood Pressure 105/74 10/06/23 02:11 Pulse Oximetry 94 10/06/23 02:11 MDM - Altered Mental Status Medical Decision Making Patient is lethargic but responsive. She is on anticoagulants. She also is diabetic. CBC is normal. Vitals been normal. Potassium 3.3. Sugar 122. Head CT is negative. Patient has history of atrial fibrillation. She has been in a sinus rhythm here. EKG shows a sinus rhythm with a rate of 60 with a normal axis normal intervals no ST changes. She will be allowed discharge home. To return for any return or worsening of symptoms Lab Data 10/06/23 02:39 10/06/23 02:[address] 10/06/23 02:29 IMPRESSION: No acute intracranial abnormality. Laboratory Results WBC 10.28 10^3/uL (3.29-11.43) 10/06/23 02:39 RBC 4.74 10^6/uL (3.85-5.65) 10/06/23 02:39 Hgb 14.20 g/dL (11.27-16.99) 10/06/23 02:39 Hct 42.6 % (36-47) 10/06/23 02:39 MCV 89.9 fl (85-98) 10/06/23 02:39 MCH 30.0 pg (27-33) 10/06/23 02:39 MCHC 33.3 g/dL (30-55) 10/06/23 02:39 RDW 12.3 % (12.1-15.1) 10/06/23 02:39 Plt Count 257 10^3/cmm (157-399) 10/06/23 02:39 MPV 10.3 fL (7.4-10.4) 10/06/23 02:39 Neut % (Auto) 83.0 % 10/06/23 02:39 Lymph % (Auto) 9.7 % 10/06/23 02:39 [place] % (Auto) 6.2 % 10/06/23 02:39 Eos % (Auto) 0.3 % 10/06/23 02:39 Baso % (Auto) 0.4 % 10/06/23 02:39 Neut # (Auto) 8.53 10^3/uL (1.8-7.7) H 10/06/23 02:39 Lymph # (Auto) 1.0 10^3/uL (0.8-4.8) 10/06/23 02:39 [place] # (Auto) 0.6 10^3/uL (0.2-0.9) 10/06/23 02:39 Eos # (Auto) 0.0 10^3/uL (0.0-0.8) 10/06/23 02:39 Baso # (Auto) 0.0 10^3/uL (0.0-0.1) 10/06/23 02:39 Nucleated RBC % (auto) 0 % 10/06/23 02:39 Nucleated RBCs # 0.0 /100WBC 10/06/23 02:39 Sodium 139 mmol/L (136-145) 10/06/23 02:39 Potassium 3.3 mmol/L (3.5-5.1) L 10/06/23 02:39 Chloride 99 mmol/L (98-107) 10/06/23 02:39 Carbon Dioxide 31 mmol/L (22-29) H 10/06/23 02:39 Anion Gap 12.3 (5-19) 10/06/23 02:39 BUN 18 mg/dL (6-20) 10/06/23 02:39 Creatinine 0.8 mg/dL (0.5-0.9) 10/06/23 02:39 GFR Calculation 73.4 mL/min (90-130) L 10/06/23 02:39 Glucose 122 mg/dL (65-115) H 10/06/23 02:39 Calculated Osmolality 291 mOsm/kg (285-295) 10/06/23 02:39 Calcium 9.5 mg/dL (8.5-10.5) 10/06/23 02:39 Total Bilirubin 0.3 mg/dL (0.15-1.2) 10/06/23 02:39 AST 22 U/L (0-32) 10/06/23 02:39 ALT 32 U/L (0-33) 10/06/23 02:39 Alkaline Phosphatase 119 U/L (35-105) H 10/06/23 02:39 Total Protein 6.9 g/dL (6.6-8.7) 10/06/23 02:39 Albumin 4.4 g/dL (3.5-5.2) 10/06/23 02:39 Globulin 2.5 g/dL (1.3-4.6) 10/06/23 02:39 Salicylates < 0.3 mg/dL (3-10) L 10/06/23 02:39 Acetaminophen < 5.0 ug/mL (10-30) L 10/06/23 02:39 Ethyl Alcohol < 10 mg/dL (0-10) 10/06/23 02:39 All radiology interpretation(s) finalized by discharge Discharge Plan Discharge Patient Disposition: Home Clinical Impression: Altered mental status Condition: Stable Prescriptions: No Action Victoza 2-Koby 0.6 mg/0.1 mL (18 mg/3 mL) pen injector 0.6 mg SUBCUT DAILY Qty: 6 0RF Rx Instructions: Take with 1.8 mg dose tramadol 50 mg tablet 50 mg PO Q6H Qty: 28 0RF Victoza 3-Koby 0.6 mg/0.1 mL (18 mg/3 mL) pen injector See Rx Instructions .ROUTE .COMPLEX Qty: 9 0RF Dose Instruction: INJECT 1.8MG SUBCUTANEOUSLY DAILY Rx Instructions: INJECT 1.8MG SUBCUTANEOUSLY DAILY digoxin 125 mcg (0.125 mg) tablet 125 mcg PO DAILY Qty: 90 3RF metoprolol tartrate 50 mg tablet 50 mg PO BID Qty: 180 3RF Pacerone 200 mg tablet 200 mg PO DAILY 90 Days Qty: 90 3RF furosemide 40 mg tablet See Rx Instructions .ROUTE .COMPLEX Qty: 180 1RF Dose Instruction: TAKE 1 TABLET BY MOUTH TWICE DAILY Rx Instructions: TAKE 1 TABLET BY MOUTH TWICE DAILY rivaroxaban 20 mg tablet 20 mg PO DAILY Qty: 90 3RF Rx Instructions: must administer with evening meal 340 B Discharge Orders: Discharge ED (Routine); Ordered 10/06/23 Ordered By: Rodney Wolfe Referrals: Aimee Chavira DO [Primary Care Provider] - 1-3 days Patient Instructions: Altered Mental Status (ED), Opioid Safety, Pain Management Activity Restrictions/Additional Instructions: Return for any return of or worsening symptoms. See your doctor next week Coding Level of Care Code ED Pillow Agent for Richie Weber
--- NOTE | 2023-10-06 03:12 | ECG_ITS ---
[facility] Test Date: 2023-10-06 Pat Name: Poonam Javier Department: Room: Gender: Female Corporate Account Executive: : 1965 Requested By: Rodney Hoffman Order Number: [id number] Carson MD: Tray Parr M.D. Measurements Intervals [place] Rate: 64 P: 43 NC: 199 QRS: 12 QRSD: 98 T: 4 QT: 455 QTc: 472 Interpretive Statements SINUS RHYTHM Compared to ECG 02/28/2021 10:14:43 T-wave abnormality no longer present Possible ischemia no longer present Electronically Signed On 10-06-2023 9:47:42 CANCER REGISTRY MANAGER by Tray Parr M.D. [id number]
[2023-10-06 03:15] LABS: Alanine Aminotransferase 32 U/L (0-33); Albumin Level 4.4 g/dL (3.5-5.2); Alkaline Phosphatase 119 U/L (35-105); Anion Gap 12.3 (5-19); Aspartate Amino Transferase 22 U/L (0-32); Blood Urea Nitrogen 18 mg/dL (6-20); Calcium 9.5 mg/dL (8.5-10.5); Carbon Dioxide 31 mmol/L (22-29); Chloride 99 mmol/L (98-107); Globulin 2.5 g/dL (1.3-4.6); Glomerular Filtration Rate 73.4 mL/min (90-130); Glucose 122 mg/dL (65-115); Osmolality Calculated 291 mOsm/kg (285-295); Potassium 3.3 mmol/L (3.5-5.1); Sodium 139 mmol/L (136-145); Total Bilirubin 0.3 mg/dL (0.15-1.2); Total Protein 6.9 g/dL (6.6-8.7)
[2023-10-06 03:19] LABS: Acetaminophen < 5.0 ug/mL (10-30); Alcohol Level < 10 mg/dL (0-10); Salicylate < 0.3 mg/dL (3-10)
[2023-10-06 04:19] VITALS: BP 118/86; PULSE 116; RESP 25; O2SAT 97
== END 2023-10-06 04:47 | disposition home or self-care (01) ==
PROVIDERS: Emergency Provider Emergency Medicine; PCP Family Medicine
DX: R41.82 Altered mental status, unspecified (principal); I11.0 Hypertensive heart disease with heart failure; I50.9 Heart failure, unspecified
CPT/HCPCS: 36415; 70450; 80053; 80307; 85025; 93005; 99284

== ENCOUNTER → 2024-06-18 11:46 | Outpatient (BNVA) | payer OTHER, SELFPAY | PROVIDERS: PCP Family Medicine; Visit Provider Nurse Practitioner Family | DX: I48.0 Paroxysmal atrial fibrillation (principal) | CPT/HCPCS: 80053; 80061; 83036; 84443; 85025 ==

== ENCOUNTER → 2024-12-24 14:13 | Outpatient (BNVA) | payer OTHER, SELFPAY | PROVIDERS: PCP Family Medicine; Visit Provider Nurse Practitioner Family | DX: I10 Essential (primary) hypertension (principal) | CPT/HCPCS: 80053; 80061; 83036; 84443; 85025 ==